=== PATIENT | male | born 1995 | race Caucasian/White ===

== ENCOUNTER 2017-05-28 18:26 | Emergency (ER) | payer SELFPAY ==
[~2017-05-28] VITALS: Ht 190.5 cm; Wt 68.0 kg
[~2017-05-28 18:26] MED LIST: AMOXICILLIN500 MG PO; BENADRYL25 MG PO; KEPPRA1000 MG PO; KEPPRA500 MG PO; NAPROXEN500 MG PO; NORCO 5-325 TA1 EACH PO; PHENYTOIN SODI300 MG PO; PREDNISONE20 MG PO; TRAMADOL HCL50 MG PO; TRAZODONE HCL100 MG PO; TRAZODONE HCL150 MG PO
== END 2017-05-28 19:38 | disposition home or self-care (01) ==
LOC: ED 18:26
DX: R55 Syncope and collapse (principal); F17.200 Nicotine dependence, unspecified, uncomplicated; Z91.038 Other insect allergy status; Z88.7 Allergy status to serum and vaccine
CPT/HCPCS: 99282

== ENCOUNTER 2017-05-29 17:23 | Emergency (ER) | payer SELFPAY ==
[~2017-05-29] VITALS: Ht 190.5 cm; Wt 74.8 kg
== END 2017-05-29 19:50 | disposition home or self-care (01) ==
LOC: ED 17:23
DX: R11.10 Vomiting, unspecified (principal); F17.200 Nicotine dependence, unspecified, uncomplicated; Z91.038 Other insect allergy status; Z88.7 Allergy status to serum and vaccine
CPT/HCPCS: 80053; 83690; 85025; 96361; 96374; 96375; 99283; J1885; J2405; J7030

== ENCOUNTER 2017-06-01 14:49 | Emergency (ER) | payer SELFPAY ==
[~2017-06-01] VITALS: Ht 190.5 cm; Wt 74.8 kg
== END 2017-06-01 15:48 | disposition home or self-care (01) ==
LOC: ED 14:49
DX: R56.9 Unspecified convulsions (principal); F17.200 Nicotine dependence, unspecified, uncomplicated; Z91.030 Bee allergy status; Z90.49 Acquired absence of other specified parts of digestive tract
CPT/HCPCS: 99283

== ENCOUNTER 2017-11-14 12:10 | Emergency (ER) | payer SELFPAY ==
[~2017-11-14] VITALS: Ht 190.5 cm; Wt 72.6 kg
== END 2017-11-14 13:03 | disposition left against medical advice (07) ==
LOC: ED 12:10
DX: G40.909 Epilepsy, unspecified, not intractable, without status epilepticus (principal); F17.200 Nicotine dependence, unspecified, uncomplicated; Z91.030 Bee allergy status; Z88.8 Allergy status to other drugs, medicaments and biological substances
CPT/HCPCS: 96374; 99283; J2405

== ENCOUNTER 2018-07-12 02:28 | Emergency (ER) | payer MEDICAID ==
[~2018-07-12] VITALS: Ht 190.5 cm; Wt 72.6 kg
== END 2018-07-12 04:45 | disposition home or self-care (01) ==
LOC: ED 02:28
DX: L50.9 Urticaria, unspecified (principal); F10.10 Alcohol abuse, uncomplicated; F17.200 Nicotine dependence, unspecified, uncomplicated; Z91.030 Bee allergy status; Z88.8 Allergy status to other drugs, medicaments and biological substances
CPT/HCPCS: 96374; 96375; 99282; J1200; J2930

== ENCOUNTER 2019-03-19 14:33 | Emergency (ER) | payer SELFPAY ==
--- OUTSIDE RECORDS SUMMARY | 2019-03-19 14:36 | XMS ---
PreManage Notification: MARY HILLMAN Security Manager Company Events No recent Security Events currently on file CRITERIA MET - Group Notification CARE PROVIDERS There are no care providers on record at this time. Diony has no Care Guidelines for this patient. Terri VISIT COUNT (12 MO.) 2 [facility] TOTAL 2 NOTE: Visits indicate total known visits. ED/C VISIT TRACKING (12 MO.) 03/19/2019 14:34 [facility] [place] TYPE: Emergency COMPLAINT: - SEIZURE 07/12/2018 02:29 [facility] [place] TYPE: Emergency COMPLAINT: - BODY RASH DIAGNOSES: - Nicotine dependence, unspecified, uncomplicated - Bee allergy status - Urticaria, unspecified - Rash and other nonspecific skin eruption - Alcohol abuse, uncomplicated - Allergy status to other drugs, medicaments and biological substances status INPATIENT VISIT TRACKING (12 MO.) No inpatient visits to display in this time frame [email or web address]
== END 2019-03-19 16:40 | disposition short-term general hospital (02) ==
LOC: ED 14:33
DX: S02.91XA Unspecified fracture of skull, initial encounter for closed fracture (principal); S06.6X9A Traumatic subarachnoid hemorrhage with loss of consciousness of unspecified duration, initial encounter; R56.9 Unspecified convulsions; F17.200 Nicotine dependence, unspecified, uncomplicated; W17.89XA Other fall from one level to another, initial encounter; Z91.030 Bee allergy status
CPT/HCPCS: 70450; 72125; 80053; 85025; 96374; 96375; 99285-25; G0480

== ENCOUNTER 2020-03-23 09:19 | Emergency (ER) | payer SELFPAY ==
[~2020-03-23] VITALS: Ht 190.5 cm; Wt 83.9 kg
--- OUTSIDE RECORDS SUMMARY | ~2020-03-23 | XMS | Encounter Summary ---
Demographics + + + | Address | [address] | | | [place] [address] | + + + | Home Phone | | + + + | Preferred Language | Unknown | + + + | Marital Status | Single | + + + | Sabianism Affiliation | NRP | + + + | Race | White | + + + | Ethnic Group | Not or | + + + Author + + + | Author | [facility] | + + + | Organization | [facility] | + + + | Address | Unknown | + + + | Phone | Unavailable | + + + Support + + +---------+ + | Name | Relationship | Address | Phone | + + +---------+ + | Cheri Hillman | ECON | Unknown | | + + +---------+ + | Marleny Harris | ECON | Unknown | | + + +---------+ + Care Team Providers + +------+ + | Care Chief Digital Officer Name | Role | Phone | + +------+ + | No Pcp Per Patient | PCP | Unavailable | + +------+ + Reason for Visit +--------+ + | Reason | Comments | +--------+ + | Trauma | | +--------+ + AUTH/CERT +--------+--------+ + + + + | Status | Reason | Specialty | Diagnoses / | Referred By | Referred To | | | | | Procedures | Contact | Contact | +--------+--------+ + + + + | | | | | | | +--------+--------+ + + + + Encounter Details +--------+ + + + + | Date | Type | Department | Care Team | Description | +--------+ + + + + | 03/19/ | Hospital | [address] | Esha Gooden, | | | 2019 - | Encounter | [address] | [address] | | | | | [facility] | [address] | | | 03/20/ | | [facility] [place] | [place], [place] | | | 2019 | | [address] | [address] | | | | | [phone] | [phone] | | | | | | | | | | | | Ren Bose, | | | | | | [address] | | | | | | [address] | | | | | | [place], [place] | | | | | | [address] | | | | | | [phone] | | | | | | | | +--------+ + + + + Social History + +-------+ +--------+------+ | Tobacco Use | Types | Packs/Day | Years | Date | | | | | Used | | + +-------+ +--------+------+ | Never Assessed | | | | | + +-------+ +--------+------+ + + + | Sex Assigned at | Date Recorded | | | | + + + | Not on file | | + + + + + + + | Job Start Date | Occupation | Industry | + + + + | Not on file | Not on file | Not on file | + + + + + + + + | Travel History | Travel Start | Travel End | + + + + + + | No recent travel history available. | + + documented as of this encounter Last Filed Vital Signs + + + + + | Vital Sign | Reading | Time Taken | Comments | + + + + + | Blood Pressure | 117/65 | 03/20/2019 4:00 PM | | | | | PDT | | + + + + + | Pulse | 62 | 03/20/2019 4:00 PM | | | | | PDT | | + + + + + | Temperature | 36.4 C (97.5 F) | 03/20/2019 4:00 PM | | | | | PDT | | + + + + + | Respiratory Rate | 14 | 03/20/2019 4:00 PM | | | | | PDT | | + + + + + | Oxygen Saturation | 99% | 03/20/2019 4:00 PM | | | | | PDT | | + + + + + | Inhaled Oxygen | - | - | | | Concentration | | | | + + + + + | Weight | 73 kg (160 lb 15 oz) | 03/19/2019 7:13 PM | | | | | PDT | | + + + + + | Height | 188 cm (6' 2") | 03/19/2019 7:13 PM | | | | | PDT | | + + + + + | Body Mass Index | 20.66 | 03/19/2019 7:13 PM | | | | | PDT | | + + + + + documented in this encounter Functional Status + + + + | Functional Status | Response | Date of Assessment | + + + + | Because of a physical, mental, or emotional | No | 03/20/2019 | | condition, do you have serious difficulty | | | | doing errands alone such as visiting the | | | | doctor? | | | + + + + + + + + | Cognitive Status | Response | Date of Assessment | + + + + | Because of a physical, mental, or emotional | No | 03/20/2019 | | condition, do you have serious difficulty | | | | concentrating, remembering, or making | | | | decisions? (5 years old or older) | | | + + + + documented as of this encounter Discharge Summaries Clyde Sanches MD - 03/20/2019 4:53 PM PDTFormatting of this note might be different from jo ann johnston. [facility] Discharge Summary Discharging Provider: Clyde Sanches MD Admitting Surgeon: Ren Bose MD PCP: No Pcp Per PATIENT Admission Date: 03/19/2019 Discharge Date: 03/20/19 Hospital Stay: 1 day(s) Reason for Admission: Fall from 5 feet Principal Final Diagnosis: 1. Subarachnoid hemorrhage 2. Temporal bone fracture Additional Diagnoses: None Procedures: None Active Pre-existing diagnoses/comorbidities: Epilepsy Hospital course: Patient was admitted as a trauma after having a seizure and fall about 5 feet onto his head . He has a history of epilepsy. He was found to have a non-displaced temporal bone fracture and trace subarachnoid hemorrhage. Neurosurgery was consulted and recommended non-operative management. ENT was consulted for the temporal bone fracture and also recommended non-operat shaun management. Neurology was consulted for antiepileptic medication adjustment. Social work was consulted to assist in obtaining insurance coverage. Patient was medically appropriate for discharge on hospital day 1 and was sent home in good condition. The patient worked with therapies prior to discharge and is now stable for discharge. All q uestions and concerns were addressed. Discharge Medications: Medication List START taking these medications oxyCODONE (immediate release) 5 mg Tab Commonly known as: ROXICODONE Take 1 tablet by mouth every six hours as needed for breakthrough pain. valproic acid 250 mg Cap Commonly known as: DEPAKENE Take 2 capsules by mouth two times daily. Allergies: Allergies Allergen Reactions Tetanus And Diphther. Tox (Pf) Unknown States it made him sick Additional Instructions: Condition on Discharge Good Diet Regular Regular diet- There are no restrictions to your diet. You may eat or drink whatever you pr efer, though healthy food choices are recommended. Activity Activity restrictions: No strenuous activity Other Discharge Orders and Instructions Basic seizure precautions as below (please provide to the patient for discharge) No driving until 3 months seizure free No operating heavy machinery. No tub baths without close supervision, this could place you at risk for drowning. No swimming without close supervision, this could place you at risk for drowning. Avoid unsecured heights that could place you at risk for serious injury if you were to lose consciousness or awareness and fall. If the patient has an event please gently lower them to the floor if possible, roll them on their side so their tongue does not prevent them from breathing, also so they do not choke on their secretions or vomit. Do not place anything in their mouth such as finger since they can get bitten during a seizure. If you suspect the person has inhaled his/her own vomit, c all a doctor immediately. After a seizure: Allow the person to lie quietly. As they awaken, gently call them by name and explain what happened and where they are. It is not cause for alarm if the person urinates or has a bowel movement after the seizure. If the person has an injury, such as heavy bleeding from the tongue, call an ambulance. Try to write down an accurate description of the seizure as soon as possible. Try to note h ow long the seizure lasted and what the person was doing before, during and after. Things that might cause a seizure Stressful situations Fever Drinking alcohol Constipation Caffeine Hyperventilation Low blood sugar Loud noises Menstruation Flashing lights Caffeine Lack of sleep Fatigue Drinking a lot of water SURGERY DISCHARGE INSTRUCTIONS DIET: Resume your normal pre-operative diet, however it is advisable to eat a light diet for a da y or two following surgery. It is normal to have a decreased appetite for several days afte r surgery. Many patients find that eating multiple small meals after surgery is easier than trying to eat 3 large meals. ACTIVITY: Follow above activity orders for seizure precautions If taking narcotic pain medicine (e.g. Oxycodone, Percocet, Hydrocodone, Vicodin) you canno t drive or operate machinery, as these medicines may make you drowsy and lose concentration. Your reaction time and judgement will be impaired, just as though you were intoxicated. WOUND CARE: You have jarrod in your skin that were used to close your incision. These will stay in unt il you are seen in clinic. When it is time for them to come out, someone at the clinic will remove them. A small amount of redness at each staple is normal. Shower: When your dressing is removed in 48 hours, you may shower regularly and allow soapy water to wash over your incision(s). Pat them dry; do not scrub. Baths: Do not submerge your incisions (tub/pool/bath) for at least 7 days. Rubbing/Irritation: If clothes rub your incision, we recommend covering with loose gauze or a band-aid after your outer dressing has been removed. Sunscreen: Protection of a recent incision from the sun is preferable for the first 6 month s, otherwise the scar tissue may darken abnormally. Using sunblock over incisions reduces th is cosmetic concern. Lotions/Creams: Do not use other lotions, creams or ointments on incision unless directed t o do so by your physician. Bruising: You may experience some bruising around the incision site. If you have concerns about the amount of bruising, or there is a hard bulge associated with the brusing please contact your digital project coordinator. MEDICATIONS: See medication list for changes. Pain Medications: Acetaminophen (Tylenol) and ibuprofen (Advil, Motrin) can be very effecti ve for post-operative pain. As long as you don't have allergies or sensitivities to these me dications you may take 650mg of acetaminophen and 400mg ibuprofen every 6 hours. Stagger the m every 3 hours for better pain control. Take ibuprofen with food and limit its use to one week, as it can irritate your stomach. If you still experience significant post-operative p ain, then you may take the prescribed narcotic-opioid (e.g. oxycodone, hydrocodone, Vicodin, [place], Percocet, Dilaudid) as needed. However, Vicodin/[place] and Percocet contain acetam inophen in the pill itself so be sure to take EITHER Vicodin/Percocet OR Tylenol (Acetaminop hen), not both at the same time. Opioid pain medications may cause constipation, so be sure to take a stool softener if you take an opioid pain medication. Swelling/Pain: In addition to pain medications, you should apply an ice pack or bag of froz en peas in a thin cloth for the next [address] over the bandaged incision and the area of surgery (e.g. groin regions) for about 20-30 minutes at a time. This will help to n umb the area and reduce swelling, however it does not hasten healing. CONSTIPATION: Narcotic-opioid pain medications (e.g. oxycodone, hydrocodone, Vicodin, [place], Percocet, Di laudid) can be constipating, therefore you should take a stool softener on the same day as s tarting your narcotic pain medicine. Options include: Milk of Magnesia: 2 Tablespoons Twice daily Colace (=Docusate): 1 pill Twice daily While these are some recommendations, any xtxl-cyi-gjjusws stool softener should work, and generics are fine to use. Increase your fluids, especially your intake of water Increase your activity. Walk frequently. Discharging Provider: Clyde Sanches MD Discharging Surgeon : Adriano Raymond MD [facility] Division of Acute Care Surgery/Critical Care [address] [place] [address] [email or web address] signed by Adriano Raymond MD at 03/21/2019 11:02 AM PDT Associated attestation - Adriano Raymond MD - 03/21/2019 11:02 AM PDTAttending: I saw and examined Mary Hillman ([id number]) with Clyde Sanches MD on 03/20/2019 and agree with the assessment and plan as outlined in this discharge summary. Adriano Raymond MD [employer] Supervisor Trauma, Critical Care & Acute Care Surgery documented in this encounter Discharge Instructions Instructions Noam Nolasco RN - 03/20/2019Patient Education Materials: Seizure, Head injury Additional Instructions: Please follow all of your discharge instructions. Take medications as ordered. Monitor for signs of neurological impairment. Seek medical attention if your sy mptoms return. Discharge Nurse: NOAM NOLASCO RN Date: 03/20/2019 Discharge Time: 4:17 PM AttachmentsThe following attachments cannot be sent through Care Everywhere.Seizure (Eng[place])HEAD INJURY (IRISH)documented in this encounter Medications at Time of Discharge + + + +---------+ + + | Medication | Sig | Dispensed | Refills | Start | End Date | | | | | | Date | | + + + +---------+ + + | oxyCODONE | Take 1 tablet by | 15 | 0 | 03/20/20 | | | (immediate release) | mouth every six | tablet | | 19 | | | 5 mg oral tablet | hours as needed for | | | | | | | breakthrough pain. | | | | | + + + +---------+ + + | valproic acid 250 | Take 2 capsules by | 120 | 3 | 03/20/20 | | | mg oral capsule | mouth two times | capsule | | 19 | | | | daily. | | | | | + + + +---------+ + + documented as of this encounter Progress Notes Fredo Suarez MD,MPH - 03/20/2019 10:47 AM PDTBRIEF NEUROSURGERY NOTE 03/20/19 10:47 AM Reviewed overnight MRI with staff. We agree with official Radiology report that there is hi gh suspicion for an underlying Right temporal AVM, which would explain his seizure disorder and his presentation today. This was discussed with Dr. Ulises Easley, cerebrovascular neuros urgeon on-call. We recommended formal catheter-directed angiography, which we would be able to schedule for tomorrow, 03/21, if Mr. Hillman remained admitted. He was appraised of this as w ell as the risks and benefits of angiography and potential treatment modalities for a vascul ar malformation, if identified. He states his intention to leave the hospital as soon as pos sible and does not wish to pursue this while an inpatient. I advised him that in addition to seizures, AVMs carry some rupture risk with the potential for devastating neurologic conseq uences, though this is unquantifiable without the information provided by an angiogram. Full y aware of the risks and responsibility he is taking upon himself, he opted for outpatient f ollow-up and an elective angiogram at some future date. We will do our best to coordinate th is after discharge. Please contact the Neurosurgery resident on-call pager [phone] with questions or concerns. Fredo Suarez M.D., M.P.H. R2 Resident Physician Neurological Surgery Pager: [phone] signed by Fredo Suarez MD,MPH at 03/20/2019 10:51 AM Clyde Hassan MD - 03/20/2019 6:43 AM PDTFormatting of this note might be different from the origi nal. Trauma / Surgical Critical Care Service - CONSULTATION NOTE Name: MARY HILLMAN Date: 03/20/2019 Time: 6:44 AM Author: Clyde Sanches MD HPI: 24 y.o. male admitted on 03/19/2019 6:17 PM after a fall from 5 feet. Patient has a h istory of epilepsy. Injuries: 1. BIG 1 SAH 2. Left non-displaced temporal bone Fx Procedures: None Review of Systems Constitutional - Negative for fevers/chills Eyes/Ears/Nose/Mouth/Throat - Negative for changes in vision Cardiovascular - Negative for chest pain, dysrhythmia Respiratory - Negative for dyspnea Gastrointestinal - Negative for nausea or vomiting, no history GI bleed hepatitis Genitourinary - Negative for dysuria Hematologic/Lymphatic - Negative for bruising Skin - Negative for rash, lesion Endocrine - Negative for history of diabetes Vitals: Reviewed in Epic Physical Examination: General: adult male, laying in bed, NAD HEENT: MMM Lungs: Unlabored breathing on , CTAB CV: Regular, Non-tachy Abdomen: Soft, nondistended, nontender Extremities: WWP Neuro: GCS 15, Cranial nerves 2-12 intact to confrontation, speech normal and fluent, stren gth symmetric and 5/5 in upper and lower extremities. Sensation intact to light touch in upp er and lower extremities. Labs: Lab Results Component Value Date WBC 8.10 03/20/2019 HB 13.1 03/20/2019 HCT 37.1 03/20/2019 PLT 195 03/20/2019 MCV 89.8 03/20/2019 RDW 37.2 03/20/2019 Lab Results Component Value Date NA 140 03/20/2019 K 3.6 03/20/2019 CL 107 03/20/2019 BICARB 24 03/20/2019 BUN 11 03/20/2019 CR 0.65 03/20/2019 GLU 83 03/20/2019 CA 8.4 03/20/2019 AST 16 03/19/2019 ALT 17 03/19/2019 AP 60 03/19/2019 TBILI 0.5 03/19/2019 TP 7.0 03/19/2019 ALB 3.7 03/20/2019 ANIONGAP 9 03/20/2019 ANIONALBCOR 9 03/20/2019 Lab Results Component Value Date APTT 28.6 03/19/2019 FIBRINOGEN 228 03/19/2019 Assessment: 24yo M with epilepsy s/p fall from 5 feet. Active Issues/Plan: Neuro/Pain: Acute pain -Multimodal SAH -Stable -Neurosurgery has signed off Epilepsy -Neurology consulted -Keppra 750mg bid -Social work for insurance issues HEENT: Non-displaced left temporal bone Fx -ENT consulted, non-op, signed-off -Ear drops -Mechanical soft diet -Monitor for CSF leak CV: Bradycardic, Asymptomatic -Montior -replace lytes prn Pulmonary/Chest: No acute issues at this time GI/FEN/Lytes: Mechanical soft diet Replace lytes prn /Renal: No acute issues at this time MSK/SKIN: No acute issues at this time Endo: No acute issues at this time Heme: No acute issues at this time ID: No infectious concerns at this time F: Mechamical soft A: Multimodal S: None T: SCD H: > 30 degrees U: None G: WML Spines: Cleared Dispo: ICU level care, can transfer to [facility] at 1900 tonight Clyde Sanches MD (R2) General Surgery [facility] TSICU Team Pager: [phone] Associated attestation - Adriano Raymond MD - 03/21/2019 11:02 AM PDTFormatting of this note m ight be different from the original. I saw and examined Mary Hillman ([id number]) with the ICU team on 03/20/2019. I agree with the assessment and plan as outlined in this note and participated in the planning of care. I hav e personally reviewed all pertinent labarotory findings, radiographs, and physiologic parame ters. I personally performed pertinent parts of the physical examination and personally form ulated the plan with the TSICU team. Mary Hillman remains hospitalized for the the following injuries and problems: Patient Active Problem List Diagnosis SAH (subarachnoid hemorrhage) ([facility]) Closed fracture of base of skull, unspecified laterality, initial encounter ([facility]) Closed fracture of left side of mandible, unspecified mandibular site, initial encounte r ([facility]) Seizure disorder ([facility]) Encounter for monitoring anticonvulsant therapy Fall from ground level May transfer to [facility] after 24 hours of stable neurochecks. Continue PT/OT for mobility uriel didier. Will continue monitor adequate pain control and incentive spirometry for pulmonary jovanny iet. sales enablement manager for disposition planning and placement. Adriano Raymond MD [employer] Supervisor Division of Trauma and Critical Care Amilcar Cross MD - 03/20/2019 4:02 AM PDT NEUROSURGERY PROGRESS NOTE INTERVAL UPDATE: - NAEON - Na 140 - INR 1.07 OBJECTIVE: EXAM: BP 113/65 | Pulse 53 | Temp 36.8 C (98.2 F) | Resp 14 | Ht 1.88 m (6' 2") | Wt 73 kg (160 lb 15 oz) | SpO2 98% | BMI 20.66 kg/m | BSA 1.95 m AAOx3 PERRL, EOMI, FS, no hearing on L, TML BUE/BLE 5/5, no drift SILT LABS: Reviewed. Pertinent labs noted above. ASSESSMENT/PLAN: Mary Hlilman is a 24yo man w epilepsy who presents after seizure/GLF, found to have small R temporal tSAH and left petrous bone fracture with expected left-sided hearing loss. - Ok tx - F/u MRI read - DVT ppx ok 48 hrs after stable CTH - Anti-plt/anti-coag ok 2 wks after stable CTH NSG will sign off. Amilcar Cross MD Neurosurgery PGY2 [id number] documented in this en counter Plan of Treatment Not on filedocumented as of this encounter Procedures + +--------+ + + + | Procedure Name | Priori | Date/Time | Associated Diagnosis | Comments | | | ty | | | | + +--------+ + + + | EEG ROUTINE | Routin | 03/20/2019 | | Results for this | | | e | 12:14 PM | | procedure are in the | | | | PDT | | results section. | + +--------+ + + + | MRI BRAIN EPILEPSY | Urgent | 03/20/2019 | | Results for this | | WO CONTRAST | | 2:31 AM | | procedure are in the | | | | PDT | | results section. | + +--------+ + + + | CBC (HEMOGRAM) ONLY | Urgent | 03/20/2019 | | Results for this | | | | 12:22 AM | | procedure are in the | | | | PDT | | results section. | + +--------+ + + + | RENAL FUNCTION SET | Urgent | 03/20/2019 | | Results for this | | (NA,K,CL,CO2,BUN,CRE | | 12:22 AM | | procedure are in the | | AT,GLUC,CA,PHOS,ALB | | PDT | | results section. | | ) | | | | | + +--------+ + + + | CBC ONLY | Urgent | 03/20/2019 | | Results for this | | | | 12:22 AM | | procedure are in the | | | | PDT | | results section. | + +--------+ + + + | MAGNESIUM, PLASMA | Urgent | 03/20/2019 | | Results for this | | | | 12:22 AM | | procedure are in the | | | | PDT | | results section. | + +--------+ + + + | 12 LEAD ECG | Routin | 03/19/2019 | | Results for this | | | e | 7:18 PM | | procedure are in the | | | | PDT | | results section. | + +--------+ + + + | CT HEAD WO CONTRAST | Urgent | 03/19/2019 | | Results for this | | | | 7:02 PM | | procedure are in the | | | | PDT | | results section. | + +--------+ + + + | CT TEMPBONE BENIGN | Urgent | 03/19/2019 | | Results for this | | DISEASE WO CONTRAST | | 7:02 PM | | procedure are in the | | | | PDT | | results section. | + +--------+ + + + | CHEM 8 W/H&H,POC | Urgent | 03/19/2019 | SAH (subarachnoid | Results for this | | | | 6:58 PM | hemorrhage) (HCC) | procedure are in the | | | | PDT | | results section. | + +--------+ + + + | BG-LAC,POC ISTAT | Urgent | 03/19/2019 | SAH (subarachnoid | Results for this | | | | 6:57 PM | hemorrhage) (HCC) | procedure are in the | | | | PDT | | results section. | + +--------+ + + + | COAGULOPATHY PANEL | Urgent | 03/19/2019 | | Results for this | | (INR,APTT,FIBRINOGEN | | 6:47 PM | | procedure are in the | | ) | | PDT | | results section. | + +--------+ + + + | RAINBOW HOLD TUBE - | Urgent | 03/19/2019 | | | | RED TOP | | 6:21 PM | | | | | | PDT | | | + +--------+ + + + | CBC (HEMOGRAM) ONLY | Urgent | 03/19/2019 | | Results for this | | | | 6:21 PM | | procedure are in the | | | | PDT | | results section. | + +--------+ + + + | RAINBOW HOLD, CORE | Urgent | 03/19/2019 | | Results for this | | PANEL | | 6:21 PM | | procedure are in the | | | | PDT | | results section. | + +--------+ + + + | COMPLETE METABOLIC | Urgent | 03/19/2019 | | Results for this | | SET | | 6:21 PM | | procedure are in the | | (NA,K,CL,CO2,BUN,CRE | | PDT | | results section. | | AT,GLUC,CA,AST,ALT,B | | | | | | VASYL TOTAL,ALK | | | | | | PHOS,ALB,PROT TOTAL) | | | | | + +--------+ + + + | CBC ONLY | Urgent | 03/19/2019 | | Results for this | | | | 6:21 PM | | procedure are in the | | | | PDT | | results section. | + +--------+ + + + | ANTIBODY SCREEN | Urgent | 03/19/2019 | | Results for this | | | | 6:21 PM | | procedure are in the | | | | PDT | | results section. | + +--------+ + + + | BLOOD BANK HOLD TUBE | Urgent | 03/19/2019 | | Results for this | | - DON | | 6:21 PM | | procedure are in the | | | | PDT | | results section. | | T PROCESS | | | | | + +--------+ + + + | TYPE AND SCREEN | Urgent | 03/19/2019 | | Results for this | | | | 6:21 PM | | procedure are in the | | | | PDT | | results section. | + +--------+ + + + | ABO & RH TYPE | Urgent | 03/19/2019 | | Results for this | | | | 6:21 PM | | procedure are in the | | | | PDT | | results section. | + +--------+ + + + | ETHANOL (ALCOHOL), | Urgent | 03/19/2019 | | Results for this | | BLOOD | | 6:21 PM | | procedure are in the | | | | PDT | | results section. | + +--------+ + + + | CONFIRMATORY ABO/RH | Routin | 03/19/2019 | | Results for this | | | e | 6:21 PM | | procedure are in the | | | | PDT | | results section. | + +--------+ + + + | MAGNESIUM, PLASMA | Urgent | 03/19/2019 | | Results for this | | | | 6:21 PM | | procedure are in the | | | | PDT | | results section. | + +--------+ + + + documented in this encounter Results EEG ROUTINE (03/20/2019 12:14 PM PDT) + + + | Narrative | Performed At | + + + | Patient Name: Mary Hillman Date of : 1995 Medical | [facility] - | | Record Number: [id number] Date of Test: 03/20/2019 Place of | [facility], | | Service: [place] [facility] [phone] [phone] [facility] Department: EEG HRC - | POINT OF CARE | | ROUTINE EEG Reason for Exam: Assess seizure risk. | TESTS | | History: Mary Hillman is a 24 year old man presenting with | | | "seizure disorder (no records available) who was admitted after a GLF | | | with resultant R frontotemporal SAH and L petrous bone fracture on | | | whom neurology is consulted with concern for breakthrough seizure. | | | Also has likely right temporal AVM." State: Awake only | | | Medications: acetaminophen (TYLENOL) tablet 1,000 mg, 1,000 mg, | | | oral, Q8H bisacodyl (DULCOLAX) suppository 10 mg, 10 mg, rectal, | | | DAILY PRN HYDROmorphone (DILAUDID) injection 0.5 mg, 0.5 mg, | | | intravenous, Q2H PRN levETIRAcetam (KEPPRA) tablet 750 mg, 750 mg, | | | oral, BID nicotine (NICOTROL) 14 mg/24 hr 1 patch, 1 patch, | | | transdermal, DAILY oxyCODONE (immediate release) (ROXICODONE) tablet | | | 2.5-5 mg, 2.5-5 mg, oral, Q3H PRN polyethylene glycol (MIRALAX) | | | packet 34 g, 34 g, oral, TID PRN senna-docusate (SENOKOT S) 8.6-50 mg | | | 1 tablet, 1 tablet, oral, BID valproic acid (DEPAKENE) capsule 500 | | | mg, 500 mg, oral, BID | | | | | | Methods: This study was a Routine EEG with a duration of 27 minutes. | | | The recording was performed with routine electrodes applied | | | according to the 10-20 electrode placement system. Video, EKG, and EOG | | | monitoring were utilized. The recording was obtained on a digital | | | system. EEG computer review was utilized. Automated digital spike and | | | seizure detection analysis was used, along with patient-activated | | | alarms and nursing observations. EEG Description: Background: | | | The background is variable, reactive, and with overall normal | | | voltage. In the maximally alert state, there is a well-modulated | | | posterior dominant rhythm of 9Hz that attenuates with eye opening. | | | Symmetric diffuse frontocentral beta range activity was present. | | | No sleep or drowsiness was captured. There are occasional | | | periods of frontally-predominant generalized 2-3Hz slowing, at times | | | appearing semi rhythmic. Focal slowing: Occasional independent | | | 4-6Hz left frontotemporal and right temporal slowing is seen, though | | | rarely this occurs synchronously in bilateral temporal regions. Rare | | | 2-3Hz right hemispheric slowing is seen. Epileptiform activity: | | | Rare poorly formed blunted left temporal sharp waves are seen, | | | maximal at T3 though with a broad left frontotemporal field. | | | Ictal activity: No seizures were recorded. Clinical Events: No | | | push-button events. Activation: Sensory stimulation was not | | | performed. EKG: Single EKG lead showed a normal sinus rhythm. | | | | | | Impression: This EEG capturing wakefulness is abnormal due to the | | | presence of: 1) occasional generalized frontally-predominant slowing, | | | 2) independent left frontotemporal and right temporal slowing, 3) rare | | | right hemispheric slowing, 4) rare poorly formed left temporal | | | epileptiform discharges. Clinical correlation: Focal epileptiform | | | activity can indicate underlying cortical hyperexcitability and an | | | increased risk of focal-onset seizures from this region. Focal slowing | | | is suggestive of underlying structural or functional abnormality and | | | may be related to known left skull fracture, right traumatic SAH, | | | possible right temporal AVM. Diffuse slowing is a nonspecific | | | abnormal finding consistent with numerous processes causing a diffuse | | | disturbance of cerebral function (aka encephalopathy). No seizures | | | or clinical events were seen. Results were paged to primary team | | | and communicated to neurology consult team. | | | | | | Electronically signed on 03/20/2019 at 2:09 PM JASEN LOYA MD. | | | I reviewed the study and agree with the interpretation above. | | | Electronically signed on 03/20/2019 at 3:53 PM - [facility] | | | ,[facility]. [employer] Caregiver of Neurology, [facility] | | | Center Suggested Modifier: None GC - Resident Present Suggested | | | CPT: 19548 - EEG Routine Awake Only Suggested Dx: R56.9 Unspecified | | | convulsions G93.49 Other encephalopathy G40.89 Other seizures | | | | | + + + + + + + + | Performing | Address | City/State/Zipcode | Phone Number | | Organization | | | | + + + + + | [facility] | [address] | [place], [place] | | | LOCO POINT OF CARE | [address] | [address] | | | TESTS | | | | + + + + + MRI BRAIN EPILEPSY WO CONTRAST (03/20/2019 2:31 AM PDT) + + | Specimen | + + | | + + + + + | Narrative | Performed At | + + + | - - - - - - - - ADDENDUM #1 - - - - - - - - ADDENDUM: | [facility] | | Please note that there are no findings suspicious for high flow | RADIOLOGY VOICE | | vascular malformation on this exam. I have personally reviewed the | RECOGNITION 2 | | images and, if necessary, edited the report. I agree with the report | | | as now presented. Final signature: Jaren Boyd MD | | | 03/20/2019 8:08 AM Preliminary: Jaren Boyd MD | | | Dictation initiated: Jaren Boyd MD 03/20/2019 8:07 AM - | | | - - - - - - - ORIGINAL REPORT - - - - - - - - EXAM: MR BRAIN | | | EPILEPSY WO CONTRAST HISTORY: seizure hx, new SAH, possible temp | | | bone mass COMPARISON: Head CT 03/19/2019 TECHNIQUE: | | | Multiplanar multi-sequence MRI of the brain without contrast. | | | FINDINGS: BRAIN: Hemorrhagic contusions involving the lateral | | | portions of the right superior and middle temporal gyri appear similar | | | to recent CT. No hydrocephalus, herniation or mass. No acute large | | | vessel infarction. No evidence of malformation of cortical | | | development. Hippocampi are symmetric and normal in bulk and signal | | | intensity. Hippocampal volumes are normal. SOFT TISSUES AND | | | MARROW: Left lateral scalp contusion redemonstrated. Fluid | | | opacification of the left mastoid, corresponding to temporal bone | | | fracture better depicted on dedicated temporal bone CT. FACE AND | | | ORBITS: Opacification of the sphenoid sinuses, suboptimally evaluated | | | here. IMPRESSION: Hemorrhagic contusions involving the lateral | | | aspect of the right temporal lobe, similar to yesterday's head CT. | | | Left lateral scalp contusion and underlying left temporal bone | | | fracture redemonstrated. Foci of | | | susceptibility within the right temporal lobe corresponds to | | | hyperdensity on comparison CTs is redemonstrated. There are | | | serpiginous tangle of flow voids in this area, suspicious for vascular | | | malformation I have personally reviewed the images and, if | | | necessary, edited the report. I agree with the report as now | | | presented. Final signature: Jaren Boyd MD 03/20/2019 | | | 7:45 AM Preliminary: Reina Aguilar DO Dictation initiated: | | | Reina Aguilar DO 03/20/2019 5:48 AM | | + + + + + | Procedure Note | + + | Service Account, Radiant Res In Interface - 03/20/2019 8:09 AM PDT - - - - - - - - | | ADDENDUM #1 - - - - - - - - ADDENDUM: Please note that there are no findings | | suspicious for high flow vascular malformation on this exam. I have personally reviewed | | the images and, if necessary, edited the report. I agree with the report as now | | presented. Final signature: Jaren Boyd MD 03/20/2019 8:08 AM Preliminary: | | Jaren Boyd MD Dictation initiated: Jaren Boyd MD 03/20/2019 8:07 | | AM - - - - - - - - ORIGINAL REPORT - - - - - - - - EXAM: MR BRAIN EPILEPSY WO CONTRAST | | HISTORY: seizure hx, new SAH, possible temp bone mass COMPARISON: Head CT 03/19/2019 | | TECHNIQUE: Multiplanar multi-sequence MRI of the brain without contrast. FINDINGS: | | BRAIN: Hemorrhagic contusions involving the lateral portions of the right superior and | | middle temporal gyri appear similar to recent CT. No hydrocephalus, herniation or mass. | | No acute large vessel infarction. No evidence of malformation of cortical development. | | Hippocampi are symmetric and normal in bulk and signal intensity. Hippocampal volumes | | are normal. SOFT TISSUES AND MARROW: Left lateral scalp contusion redemonstrated. Fluid | | opacification of the left mastoid, corresponding to temporal bone fracture better | | depicted on dedicated temporal bone CT.FACE AND ORBITS: Opacification of the sphenoid | | sinuses, suboptimally evaluated here. IMPRESSION: Hemorrhagic contusions involving the | | lateral aspect of the right temporal lobe, similar to yesterday's head CT. Left lateral | | scalp contusion and underlying left temporal bone fracture redemonstrated. | | Foci of susceptibility within the right temporal lobe corresponds to hyperdensity on | | comparison CTs is redemonstrated. There are serpiginous tangle of flow voids in this | | area, suspicious for vascular malformation I have personally reviewed the images and, if | | necessary, edited the report. I agree with the report as now presented. Final | | signature: Jaren Boyd MD 03/20/2019 7:45 AM Preliminary: Reina Aguilar DO | | Dictation initiated: Reina Aguilar DO 03/20/2019 5:48 AM | | | |BRAIN: | |Hemorrhagic contusions involving the lateral portions of the right superior and middle temp oral gyri appear similar to recent CT. No hydrocephalus, herniation or mass. No acute large vessel infarction. No | |evidence of malformation of cortical development. Hippocampi are symmetric and normal in bu lk and signal intensity. Hippocampal volumes are normal. | | | |SOFT TISSUES AND MARROW: Left lateral scalp contusion redemonstrated. Fluid opacification o f the left mastoid, corresponding to temporal bone fracture better depicted on dedicated tem poral bone CT. | |FACE AND ORBITS: Opacification of the sphenoid sinuses, suboptimally evaluated here. | | | |IMPRESSION: | | | |Hemorrhagic contusions involving the lateral aspect of the right temporal lobe, similar to yesterday's head CT. | | | |Left lateral scalp contusion and underlying left temporal bone fracture redemonstrated. | | | | | | | | | | | | | | | | | | | | | | | |Foci of susceptibility within the right temporal lobe corresponds to hyperdensity on compar vicki CTs is redemonstrated. There are serpiginous tangle of flow voids in this area, suspici ous for vascular malformation | | | |I have personally reviewed the images and, if necessary, edited the report. I agree with th e report as now presented. | | | |Final signature: Jaren Boyd MD 03/20/2019 7:45 AM | |Preliminary: Reina Aguilar DO | |Dictation initiated: Reina Aguilar DO 03/20/2019 5:48 AM | + + + +---------+ + + | Performing | Address | City/State/Zipcode | Phone Number | | Organization | | | | + +---------+ + + | [facility] | | | | | VOICE RECOGNITION 2 | | | | + +---------+ + + CBC (HEMOGRAM) ONLY (03/20/2019 12:22 AM PDT) + + + + + + | Component | Value | Ref Range | Performed | Pathologist | | | | | At | Signature | + + + + + + | WHITE CELL | 8.10 | 3.50 - 10.80 | [facility] | | | COUNT | | K/cu mm | LABORATORY | | | | | | SERVICES, | | | | | | CORE | | + + + + + + | RED CELL | 4.13 (L) | 4.50 - 6.00 | [facility] | | | COUNT | | M/cu mm | LABORATORY | | | | | | SERVICES, | | | | | | CORE | | + + + + + + | HEMOGLOBIN | 13.1 (L) | 13.5 - 17.5 | [facility] | | | | | g/dL | LABORATORY | | | | | | SERVICES, | | | | | | CORE | | + + + + + + | HEMATOCRIT | 37.1 (L) | 41.0 - 53.0 % | [facility] | | | | | | LABORATORY | | | | | | SERVICES, | | | | | | CORE | | + + + + + + | MCV | 89.8 | 80.0 - 100.0 fL | [facility] | | | | | | LABORATORY | | | | | | SERVICES, | | | | | | CORE | | + + + + + + | MCHC | 35.3 | 32.0 - 36.0 | [facility] | | | | | g/dL | LABORATORY | | | | | | SERVICES, | | | | | | CORE | | + + + + + + | RDW SD | 37.2 | 35.1 - 46.3 fL | [facility] | | | | | | LABORATORY | | | | | | SERVICES, | | | | | | CORE | | + + + + + + | PLATELET | 195 | 150 - 400 K/cu | [facility] | | | COUNT | | mm | LABORATORY | | | | | | SERVICES, | | | | | | CORE | | + + + + + + | MPV | 9.4 (L) | 9.7 - 12.3 fL | [facility] | | | | | | LABORATORY | | | | | | SERVICES, | | | | | | CORE | | + + + + + + | NRBC% | 0.0 | 0.0 - 0.3 % | [facility] | | | | | | LABORATORY | | | | | | SERVICES, | | | | | | CORE | | + + + + + + | NRBC# | 0.00 | 0.00 - 0.02 | [facility] | | | | | K/cu mm | LABORATORY | | | | | | SERVICES, | | | | | | CORE | | + + + + + + + + | Specimen | + + | Blood - Blood | | (substance) | + + + + + + + | Performing | Address | City/State/Zipcode | Phone Number | | Organization | | | | + + + + + | [facility] | [address] | [place] [address] | | | SERVICES, CORE | [address] | | | + + + + + MAGNESIUM, PLASMA (03/20/2019 12:22 AM PDT) + +-------+ + + + | Component | Value | Ref Range | Performed | Pathologist | | | | | At | Signature | + +-------+ + + + | MAGNESIUM,P | 1.9 | 1.6 - 2.6 mg/dL | [facility] | | | LASMA | | | LABORATORY | | | | | | SERVICES, | | | | | | CORE | | + +-------+ + + + + + | Specimen | + + | Blood - Blood | | (substance) | + + + + + + + | Performing | Address | City/State/Zipcode | Phone Number | | Organization | | | | + + + + + | [facility] | [address] | [place] [address] | | | [address] | [address] | | | + + + + + RENAL FUNCTION SET (NA,K,CL,CO2,BUN,CREAT,GLUC,CA,PHOS,ALB ) (03/20/2019 12:22 AM PDT) + + + + + + | Component | Value | Ref Range | Performed | Pathologist | | | | | At | Signature | + + + + + + | GLUCOSE, | 83 | 70 - 99 mg/dL | [facility] | | | PLASMA | | | LABORATORY | | | (LAB) | | | SERVICES, | | | | | | CORE | | + + + + + + | BUN, PLASMA | 11 | 6 - 20 mg/dL | [facility] | | | (LAB) | | | LABORATORY | | | | | | SERVICES, | | | | | | CORE | | + + + + + + | CREATININE | 0.65 (L) | 0.70 - 1.30 | [facility] | | | PLASMA | | mg/dL | LABORATORY | | | (LAB) | | | SERVICES, | | | | | | CORE | | + + + + + + | EGFR | >60 | >60 mL/min | [facility] | | | - | | | LABORATORY | | | ANGOLAN | | | SERVICES, | | | | | | CORE | | + + + + + + | EGFR NON | >60 | >60 mL/min | [facility] | | | -YOGESH | | | LABORATORY | | | RICAN | | | SERVICES, | | | | | | CORE | | + + + + + + | SODIUM, | 140 | 136 - 145 | [facility] | | | PLASMA | | mmol/L | LABORATORY | | | (LAB) | | | SERVICES, | | | | | | CORE | | + + + + + + | POTASSIUM, | 3.6 | 3.4 - 5.0 | [facility] | | | PLASMA | | mmol/L | LABORATORY | | | (LAB) | | | SERVICES, | | | | | | CORE | | + + + + + + | CHLORIDE, | 107 | 97 - 108 mmol/L | [facility] | | | PLASMA | | | LABORATORY | | | (LAB) | | | SERVICES, | | | | | | CORE | | + + + + + + | TOTAL CO2, | 24 | 21 - 32 mmol/L | [facility] | | | PLASMA | | | LABORATORY | | | (LAB) | | | SERVICES, | | | | | | CORE | | + + + + + + | CALCIUM, | 8.4 (L) | 8.6 - 10.2 | [facility] | | | PLASMA | | mg/dL | LABORATORY | | | (LAB) | | | SERVICES, | | | | | | CORE | | + + + + + + | CALCIUM(ALB | 8.6 | 8.6 - 10.2 | [facility] | | | CORRECTED) | | mg/dL | LABORATORY | | | | | | SERVICES, | | | | | | CORE | | + + + + + + | ALBUMIN, | 3.7 | 3.5 - 4.7 g/dL | [facility] | | | PLASMA | | | LABORATORY | | | (LAB) | | | SERVICES, | | | | | | CORE | | + + + + + + | PHOSPHORUS, | 4.0 | 2.4 - 4.7 mg/dL | [facility] | | | PLASMA | | | LABORATORY | | | (LAB) | | | SERVICES, | | | | | | CORE | | + + + + + + | POTASSIUM | No Hemo | | [facility] | | | CMNT | | | LABORATORY | | | | | | SERVICES, | | | | | | CORE | | + + + + + + | ANION GAP | 9 | 4 - 11 mmol/L | [facility] | | | | | | LABORATORY | | | | | | SERVICES, | | | | | | CORE | | + + + + + + | ANION | 9 | 4 - 11 mmol/L | [facility] | | | GAP(ALB | | | LABORATORY | | | CORRECTED) | | | SERVICES, | | | | | | CORE | | + + + + + + + + | Specimen | + + | Blood - Blood | | (substance) | + + + + + | Narrative | Performed At | + + + | GFR is estimated using the MDRD equation recommended by the | [facility] | | National Kidney Disease Education Program. Estimated GFR | LABORATORY | | Interpretive Information: <60 mL/min/1.73 sq m | SERVICES, CORE | | Chronic Kidney Disease <15 mL/min/1.73 sq m | | | Kidney Failure Estimated GFR greater than 60 mL/min/1.73 sq m is of | | | limited clinical value. The MDRD equation is not valid in the | | | following situations: - Patients under 18 years of age - Severe | | | malnutrition or obesity - Vegetarian diet - Rapidly changing kidney | | | function - Amputees, paraplegics, or other muscle-wasting diseses | | + + + + + + + + | Performing | Address | City/State/Zipcode | Phone Number | | Organization | | | | + + + + + | [facility] | [address] | [place] [address] | | | [address] | [address] | | | + + + + + 12 LEAD ECG (03/19/2019 7:18 PM PDT) + + + + + + | Component | Value | Ref Range | Performed | Pathologist | | | | | At | Signature | + + + + + + | VENTRICULAR | 59 | bpm | [facility] | | | RATE | | | OF | | | | | | CARDIOLOGY | | + + + + + + | ATRIAL RATE | 0 | ms | [facility] | | | | | | OF | | | | | | CARDIOLOGY | | + + + + + + | P-R | 156 | ms | [facility] | | | INTERVAL | | | OF | | | | | | CARDIOLOGY | | + + + + + + | P AXIS | -39 | deg | [facility] | | | | | | OF | | | | | | CARDIOLOGY | | + + + + + + | QRS | 126 | ms | [facility] | | | DURATION | | | OF | | | | | | CARDIOLOGY | | + + + + + + | QT | 426 | ms | [facility] | | | | | | OF | | | | | | CARDIOLOGY | | + + + + + + | STUART-TWILA | 423 | ms | [facility] | | | | | | OF | | | | | | CARDIOLOGY | | + + + + + + | R AXIS | -21 | deg | [facility] | | | | | | OF | | | | | | CARDIOLOGY | | + + + + + + | T AXIS | 65 | deg | [facility] | | | | | | OF | | | | | | CARDIOLOGY | | + + + + + + | ECG | Sinus bradycardia | | [facility] | | | IMPRESSION | | | OF | | | | | | CARDIOLOGY | | + + + + + + | ECG | IVCD, consider RBBB | | [facility] | | | IMPRESSION | | | OF | | | | | | CARDIOLOGY | | + + + + + + | ECG | ST elevation suggests | | [facility] | | | IMPRESSION | acute pericarditis- | | OF | | | | ABNORMAL ECG - | | CARDIOLOGY | | + + + + + + | ECG | Electronically signed | | [facility] | | | IMPRESSION | by: ANNY HANSEN | | OF | | | | 03-19-2019 22:18:35 | | CARDIOLOGY | | + + + + + + + + | Specimen | + + | | + + + + + | Narrative | Performed At | + + + | | | + + + + + + + + | Performing | Address | City/State/Zipcode | Phone Number | | Organization | | | | + + + + + | [facility] | [address] | [place], [place] | | | CARDIOLOGY | [address] | [phone] | | + + + + + CT HEAD WO CONTRAST (03/19/2019 7:02 PM PDT) + + | Specimen | + + | | + + + + + | Narrative | Performed At | + + + | EXAM: CT HEAD WITHOUT CONTRAST HISTORY: trauma, head bleed, | [facility] | | repeat CT head COMPARISON: Outside CT done earlier today. | RADIOLOGY VOICE | | TECHNIQUE: CT of the head without intravenous contrast. FINDINGS: | RECOGNITION 2 | | BRAIN: Foci of subarachnoid hemorrhage in the right convexity | | | sulci have mildly increased in prominence compared to prior. There is | | | also increasing effacement of the right cerebral convexity sulci. No | | | territorial infarction. No hydrocephalus. SOFT TISSUES: Mild soft | | | tissue swelling overlying the calvarial fracture. SKULL AND SKULL | | | BASE: Nondisplaced fracture of the squamous portion of the left | | | temporal bone. Redemonstration of left mastoid fracture with | | | opacification of the left external auditory canal and increasing | | | opacification within left mastoid air cells. FACE/ORBITS: Visualized | | | portions are unremarkable. PARANASAL SINUSES: Mucous retention cyst | | | in the sphenoid sinus again noted. IMPRESSION: Compared to CT | | | done few hours prior, mild interval blooming of the subarachnoid | | | hemorrhage in the right temporal sulci. Subtle increased effacement of | | | the sulci overlying the right cerebral convexity which may be related | | | to patient's seizure. Redemonstration of left temporal bone fracture. | | | I have personally reviewed the images and, if necessary, edited | | | the report. I agree with the report as now presented. Final | | | signature: Dolly Lopez MD 03/19/2019 7:46 PM Preliminary: | | | Dolly Lopez MD Dictation initiated: Dolly Lopez | | | 03/19/2019 7:39 PM | | + + + + + | Procedure Note | + + | Service Account, iPipeline Res In Interface - 03/19/2019 7:47 PM PDT EXAM: CT HEAD | | WITHOUT CONTRAST HISTORY: trauma, head bleed, repeat CT head COMPARISON: Outside CT | | done earlier today. TECHNIQUE: CT of the head without intravenous contrast. FINDINGS: | | BRAIN: Foci of subarachnoid hemorrhage in the right convexity sulci have mildly | | increased in prominence compared to prior. There is also increasing effacement of the | | right cerebral convexity sulci. No territorial infarction. No hydrocephalus. SOFT | | TISSUES: Mild soft tissue swelling overlying the calvarial fracture.SKULL AND SKULL | | BASE: Nondisplaced fracture of the squamous portion of the left temporal bone. | | Redemonstration of left mastoid fracture with opacification of the left external | | auditory canal and increasing opacification within left mastoid air cells.FACE/ORBITS: | | Visualized portions are unremarkable.PARANASAL SINUSES: Mucous retention cyst in the | | sphenoid sinus again noted. IMPRESSION: Compared to CT done few hours prior, mild | | interval blooming of the subarachnoid hemorrhage in the right temporal sulci. Subtle | | increased effacement of the sulci overlying the right cerebral convexity which may be | | related to patient's seizure. Redemonstration of left temporal bone fracture. I have | | personally reviewed the images and, if necessary, edited the report. I agree with the | | report as now presented. Final signature: Dolly Lopez MD 03/19/2019 7:46 PM | | Preliminary: Dolly Lopez MD Dictation initiated: Dolly Lopez MD | | 03/19/2019 7:39 PM | |be related to patient's seizure. Redemonstration of left temporal bone fracture. | | | |I have personally reviewed the images and, if necessary, edited the report. I agree with e report as now presented. | | | |Final signature: Dolly Lopez MD 03/19/2019 7:46 PM | |Preliminary: Dolly Lopez MD | |Dictation initiated: Dolly Lopez MD 03/19/2019 7:39 PM | + + + +---------+ + + | Performing | Address | City/State/Zipcode | Phone Number | | Organization | | | | + +---------+ + + | [facility] | | | | | VOICE RECOGNITION 2 | | | | + +---------+ + + CT TEMPBONE BENIGN DISEASE WO CONTRAST (03/19/2019 7:02 PM PDT) + + | Specimen | + + | | + + + + + | Narrative | Performed At | + + + | EXAM: CT Temporal Bones without contrast HISTORY: basilar | [facility] | | skull fx, concern for temporal bone fx COMPARISON: 03/19/2019 | RADIOLOGY VOICE | | outside CT TECHNIQUE: CT temporal bones without contrast with | RECOGNITION 2 | | coronal reformations. FINDINGS: Evaluation is somewhat limited | | | by patient positioning. Right temporal bone: The internal | | | auditory canal is normal.The cochlea, vestibule, and semicircular | | | canals are normal. There is no otosclerosis. The malleus, incus | | | and, stapes are present. The incus-stapedial joint is normal. The | | | oval and round windows are normal. Facial nerve is normal in its | | | course. The vestibular aqueduct is not dilated.The tympanic membrane | | | is normal. The internal carotid artery is normal in its course. | | | Left temporal bone: Comminuted nondisplaced left temporal bone | | | fractures and predominantly longitudinal orientation of the squamous | | | and mastoid temporal bone. Nondisplaced component involving the | | | anterior osseous portion of the external auditory canal with extension | | | through the condylar fossa at the temporomandibular joint noted. The | | | mandible appears intact. A small locules of pneumocephalus is also | | | present at the middle cranial fossa consistent with fracture component | | | violating the inner calvarial table, she along the squamous portion | | | of the temporal bone. No otic capsule violating fracture. The | | | ossicular chain appears intact, however evaluation is limited given | | | patient positioning. The facial nerve canal appears preserved. Soft | | | tissue attenuation in presumed blood products are seen within the | | | external auditory canal with retraction of the tympanic membrane. Left | | | mastoid effusion is noted. Mucous retention cyst within the | | | sphenoid sinus noted. IMPRESSION: Comminuted nondisplaced | | | longitudinally oriented left temporal bone fractures with nondisplaced | | | component coming into close proximity to the left carotid canal. CTA | | | could better evaluate vascular structures. Nondisplaced fracture | | | components also extend through the anterior external auditory canal | | | and TMJ condylar fossa. Trace pneumocephalus with squamous | | | temporal bone fracture violating the inner calvarial table. | | | Intracranial contents are otherwise better evaluated on the prior | | | outside CT. I have personally reviewed the images and, if | | | necessary, edited the report. I agree with the report as now | | | presented. Final signature: Jaren Boyd MD 03/20/2019 | | | 7:37 AM Preliminary: Bishop Dillard MD Dictation initiated: | | | Bishop Dillard MD 03/20/2019 7:11 AM | | + + + + + | Procedure Note | + + | Service Account, Radiant Res In Interface - 03/20/2019 7:38 AM PDT EXAM: CT | | Temporal Bones without contrast HISTORY: basilar skull fx, concern for temporal bone fx | | COMPARISON: 03/19/[address] TECHNIQUE: CT temporal bones without contrast with | | coronal reformations. FINDINGS: Evaluation is somewhat limited by patient positioning. | | Right temporal bone: The internal auditory canal is normal.The cochlea, vestibule, and | | semicircular canals are normal. There is no otosclerosis. The malleus, incus and, | | stapes are present. The incus-stapedial joint is normal. The oval and round windows | | are normal. Facial nerve is normal in its course. The vestibular aqueduct is not | | dilated.The tympanic membrane is normal. The internal carotid artery is normal in its | | course. Left temporal bone: Comminuted nondisplaced left temporal bone fractures and | | predominantly longitudinal orientation of the squamous and mastoid temporal bone. | | Nondisplaced component involving the anterior osseous portion of the external auditory | | canal with extension through the condylar fossa at the temporomandibular joint noted. | | The mandible appears intact. A small locules of pneumocephalus is also present at the | | middle cranial fossa consistent with fracture component violating the inner calvarial | | table, she along the squamous portion of the temporal bone. No otic capsule violating | | fracture. The ossicular chain appears intact, however evaluation is limited given | | patient positioning. The facial nerve canal appears preserved. Soft tissue attenuation | | in presumed blood products are seen within the external auditory canal with retraction | | of the tympanic membrane. Left mastoid effusion is noted. Mucous retention cyst within | | the sphenoid sinus noted. IMPRESSION:Comminuted nondisplaced longitudinally oriented | | left temporal bone fractures with nondisplaced component coming into close proximity to | | the left carotid canal. CTA could better evaluate vascular structures. Nondisplaced | | fracture components also extend through the anterior external auditory canal and TMJ | | condylar fossa. Trace pneumocephalus with squamous temporal bone fracture violating the | | inner calvarial table. Intracranial contents are otherwise better evaluated on the prior | | outside CT. I have personally reviewed the images and, if necessary, edited the report. | | I agree with the report as now presented. Final signature: Jaren Boyd MD | | 03/20/2019 7:37 AM Preliminary: Bishop Dillard MD Dictation initiated: Bishop Dillard MD 03/20/2019 7:11 AM | | | |Final signature: Jaren Boyd MD 03/20/2019 7:37 AM | |Preliminary: Bishop Dillard MD | |Dictation initiated: Bishop Dillard MD 03/20/2019 7:11 AM | + + + +---------+ + + | Performing | Address | City/State/Zipcode | Phone Number | | Organization | | | | + +---------+ + + | [facility] | | | | | VO[facility] RECOGNITION 2 | | | | + +---------+ + + CHEM 8 W/H&H,POC (03/19/2019 6:58 PM PDT) + + + + + + | Component | Value | Ref Range | Performed | Pathologist | | | | | At | Signature | + + + + + + | SODIUM, POC | 140 | 134 - 143 | [facility] | | | | | mmol/L | [facility] | | | | | | [facility] | | | | | | OF CARE | | | | | | TESTS | | + + + + + + | POTASSIUM, | 4.2 | 3.4 - 5.0 | [facility] - | | | POC | | mmol/L | [facility] | | | | | | [facility] | | | | | | OF CARE | | | | | | TESTS | | + + + + + + | CHLORIDE, | 102.0 | 97 - 108 mmol/L | [facility] - | | | POC | | | [facility] | | | | | | [facility] | | | | | | OF CARE | | | | | | TESTS | | + + + + + + | IONIZED | 1.28 | 1.14 - 1.32 | [facility] - | | | CALCIUM, | | mmol/L | [facility] | | | POC | | | [facility] | | | | | | OF CARE | | | | | | TESTS | | + + + + + + | TCO2, POC | 25 | 22 - 28 mmol/L | [facility] - | | | | | | [facility] | | | | | | [facility] | | | | | | OF CARE | | | | | | TESTS | | + + + + + + | GLUCOSE, | 90 | 60 - 99 mg/dL | [facility] - | | | POC | | | [facility] | | | | | | [facility] | | | | | | OF CARE | | | | | | TESTS | | + + + + + + | BUN, POC | 10 | 6 - 20 mg/dL | [facility] - | | | | | | [facility] | | | | | | [facility] | | | | | | OF CARE | | | | | | TESTS | | + + + + + + | CREATININE, | 0.7 | 0.7 - 1.3 mg/dL | [facility] - | | | POC | | | [place] | | | | | | [facility] | | | | | | OF CARE | | | | | | TESTS | | + + + + + + | HEMOGLOBIN, | 13.3 (L) | 13.5 - 17.5 | [facility] - | | | POC | | g/dL | [facility] | | | | | | [facility] | | | | | | OF CARE | | | | | | TESTS | | + + + + + + | HEMATOCRIT, | 39 (L) | 41.0 - 53.0 | [facility] - | | | POC | | %PCV | [facility] | | | | | | [facility] | | | | | | OF CARE | | | | | | TESTS | | + + + + + + + + | Specimen | + + | | + + + + + + + | Performing | Address | City/State/Zipcode | Phone Number | | Organization | | | | + + + + + | [facility] | [address] | [place], [place] | | | [facility] | [facility] | [phone] | | | TESTS | | | | + + + + + BG-BRANDY HORNE ISTAT (03/19/2019 6:57 PM PDT) + + + + + + | Component | Value | Ref Range | Performed | Pathologist | | | | | At | Signature | + + + + + + | TOTAL CO2 | 27 | 23 - 29 mmol/L | [facility] - | | | LISA, POC | | | [facility] | | | | | | LOCO, POINT | | | | | | OF CARE | | | | | | TESTS | | + + + + + + | PH VENOUS, | 7.30 (L) | 7.35 - 7.45 | [facility] - | | | POC | | | [facility] | | | | | | LOCO POINT | | | | | | OF CARE | | | | | | TESTS | | + + + + + + | PCO2 | 53 (H) | 35 - 50 mmHg | [facility] - | | | VENOUS, POC | | | [facility] | | | | | | LOCO, POINT | | | | | | OF CARE | | | | | | TESTS | | + + + + + + | HCO3 | 26 | 22 - 28 mmol/L | [facility] - | | | VENOUS, POC | | | [facility] | | | | | | HILL, POINT | | | | | | OF CARE | | | | | | TESTS | | + + + + + + | PO2 VENOUS, | <41 (L) | 30 - 55 mmHg | [facility] - | | | POC | | | [facility] | | | | | | LOCO, POINT | | | | | | OF CARE | | | | | | TESTS | | + + + + + + | O2 SAT | 36 | % | [facility] - | | | VENOUS, POC | | | [facility] | | | | | | LOCO, POINT | | | | | | OF CARE | | | | | | TESTS | | + + + + + + | LACTATE | 0.7 | 0.5 - 2.0 | [facility] - | | | VENOUS, POC | | mmol/L | [facility] | | | | | | HILL, POINT | | | | | | OF CARE | | | | | | TESTS | | + + + + + + | PAT TEMP | 98.6 F | | [facility] - | | | VENOUS,POC | | | [facility] | | | | | | LOCO, POINT | | | | | | OF CARE | | | | | | TESTS | | + + + + + + | BASE EXCESS | -1.0 | mmol/L | [facility] - | | | LISA, POC | | | [facility] | | | | | | LOCO, POINT | | | | | | OF CARE | | | | | | TESTS | | + + + + + + + + | Specimen | + + | | + + + + + + + | Performing | Address | City/State/Zipcode | Phone Number | | Organization | | | | + + + + + | [facility] | [address] | [place], [place] | | | [facility] | [facility] | [phone] | | | TESTS | | | | + + + + + COAGULOPATHY PANEL (INR,APTT,FIBRINOGEN) (03/19/2019 6:47 PM PDT) + +-------+ + + + | Component | Value | Ref Range | Performed | Pathologist | | | | | At | Signature | + +-------+ + + + | INR | 1.07 | 0.90 - 1.20 INR | [facility] | | | | | | LABORATORY | | | | | | SERVICES, | | | | | | CORE | | + +-------+ + + + | APTT | 28.6 | 26.0 - 36.0 | [facility] | | | | | seconds | LABORATORY | | | | | | SERVICES, | | | | | | CORE | | + +-------+ + + + | FIBRINOGEN | 228 | 150 - 450 mg/dL | [facility] | | | LEVEL | | | LABORATORY | | | | | | SERVICES, | | | | | | CORE | | + +-------+ + + + + + | Specimen | + + | Blood - Blood | | (substance) | + + + + + | Narrative | Performed At | + + + | INR Therapeutic ranges for full anticoagulation: INR for | [facility] | | Venous Thromboembolism (2.0 - 3.0) INR INR for | LABORATORY | | most patients with mech. valves (2.5 - 3.5) INR APTT values for | SERVICES, CORE | | monitoring heparin therapy may be affected by specimens processed >1 | | | hour after collection. APTT Therapeutic Range: | | | (75 - 120) sec Heparin levels of 0.35 - 0.7 U/mL | | + + + + + + + + | Performing | Address | City/State/Zipcode | Phone Number | | Organization | | | | + + + + + | [facility] | [address] | [place] [address] | | | SERVICES, CORE | [address] | | | + + + + + RAINBOW HOLD TUBE - RED TOP (03/19/2019 6:21 PM PDT) + + | Specimen | + + | Blood - Blood | | (substance) | + + + + + + + | Performing | Address | City/State/Zipcode | Phone Number | | Organization | | | | + + + + + | [facility] | [address] | [place] [address] | | | SERVICES, CORE | [address] | | | + + + + + ANTIBODY SCREEN (03/19/2019 6:21 PM PDT) + + + + + + | Component | Value | Ref Range | Performed | Pathologist | | | | | At | Signature | + + + + + + | Antibody | Negative | | [facility] | | | Screen | | | LABORATORY | | | | | | SERVICES, | | | | | | TRANSFUSION | | | | | | MEDICINE | | + + + + + + + + | Specimen | + + | Blood - Blood | | (substance) | + + + + + + + | Performing | Address | City/State/Zipcode | Phone Number | | Organization | | | | + + + + + | [facility] | [address] | [place] [address] | | | SERVICES, | [address] | | | | TRANSFUSION MEDICINE | | | | + + + + + ABO & RH TYPE (03/19/2019 6:21 PM PDT) + + + + + + | Component | Value | Ref Range | Performed | Pathologist | | | | | At | Signature | + + + + + + | ABO Group | O | | [facility] | | | | | | LABORATORY | | | | | | SERVICES, | | | | | | TRANSFUSION | | | | | | MEDICINE | | + + + + + + | Rh Type | Negative | | [facility] | | | | | | LABORATORY | | | | | | SERVICES, | | | | | | TRANSFUSION | | | | | | MEDICINE | | + + + + + + + + | Specimen | + + | Blood - Blood | | (substance) | + + + + + + + | Performing | Address | City/State/Zipcode | Phone Number | | Organization | | | | + + + + + | [facility] | [address] | [place] [address] | | | SERVICES, | [address] | | | | TRANSFUSION MEDICINE | | | | + + + + + CBC (HEMOGRAM) ONLY (03/19/2019 6:21 PM PDT) + + + + + + | Component | Value | Ref Range | Performed | Pathologist | | | | | At | Signature | + + + + + + | WHITE CELL | 8.98 | 3.50 - 10.80 | [facility] | | | COUNT | | K/cu mm | LABORATORY | | | | | | SERVICES, | | | | | | CORE | | + + + + + + | RED CELL | 4.26 (L) | 4.50 - 6.00 | [facility] | | | COUNT | | M/cu mm | LABORATORY | | | | | | SERVICES, | | | | | | CORE | | + + + + + + | HEMOGLOBIN | 13.5 | 13.5 - 17.5 | [facility] | | | | | g/dL | LABORATORY | | | | | | SERVICES, | | | | | | CORE | | + + + + + + | HEMATOCRIT | 38.9 (L) | 41.0 - 53.0 % | [facility] | | | | | | LABORATORY | | | | | | SERVICES, | | | | | | CORE | | + + + + + + | MCV | 91.3 | 80.0 - 100.0 fL | [facility] | | | | | | LABORATORY | | | | | | SERVICES, | | | | | | CORE | | + + + + + + | MCHC | 34.7 | 32.0 - 36.0 | [facility] | | | | | g/dL | LABORATORY | | | | | | SERVICES, | | | | | | CORE | | + + + + + + | RDW SD | 39.2 | 35.1 - 46.3 fL | [facility] | | | | | | LABORATORY | | | | | | SERVICES, | | | | | | CORE | | + + + + + + | PLATELET | 211 | 150 - 400 K/cu | [facility] | | | COUNT | | mm | LABORATORY | | | | | | SERVICES, | | | | | | CORE | | + + + + + + | MPV | 9.9 | 9.7 - 12.3 fL | [facility] | | | | | | LABORATORY | | | | | | SERVICES, | | | | | | CORE | | + + + + + + | NRBC% | 0.0 | 0.0 - 0.3 % | [facility] | | | | | | LABORATORY | | | | | | SERVICES, | | | | | | CORE | | + + + + + + | NRBC# | 0.00 | 0.00 - 0.02 | [facility] | | | | | K/cu mm | LABORATORY | | | | | | SERVICES, | | | | | | CORE | | + + + + + + + + | Specimen | + + | Blood - Blood | | (substance) | + + + + + + + | Performing | Address | City/State/Zipcode | Phone Number | | Organization | | | | + + + + + | [facility] | [address] | [place] [address] | | | SERVICES, CORE | [address] | | | + + + + + COMPLETE METABOLIC SET (NA,K,CL,CO2,BUN,CREAT,GLUC,CA,AST,ALT,BILI TOTAL,ALK PHOS,ALB,PROT TOTAL) (03/19/2019 6:21 PM PDT) + + + + + + | Component | Value | Ref Range | Performed | Pathologist | | | | | At | Signature | + + + + + + | GLUCOSE, | 91 | 70 - 99 mg/dL | [facility] | | | PLASMA | | | LABORATORY | | | (LAB) | | | SERVICES, | | | | | | CORE | | + + + + + + | BUN, PLASMA | 11 | 6 - 20 mg/dL | [facility] | | | (LAB) | | | LABORATORY | | | | | | SERVICES, | | | | | | CORE | | + + + + + + | CREATININE | 0.69 (L) | 0.70 - 1.30 | [facility] | | | PLASMA | | mg/dL | LABORATORY | | | (LAB) | | | SERVICES, | | | | | | CORE | | + + + + + + | EGFR | >60 | >60 mL/min | [facility] | | | - | | | LABORATORY | | | ANGOLAN | | | SERVICES, | | | | | | CORE | | + + + + + + | EGFR NON | >60 | >60 mL/min | [facility] | | | -YOGESH | | | LABORATORY | | | RICAN | | | SERVICES, | | | | | | CORE | | + + + + + + | SODIUM, | 139 | 136 - 145 | [facility] | | | PLASMA | | mmol/L | LABORATORY | | | (LAB) | | | SERVICES, | | | | | | CORE | | + + + + + + | POTASSIUM, | 4.2 | 3.4 - 5.0 | [facility] | | | PLASMA | | mmol/L | LABORATORY | | | (LAB) | | | SERVICES, | | | | | | CORE | | + + + + + + | CHLORIDE, | 107 | 97 - 108 mmol/L | [facility] | | | PLASMA | | | LABORATORY | | | (LAB) | | | SERVICES, | | | | | | CORE | | + + + + + + | TOTAL CO2, | 27 | 21 - 32 mmol/L | [facility] | | | PLASMA | | | LABORATORY | | | (LAB) | | | SERVICES, | | | | | | CORE | | + + + + + + | CALCIUM, | 8.8 | 8.6 - 10.2 | [facility] | | | PLASMA | | mg/dL | LABORATORY | | | (LAB) | | | SERVICES, | | | | | | CORE | | + + + + + + | CALCIUM(ALB | 8.8 | 8.6 - 10.2 | [facility] | | | CORRECTED) | | mg/dL | LABORATORY | | | | | | SERVICES, | | | | | | CORE | | + + + + + + | BILIRUBIN | 0.5 | 0.3 - 1.2 mg/dL | [facility] | | | TOTAL | | | LABORATORY | | | | | | SERVICES, | | | | | | CORE | | + + + + + + | TOTAL | 7.0 | 6.4 - 8.2 g/dL | [facility] | | | PROTEIN, | | | LABORATORY | | | PLASMA | | | SERVICES, | | | (LAB) | | | CORE | | + + + + + + | ALBUMIN, | 4.0 | 3.5 - 4.7 g/dL | [facility] | | | PLASMA | | | LABORATORY | | | (LAB) | | | SERVICES, | | | | | | CORE | | + + + + + + | ALK PHOS | 60 | 53 - 128 U/L | [facility] | | | | | | LABORATORY | | | | | | SERVICES, | | | | | | CORE | | + + + + + + | AST(SGOT) | 16 | <=41 U/L | [facility] | | | | | | LABORATORY | | | | | | SERVICES, | | | | | | CORE | | + + + + + + | ALT (SGPT) | 17 | <=60 U/L | [facility] | | | | | | LABORATORY | | | | | | SERVICES, | | | | | | CORE | | + + + + + + | ANION GAP | 5 | 4 - 11 mmol/L | [facility] | | | | | | LABORATORY | | | | | | SERVICES, | | | | | | CORE | | + + + + + + | ANION | 5 | 4 - 11 mmol/L | [facility] | | | GAP(ALB | | | LABORATORY | | | CORRECTED) | | | SERVICES, | | | | | | CORE | | + + + + + + | POTASSIUM | No Hemo | | [facility] | | | CMNT | | | LABORATORY | | | | | | SERVICES, | | | | | | CORE | | + + + + + + | BILI T CMNT | No Hemo | | [facility] | | | | | | LABORATORY | | | | | | SERVICES, | | | | | | CORE | | + + + + + + | AST CMNT | No Hemo | | [facility] | | | | | | LABORATORY | | | | | | SERVICES, | | | | | | CORE | | + + + + + + + + | Specimen | + + | Blood - Blood | | (substance) | + + + + + | Narrative | Performed At | + + + | GFR is estimated using the MDRD equation recommended by the | [facility] | | National Kidney Disease Education Program. Estimated GFR | LABORATORY | | Interpretive Information: <60 mL/min/1.73 sq m | SERVICES, CORE | | Chronic Kidney Disease <15 mL/min/1.73 sq m | | | Kidney Failure Estimated GFR greater than 60 mL/min/1.73 sq m is of | | | limited clinical value. The MDRD equation is not valid in the | | | following situations: - Patients under 18 years of age - Severe | | | malnutrition or obesity - Vegetarian diet - Rapidly changing kidney | | | function - Amputees, paraplegics, or other muscle-wasting diseses | | + + + + + + + + | Performing | Address | City/State/Zipcode | Phone Number | | Organization | | | | + + + + + | [facility] | [address] | [place] [address] | | | SERVICES, CORE | [address] | | | + + + + + BLOOD BANK HOLD TUBE - DON T PROCESS (03/19/2019 6:21 PM PDT) + + + + + + | Component | Value | Ref Range | Performed | Pathologist | | | | | At | Signature | + + + + + + | SPECIMEN | Sample received with | | [facility] | | | COLLECTED, | adeq label/volume to | | LABORATORY | | | HELD | process | | SERVICES, | | | | | | TRANSFUSION | | | | | | MEDICINE | | + + + + + + + + | Specimen | + + | Blood - Blood | | (substance) | + + + + + + + | Performing | Address | City/State/Zipcode | Phone Number | | Organization | | | | + + + + + | [facility] | [address] | [place] [address] | | | SERVICES, | [address] | | | | TRANSFUSION MEDICINE | | | | + + + + + ETHANOL (ALCOHOL), BLOOD (03/19/2019 6:21 PM PDT) + +-------+ + + + | Component | Value | Ref Range | Performed | Pathologist | | | | | At | Signature | + +-------+ + + + | ETHANOL | <10 | <10 mg/dL | [facility] | | | (ALCOHOL) | | | LABORATORY | | | | | | SERVICES, | | | | | | CORE | | + +-------+ + + + + + | Specimen | + + | Blood - Blood | | (substance) | + + + + + + + | Performing | Address | City/State/Zipcode | Phone Number | | Organization | | | | + + + + + | [facility] | [address] | [place] [address] | | | [place]AN, PENELOPE | [address] | | | + + + + + CONFIRMATORY ABO/RH (03/19/2019 6:21 PM PDT) + + + + + + | Component | Value | Ref Range | Performed | Pathologist | | | | | At | Signature | + + + + + + | ABO Group | O | | [facility] | | | | | | LABORATORY | | | | | | SERVICES, | | | | | | TRANSFUSION | | | | | | MEDICINE | | + + + + + + | Rh Type | Negative | | [facility] | | | | | | LABORATORY | | | | | | SERVICES, | | | | | | TRANSFUSION | | | | | | MEDICINE | | + + + + + + + + | Specimen | + + | Blood - Blood | | (substance) | + + + + + + + | Performing | Address | City/State/Zipcode | Phone Number | | Organization | | | | + + + + + | [facility] | [address] | [place] [address] | | | SERVICES, | [address] | | | | TRANSFUSION MEDICINE | | | | + + + + + MAGNESIUM, PLASMA (03/19/2019 6:21 PM PDT) + +-------+ + + + | Component | Value | Ref Range | Performed | Pathologist | | | | | At | Signature | + +-------+ + + + | MAGNESIUM,P | 2.1 | 1.6 - 2.6 mg/dL | [facility] | | | LASMA | | | LABORATORY | | | | | | SERVICES, | | | | | | CORE | | + +-------+ + + + + + | Specimen | + + | Blood - Blood | | (substance) | + + + + + + + | Performing | Address | City/State/Zipcode | Phone Number | | Organization | | | | + + + + + | [facility] | [address] | [place] [address] | | | SERVICES, CORE | [address] | | | + + + + + documented in this encounter Visit Diagnoses + + | Diagnosis | + + | SAH (subarachnoid hemorrhage) (HCC) - Primary Subarachnoid hemorrhage | + + | Closed fracture of base of skull, unspecified laterality, initial encounter (HCC) | + + | Closed fracture of left side of mandible, unspecified mandibular site, initial | | encounter (HCC) | + + | Seizure disorder (HCC) Unspecified epilepsy without mention of intractable epilepsy | + + | Encounter for monitoring anticonvulsant therapy Encounter for therapeutic drug | | monitoring | + + | Fall from ground level | + + documented in this encounter Administered Medications + +--------+ + +------+------+ | Medication Order | MAR | Action | Dose | Rate | Site | | | Action | Date | | | | + +--------+ + +------+------+ | acetaminophen (TYLENOL) tablet | Given | 03/20/20 | 1,000 mg | | | | 1,000 mg 1,000 mg, oral, EVERY 8 | | 19 4:05 | | | | | HOURS, First dose on 03/19/19 | | PM PDT | | | | | at 2200, Until Discontinued | | | | | | + +--------+ + +------+------+ +-------+ + +---+---+ | Given | 03/20/20 | 1,000 mg | | | | | 19 5:39 | | | | | | AM PDT | | | | +-------+ + +---+---+ | Given | 03/19/20 | 1,000 mg | | | | | 19 9:31 | | | | | | PM PDT | | | | +-------+ + +---+---+ + +---+ | | | + +---+ | bisacodyl (DULCOLAX) | | | suppository 10 mg 10 mg, rectal, | | | DAILY NEEDED, Starting Mon | | | 03/19/19 at 1910, Until Tue | | | 03/20/19 at 2343, 2nd line for no | | | BM in past 2 days or if no | | | response to MIRALAX or if patient | | | unable to tolerate oral | | + +---+ | | | + +---+ + +-------+ +--------+---+---+ | HYDROmorphone (DILAUDID) | Given | 03/20/20 | 0.5 mg | | | | injection 0.5 mg 0.5 mg, | | 19 2:03 | | | | | intravenous, EVERY 2 HOURS | | AM PDT | | | | | NEEDED, Starting Tue03/20/19 at | | | | | | | 0134, Until Tue03/20/19 at 2343, | | | | | | | severe pain | | | | | | + +-------+ +--------+---+---+ +---+---+ | | | +---+---+ + +-------+ +--------+---+---+ | levETIRAcetam (KEPPRA) tablet | Given | 03/19/20 | 500 mg | | | | 500 mg 500 mg, oral, TWICE | | 19 9:31 | | | | | DAILY, First dose on Tue03/19/19 | | PM PDT | | | | | at 2115, Until Discontinued | | | | | | + +-------+ +--------+---+---+ +---+---+ | | | +---+---+ + +-------+ +--------+---+---+ | levETIRAcetam (KEPPRA) tablet | Given | 03/20/20 | 750 mg | | | | 750 mg 750 mg, oral, TWICE | | 19 9:17 | | | | | DAILY, First dose (after last | | AM PDT | | | | | modification) on Tue03/20/19 at | | | | | | | 0900, Until Discontinued | | | | | | + +-------+ +--------+---+---+ +---+---+ | | | +---+---+ + + + +---------+---+ + | nicotine (NICOTROL) 14 mg/24 hr | Applied | 03/20/20 | 1 patch | | Left | | 1 patch 1 patch, transdermal, | Patch | 19 10:51 | | | Shoulder | | DAILY, First dose on Tue03/20/19 | | AM PDT | | | | | at 1215, Until Discontinued | | | | | | + + + +---------+---+ + +---+---+ | | | +---+---+ + +-------+ +------+---+---+ | ondansetron (ZOFRAN) injection | Given | 03/20/20 | 4 mg | | | | 4 mg 4 mg, intravenous, ONCE, 1 | | 19 1:49 | | | | | dose, Tue03/20/19 at 1415 | | PM PDT | | | | + +-------+ +------+---+---+ +---+---+ | | | +---+---+ + +-------+ +------+---+---+ | ondansetron (ZOFRAN) injection | Given | 03/20/20 | 4 mg | | | | 1 dose, Starting Tue03/20/19 at | | 19 3:22 | | | | | 0318, Until Tue03/20/19 at 0322 | | AM PDT | | | | + +-------+ +------+---+---+ +---+---+ | | | +---+---+ + +-------+ +------+---+---+ | oxyCODONE (immediate release) | Given | 03/20/20 | 5 mg | | | | (ROXICODONE) tablet 2.5-5 mg | | 19 11:02 | | | | | 2.5-5 mg, oral, EVERY 3 HOURS | | AM PDT | | | | | NEEDED, Starting Tue03/19/19 at | | | | | | | 1920, Until Tue03/20/19 at 2343, | | | | | | | moderate pain | | | | | | + +-------+ +------+---+---+ +-------+ +--------+---+---+ | Given | 03/20/20 | 2.5 mg | | | | | 19 3:24 | | | | | | AM PDT | | | | +-------+ +--------+---+---+ + +---+ | | | + +---+ | polyethylene glycol (MIRALAX) | | | packet 34 g 34 g, oral, THREE | | | TIMES DAILY NEEDED, Starting | | | 03/19/19 at 1910, Until Tue | | | 03/20/19 at 2343, 1st line - for | | | no BM for 2 days | | + +---+ | | | + +---+ + +-------+ + +---+---+ | senna-docusate (SENOKOT S) | Given | 03/20/20 | 1 tablet | | | | 8.6-50 mg 1 tablet 1 tablet, | | 19 9:17 | | | | | oral, TWICE DAILY, First dose on | | AM PDT | | | | | 03/19/19 at 2100, Until | | | | | | | Discontinued | | | | | | + +-------+ + +---+---+ +---+---+ | | | +---+---+ + +---------+ + +---+---+ | valproate (DEPACON) IV 1,000 mg | New Bag | 03/20/20 | 1,000 mg | | | | 1,000 mg, intravenous, ONCE, | | 19 12:41 | | | | | dose, Tue03/20/19 at 1230 | | PM PDT | | | | + +---------+ + +---+---+ +---+---+ | | | +---+---+ + +-------+ +--------+---+---+ | valproic acid (DEPAKENE) | Given | 03/20/20 | 500 mg | | | | capsule 500 mg 500 mg, oral, | | 19 4:05 | | | | | TWICE DAILY, First dose on Tue | | PM PDT | | | | | 03/20/19 at 1345, Until | | | | | | | Discontinued | | | | | | + +-------+ +--------+---+---+ +---+---+ | | | +---+---+ documented in this encounter
--- OUTSIDE RECORDS SUMMARY | ~2020-03-23 | XMS | Encounter Summary ---
Demographics + + + | Address | [address] | | | [place] [address] | + + + | Home Phone | | + + + | Preferred Language | Unknown | + + + | Marital Status | Single | + + + | Cheondoism Affiliation | NRP | + + + | Race | White | + + + | Ethnic Group | Not or | + + + Author + + + | Author | [facility] | + + + | Organization | [facility] | + + + | Address | Unknown | + + + | Phone | Unavailable | + + + Support + + +---------+ + | Name | Relationship | Address | Phone | + + +---------+ + | Cheri Lafleur | ECON | Unknown | | + + +---------+ + | Marleny Harris | ECON | Unknown | | + + +---------+ + Care Team Providers + +------+ + | Care Shirt Creaser Name | Role | Phone | + +------+ + | No Pcp Per Patient | PCP | Unavailable | + +------+ + Reason for Visit + + + | Reason | Comments | + + + | Scheduling | | + + + Encounter Details +--------+ + + + + | Date | Type | Department | Care Team | Description | +--------+ + + + + | 03/27/ | Telephone | Neurosurgery at | Ulises Easley MD | Scheduling | | 2019 | | [facility] [address] | [address] | | | | | [facility] | [place], [place] | | | | | Health and Healing, | [address] | | | | | [facility] | [phone] | | | | | floor [place], [place] | | | | | | [address] | | | | | | [phone] | | | +--------+ + + + [...] + + documented as of this encounter Functional Status + + + [...] + + documented as of this encounter Plan of Treatment Not on filedocumented as of this encounter Visit Diagnoses Not on filedocumented in this encounter"
--- OUTSIDE RECORDS SUMMARY | ~2020-03-23 | XMS | Encounter Summary ---
Demographics + + + | Address | [address] | | | [place] [address] | + + + | Home Phone | | + + + | Preferred Language | Unknown | + + + | Marital Status | Single | + + + | Uatsdin Affiliation | NRP | + + + | Race | White | + + + | Ethnic Group | Not or | + + + Author + + + | Author | [facility] | + + + | Organization | [facility] | + + + | Address [...] Team Providers + +------+ + | Care Rafter Cutting Machine Operator Name | Role | Phone | + +------+ + | No Pcp Per Patient | PCP | Unavailable | + +------+ + Encounter Details +--------+--------+ + + + | Date | Type | Department | Care Team | Description | +--------+--------+ + + + | 03/19/ | Intake | Transfer Center | | N/A | | 2019 | | [address] | | | | | | [place], | | | | | | [place] [address] | | | +--------+--------+ + + + Social History + +-------+ [...]
--- OUTSIDE RECORDS SUMMARY | ~2020-03-23 | XMS | Encounter Summary ---
Demographics + + + | Address | [address] | | | [place] [address] | + + + | Home Phone | | + + + | Preferred Language | Unknown | + + + | Marital Status | Single | + + + | Synagogue Affiliation | NRP | + + + | Race | White | + + + | Ethnic Group | Not or | + + + Author + + + | Author | [facility] | + + + | Organization | [facility] | + + + | [...] Team Providers + +------+ + | Care Wildlife Policy Professional Name | Role | Phone | + +------+ + | No Pcp Per Patient | PCP | Unavailable | + +------+ + Encounter Details +--------+ + + + + | Date | Type | Department | Care Team | Description | +--------+ + + + + | 03/19/ | Procedure | Diagnostic Imaging | | | | 2019 | Pass | Services at [facility] | | | | | | [address] | | | | | | [address] | | | | | | [facility] | | | | | | [place], [place] | | | | | | [address] | | | | | | [phone] | | | +--------+ + + + [...]
--- OUTSIDE RECORDS SUMMARY | ~2020-03-23 | XMS | Encounter Summary ---
Demographics + + + | Address | [address] | | | [place] [address] | + + + | Home Phone | | + + + | Preferred Language | Unknown | + + + | Marital Status | Single | + + + | Congregational Affiliation | NRP | + + + | Race | White | + + + | Ethnic Group | Not or | + + + Author + + + | Author | [facility] | + + + | Organization | [facility] | + + + | Address [...] Team Providers + +------+ + | Care Release And Technical Records Clerk Name | Role | Phone | + +------+ + PCP | Unavailable | + +------+ + Reason for Visit + + + | Reason | Comments | + + + | SZ - Seizure | | + + + Encounter Details +--------+ + + + + | Date | Type | Department | Care Team | Description | +--------+ + + + + | 09/25/ | Emergency | [facility] | | | | 2014 | | Department [address] | | | | | [address] | | | | | | [facility] | | | | | | [place], [place] | | | | | | [address] | | | | | | [phone] | | | +--------+ + + + [...]
--- OUTSIDE RECORDS SUMMARY | ~2020-03-23 | XMS | Clinical Summary ---
Demographics + + + | Address | [address] | | | [place] [address] | + + + | Home Phone | | + + + | Preferred Language | Unknown | + + + | Marital Status | Single | + + + | Voodoo Affiliation | NRP | + + + | Race | White | + + + | Ethnic Group | Not or | + + + Author + + + | Author | [facility] | + + + | Organization | [facility] | + + + | Address | [...] Team Providers + +------+ + | Care Credit Director Name | Role | Phone | + +------+ + | No Pcp Per Patient | PCP | Unavailable | + +------+ + Source Comments WEN is fully live on both EpicCare Ambulatory and EpicCare InPatient.[facility] Allergies + + + + + + | Active Allergy | Reactions | Severity | Noted | Comments | | | | | Date | | + + + + + + | Tetanus And | Unknown | | 03/19/20 | States it made him | | Diphther. Tox (Pf) | | | 19 | sick | + + + + + + Medications + + + +---------+------+------+-------+ | Medication | Sig | Dispensed | Refills | Star | End | Statu | | | | | | t | Date | s | | | | | | Date | | | + + + +---------+------+------+-------+ | valproic acid 250 | Take 2 capsules by | 120 | 3 | 04/2 | | Activ | | mg oral capsule | mouth two times | capsule | | 3/20 | | e | | | daily. | | | 19 | | | + + + +---------+------+------+-------+ | oxyCODONE | Take 1 tablet by | 15 | 0 | 04/2 | | Activ | | (immediate release) | mouth every six | tablet | | 3/20 | | e | | 5 mg oral tablet | hours as needed for | | | 19 | | | | | breakthrough pain. | | | | | | + + + +---------+------+------+-------+ Active Problems + + + | Problem | Noted Date | + + + | Seizure disorder | 03/20/2019 | + + + | Encounter for monitoring anticonvulsant therapy | 03/20/2019 | + + + | Fall from ground level | 03/20/2019 | + + + | SAH (subarachnoid hemorrhage) | 03/19/2019 | + + + | Closed fracture of base of skull, unspecified laterality, initial | 03/19/2019 | | encounter | | + + + | Closed fracture of left side of mandible, unspecified mandibular | 03/19/2019 | | site, initial encounter | | + + + Social History + +-------+ [...] recent travel history available. | + + Last Filed Vital Signs + + + [...] | | + + + + + Plan of Treatment + + + + + | Health Maintenance | Due Date | Last Done | Comments | + + + + + | Influenza (Flu) | | 01/07/2011, 09/30/2009 | | | vaccination (#1) | 9 | | | + + + + + | Pneumococcal | Aged Out | | No longer eligible | | vaccination | | | based on patient's | | | | | age to complete this | | | | | topic | + + + + + Results Not on filefrom Last 3 Months Insurance + +--------+ +--------+ + +--------+ | Payer | Benefi | Subscriber | Effect | Phone | Address | Type | | | t Plan | ID | shaun | | | | | | / | | Dates | | | | | | Group | | | | | | + +--------+ +--------+ + +--------+ | [place] | OHP | xxxxxxxx | 12/29/19 | [phone] | [address] | [address] | | | PLUS | | 19-Pre | 6 | [address] | id | | | OPEN | | sent | | [place], [place] | | | | CARD | | | | [id number] | | + +--------+ +--------+ + +--------+ + +--------+ +--------+ + + | Guarantor Name | Accoun | Relation to | Date | Phone | Billing Address | | | t Type | Patient | of | | | | | | | | | | + +--------+ +--------+ + + | Jovan Lafleur | Person | Self | [birth year] | [address] | | | al/Fam | | 1995 | [phone] | [place] [address] | | | [place] | | | 2 (Home) | | + +--------+ +--------+ + + Advance Directives + + + + + | Code Status | Date | Date | Comments | | | Activated | Inactivated | | + + + + + | Full Code | 03/19/2019 | 03/20/2019 | | | | 7:11 PM | 11:48 PM | | + + + + +
--- OUTSIDE RECORDS SUMMARY | ~2020-03-23 | XMS | Encounter Summary ---
Demographics + + + | Address | [address] | | | [place] [address] | + + + | Home Phone | | + + + | Preferred Language | Unknown | + + + | Marital Status | Single | + + + | Buddhism Affiliation | NRP | + + + | Race | White | + + + | Ethnic Group | Not or | + + + Author + + + | Author | [facility] | + + + | Organization | [facility] | + + + | Address [...] Team Providers + +------+ + | Care Link Trainer Mechanic Name | Role | Phone | + [...] + + | 03/19/ | Hospital | [address] | Esha Gooden, | | | 2019 - | Encounter | [address] | [address] | | | | | [facility] | [address] | | | 03/20/ | | [facility] [place] | [place], [place] | | | 2019 | | [address] | [address] | | | | | [phone] | [phone] | | | | | | | | | | | | Ren Bose, | | | | | | [address] | | | | | | [address] | | | | | | [place], [place] | | | | | | [address] | | | | | | [phone] | | | | | | | [...] might be different from jo ann johnston. [facility] Discharge Summary Discharging Provider: Clyde Sanches MD [...] associated with the brusing please contact your marketing and outreach coordinator. MEDICATIONS: See medication list for changes. [...] the prescribed narcotic-opioid (e.g. oxycodone, hydrocodone, Vicodin, [place], Percocet, Dilaudid) as needed. However, Vicodin/[place] and Percocet contain acetam inophen in the [...] Narcotic-opioid pain medications (e.g. oxycodone, hydrocodone, Vicodin, [place], Percocet, Di laudid) can be constipating, therefore you should take a stool softener on the same day as s tarting your narcotic pain medicine. Options include: Milk of Magnesia: 2 Tablespoons Twice daily Colace (=Docusate): 1 pill Twice daily While these are some recommendations, any vnyn-kmk-aqnjhag stool softener should work, and generics are fine to use. Increase your fluids, especially your intake of water Increase your activity. Walk frequently. Discharging Provider: Clyde Sanches MD Discharging Surgeon : Adriano Raymond MD [facility] Division of Acute Care Surgery/Critical Care [address] [place] [address] [email or web address] signed by Adriano Raymond MD at 03/21/2019 11:02 AM PDT Associated attestation - Adriano Raymond MD - 03/21/2019 11:02 AM PDTAttending: I saw and examined Mary Hillman ([id number]) with Clyde Sanches MD on 03/20/2019 and agree with the assessment and plan as outlined in this discharge summary. Adriano Raymond MD Automobile Mechanic Supervisor Trauma, Critical Care & Acute Care [...] sent through Care Everywhere.Seizure ([place] h)HEAD INJURY ([place])documented in this encounter Medications at Time of [...] Please contact the Neurosurgery resident on-call pager [phone] with questions or concerns. Fredo Suarez M.D., M.P.H. R2 Resident Physician Neurological Surgery Pager: [phone] signed by Fredo Suarez MD,MPH at 03/20/2019 [...] tonight Clyde Sanches MD (R2) General Surgery [facility] TSICU Team Pager: [phone] Associated attestation - Adriano Raymond MD - 03/21/2019 11:02 AM PDTFormatting of this note m ight be different from the original. I saw and examined Mary Hillman ([id number]) with the ICU team on 03/20/2019. I [...] Active Problem List Diagnosis SAH (subarachnoid hemorrhage) ([facility]) Closed fracture of base of skull, unspecified laterality, initial encounter ([facility]) Closed fracture of left side of mandible, unspecified mandibular site, initial encounte r ([facility]) Seizure disorder ([facility]) Encounter for monitoring anticonvulsant therapy Fall from ground level May transfer to [facility] after 24 hours of stable neurochecks. Continue PT/OT for mobility uriel didier. Will continue monitor adequate pain control and incentive spirometry for pulmonary jovanny iet. it account manager for disposition planning and placement. Adriano Raymond MD Automobile Mechanic Supervisor Division of Trauma and Critical Care [...] Reviewed. Pertinent labs noted above. ASSESSMENT/PLAN: Mary Hillman is a 24yo man w epilepsy who presents after seizure/GLF, found to have small R temporal tSAH and left petrous bone fracture with expected left-sided hearing loss. - Ok tx - F/u MRI read - DVT ppx ok 48 hrs after stable CTH - Anti-plt/anti-coag ok 2 wks after stable CTH NSG will sign off. Amilcar Cross MD Neurosurgery PGY2 [id number] documented in this en counter Plan of [...] Hillman Date of : 1995 Medical | [facility] - | | Record Number: [id number] Date of Test: 03/20/2019 Place of | [facility], | | Service: [facility] [phone] [facility] Department: EEG HRC - | POINT [...] - [place] | | | ,MPH. Mercury Cracking Tester of Neurology, [facility] Epilepsy | | | Center Suggested Modifier: None GC - Resident Present Suggested | | | CPT: 56947 - EEG Routine Awake Only Suggested Dx: R56.9 Unspecified | | | convulsions G93.49 Other encephalopathy G40.89 Other seizures | | | | | + + + + + + + + | Performing | Address | City/State/Zipcode | Phone Number | | Organization | | | | + + + + + | [facility] | [address] | [place], [place] | | | LOCO POINT OF CARE | [address] | [address] | | | TESTS | | | [...] | + + + + + | [facility] | [address] | [place] [address] | | | SERVICES, CORE | ANNABEL [...] | + + + + + | [facility] LABORATORY | [address] | [place] [address] | | | PENELOPE PHELAN | ANNABEL [...] | | | LABORATORY | | | [place] | | | SERVICES, | | | [...] | + + + + + | [facility] | [address] | [place] [address] | | | PENELOPE PHELAN | ANNBAEL ESTRADA | | | + + + [...] | + + + + + | [facility] DEPT OF | [address] | [place], [place] | | | CARDIOLOGY | [address] | [address] | | + + + + + [...] Note | + + | Service Account, Hark Res In Interface - 03/19/2019 7:47 PM [...] | [address] | [place], [place] | | | HUSSEIN ADAN OF YAMIL | [facility] | [address] | | | TESTS | | | [...] | [address] | [place], [place] | | | HUSSEIN ADAN OF [facility] | [facility] | [address] | | | TESTS | | | [...] | + + + + + | [facility] | [address] | [place] [address] | | | SERVICES, CORE | ANNABEL [...] LABORATORY | [address] | [place] [address] | | | SERVICES, CORE | PARK [...] | + + + + + | [facility] | [address] | [place] [address] | | | SERVICES, | [address] [...] [facility] | [address] | [place] [address] | | | SERVICES, | [address] [...] [facility] | [address] | [place] [address] | | | SERVICES, CORE | ANNABEL [...] | | | LABORATORY | | | [place] | | | SERVICES, | | | [...] the MDRD equation recommended by the | [facility] | | National Kidney Disease [...] | + + + + + | [facility] | [address] | [place] [address] | | | SERVICES, CORE | ANNABEL [...] | + + + + + | [facility] | [address] | [place] [address] | | | SERVICES, | [address] [...] [facility] | [address] | [place] [address] | | | TAPAN, PENELOPE | PARK [...] [facility] | [address] | [place] [address] | | | SERVICES, | [address] [...] [facility] | [address] | [place] [address] | | | SERVICES, CORE | PARK [...]
--- OUTSIDE RECORDS SUMMARY | ~2020-03-23 | XMS | Encounter Summary ---
Demographics + + + | Address | [address] | | | [place] [address] | + + + | Home Phone | | + + + | Preferred Language | Unknown | + + + | Marital Status | Single | + + + | Yarsanism Affiliation | NRP | + + + | Race | White | + + + | Ethnic Group | Not or | + + + Author + + + | Author | [facility] | + + + | Organization | [facility] | + + + | Address [...] Team Providers + +------+ + | Care Sill Worker Name | Role | Phone | + [...] | | | | | [address] [place], | | | | | | [place] [address] | | | +--------+--------+ + + + [...]
--- OUTSIDE RECORDS SUMMARY | ~2020-03-23 | XMS | Encounter Summary ---
Demographics + + + | Address | [address] | | | [place] [address] | + + + | Home Phone [...] Author + + + | Author | [facility] | + + + | Organization | [facility] | + + + | Address [...] Team Providers + +------+ + | Care Curator Natural History Museum Name | Role | Phone | + +------+ + | No Pcp Per Patient | PCP | Unavailable | + +------+ + Encounter Details +--------+ + + + + | Date | Type | Department | Care Team | Description | +--------+ + + + + | 03/19/ | Procedure | Diagnostic Imaging | | | | 2019 | Pass | Services at [facility] | | | | | | [address] | | | | | | [address] [place] | | | | | | [facility] | | | | | | [place], [place] | | | | | | [address] | | | | | | [phone] | | | +--------+ + + + [...]
--- OUTSIDE RECORDS SUMMARY | ~2020-03-23 | XMS | Clinical Summary ---
Demographics + + + | Address | [address] | | | [place] [address] | + + + | Home Phone | | + + + | Preferred Language | Unknown | + + + | Marital Status | Single | + + + | Oriental Orthodox Affiliation | NRP | + + + [...] Team Providers + +------+ + | Care Steam Distribution Supervisor Name | Role | Phone | + +------+ + | No Pcp Per Patient | PCP | Unavailable | + +------+ + Source Comments WEN is fully live on both EpicCare Ambulatory and EpicCare InPatient.[facility] Allergies + + + + + + [...] | OHP | xxxxxxxx | 12/29/19 | [phone] | [address] | [address] | | | PLUS | | 19-Pre | 6 | [phone] | id | | | OPEN | | sent | | [place], [place] | | | | CARD | | | | [phone] | | + +--------+ +--------+ + +--------+ [...] Self | [birth year] | [address] | | | al/Fam | | 1995 | [phone] | [place] [address] | | | [place] | | | [...]
--- OUTSIDE RECORDS SUMMARY | ~2020-03-23 | XMS | Encounter Summary ---
Demographics + + + | Address | [address] | | | [place] [address] | + + + | Home Phone | | + + + | Preferred Language | Unknown | + + + | Marital Status | Single | + + + | Gnosticist Affiliation | NRP | + + + | Race | White | + + + | Ethnic Group | Not or | + + + Author + + + | Author | [facility] | + + + | Organization | [facility] | + + + | Address [...] Team Providers + +------+ + | Care Cosmetologist Apprentice Name | Role | Phone | + [...] Hospital | | | | | | [place], [place] | | | | | | [address] | | | | | | [phone] | | | +--------+ + + + [...]
--- OUTSIDE RECORDS SUMMARY | ~2020-03-23 | XMS | Encounter Summary ---
Demographics + + + | Address | [address] | | | [place] [address] | + + + | Home Phone | | + + + | Preferred Language | Unknown | + + + | Marital Status | Single | + + + | Christianity Affiliation | NRP | + + + | Race | White | + + + | Ethnic Group | Not or | + + + Author + + + | Author | [facility] | + + + | Organization | [facility] | + + + | [...] Team Providers + +------+ + | Care Pit Hand Name | Role | Phone | + [...] [address] | [address] | | | | | [facility] | [place], [place] | | | | | Health and Healing, | [address] | | | | | [facility] | [phone] | | | | | floor [place], [place] | | | | | | [address] | | | | | | [phone] | | | +--------+ + + + [...]
--- OUTSIDE RECORDS SUMMARY | 2020-03-23 09:22 | XMS ---
PreManage Notification: MARY HILLMAN Security Resident Physician In Radiology Events No recent Security Events currently on file CRITERIA MET - Group Notification - [facility] - Has Care Guidelines CARE PROVIDERS There are no care providers on record at this time. Diony has no Care Guidelines for this patient. Care History Medical/Surgical 03/20/2019 [facility] WRONG PHONE NUMBER Please update patient phone number when seen. CHW needs to contact patient E.D. VISIT COUNT (12 MO.) 1 [facility]. TOTAL 1 NOTE: Visits indicate total known visits. ED/UCC VISIT TRACKING (12 MO.) 03/23/2020 09:20 [facility] [place] TYPE: Emergency COMPLAINT: - HEEL PAIN/ INJ INPATIENT VISIT TRACKING (12 MO.) No inpatient visits to display in this time frame [email or web address]
[2020-03-23] MEDS ORDERED: CRUTCH1 EACH MISC (11:16)
[2020-03-23] MEDS ORDERED: NORCO 5-325 TA1 EACH PO (11:16)
== END 2020-03-23 11:54 | disposition home or self-care (01) ==
LOC: ED 09:19
DX: S90.31XA Contusion of right foot, initial encounter (principal); F17.200 Nicotine dependence, unspecified, uncomplicated; Z91.030 Bee allergy status; Z88.8 Allergy status to other drugs, medicaments and biological substances; Z88.7 Allergy status to serum and vaccine; W17.89XA Other fall from one level to another, initial encounter
CPT/HCPCS: 73650; 99283-25

== ENCOUNTER 2021-06-20 12:58 | Emergency (ER) | payer OTHER ==
[~2021-06-20] VITALS: Ht 190.5 cm; Wt 83.9 kg
[~2021-06-20 12:58] MED LIST changes: +CRUTCH1 EACH MISC
--- OUTSIDE RECORDS SUMMARY | 2021-06-20 13:06 | XMS ---
PreManage Notification: MARY HILLMAN Security Thermo Processor Events No recent Security Events currently on file CRITERIA MET - Group Notification CARE PROVIDERS There are no care providers on record at this time. Diony has no Care Guidelines for this patient. Care History Medical/Surgical 03/20/2019 [facility] WRONG PHONE NUMBER Please update patient phone number when seen. CHW needs to contact patient E.D. VISIT COUNT (12 MO.) 1 [facility] TOTAL 1 NOTE: Visits indicate total known visits. ED/UCC VISIT TRACKING (12 MO.) 06/20/2021 12:[address] [facility] [place] TYPE: Emergency COMPLAINT: - SKIN PROBLEM/ SWELLING INPATIENT VISIT TRACKING (12 MO.) No inpatient visits to display in this time frame [email or web address]
[2021-06-20] MEDS ORDERED: DOXYCYCLINE HY100 MG PO (15:14)
== END 2021-06-20 16:50 | disposition home or self-care (01) ==
LOC: ED 12:58
DX: L02.01 Cutaneous abscess of face (principal); F17.200 Nicotine dependence, unspecified, uncomplicated; Z88.8 Allergy status to other drugs, medicaments and biological substances; Z91.030 Bee allergy status; Z88.7 Allergy status to serum and vaccine
CPT/HCPCS: 10060; 99283-25

== ENCOUNTER 2021-08-29 08:30 | Emergency (ER) | payer OTHER ==
[~2021-08-29] VITALS: Ht 190.5 cm; Wt 72.4 kg
[~2021-08-29 08:30] MED LIST changes: +DOXYCYCLINE HY100 MG PO
--- OUTSIDE RECORDS SUMMARY | 2021-08-29 08:38 | XMS ---
PreManage Notification: MARY HILLMAN Security Digital Media Producer Events No recent Security Events currently on file CRITERIA MET - Group Notification CARE PROVIDERS There are no care providers on record at this time. Diony has no Care Guidelines for this patient. Care History Medical/Surgical 03/20/2019 [facility] WRONG PHONE NUMBER Please update patient phone number when seen. CHW needs to contact patient E.D. VISIT COUNT (12 MO.) 2 [facility] [place] TOTAL 2 NOTE: Visits indicate total known visits. ED/UCC VISIT TRACKING (12 MO.) 08/29/2021 08:31 [facility] [place] TYPE: Emergency COMPLAINT: - BEE STING 06/20/2021 12:59 [facility] [place] TYPE: Emergency COMPLAINT: - SKIN PROBLEM/ SWELLING DIAGNOSES: - Bee allergy status - Cutaneous abscess of face - Nicotine dependence, unspecified, uncomplicated - Allergy status to other drugs, medicaments and biological substances - Allergy status to serum and vaccine INPATIENT VISIT TRACKING (12 MO.) No inpatient visits to display in this time frame [email or web address]
[2021-08-29] MEDS ORDERED: PREDNISONE20 MG PO (09:03)
== END 2021-08-29 09:11 | disposition home or self-care (01) ==
LOC: ED 08:30
DX: T63.441A Toxic effect of venom of bees, accidental (unintentional), initial encounter (principal); B71.0 Hymenolepiasis; F17.200 Nicotine dependence, unspecified, uncomplicated; Z88.7 Allergy status to serum and vaccine; Z91.030 Bee allergy status
CPT/HCPCS: 99282; J7512

== ENCOUNTER 2022-01-15 19:45 | Emergency (ER) | payer OTHER ==
[~2022-01-15] VITALS: Ht 190.5 cm; Wt 72.1 kg
--- OUTSIDE RECORDS SUMMARY | 2022-01-15 19:52 | XMS ---
PreManage Notification: MARY HILLMAN Security Quality Analyst Events No recent Security Events currently on file CRITERIA MET - Group Notification CARE PROVIDERS There are no care providers on record at this time. Diony has no Care Guidelines for this patient. Care History Medical/Surgical 03/20/2019 [facility] WRONG PHONE NUMBER Please update patient phone number when seen. CHW needs to contact patient [facility]. [facility] MO[facility]: Visits indicate total known visits. ED/UCC VISIT TRACKING (12 MO.) 01/15/2022 19:46 [facility] [place] TYPE: Emergency COMPLAINT: - NOSE INJURY 08/29/2021 08:31 [facility] [place] TYPE: Emergency COMPLAINT: - BEE STI DIAGNOSES: - Bee allergy status - Hymenolepiasis - Allergy status to serum and vaccine - Toxic effect of venom of bees, accidental (unintentional), initial encounter - Toxic effect of venom of wasps, accidental (unintentional), initial encounter - Nicotine dependence, unspecified, uncomplicated 06/20/2021 12:59 [facility] [place] TYPE: Emergency COMPLAINT: - SKIN PROBLEM/ SWELLING DIAGNOSES: - Bee allergy status - Cutaneous abscess of face - Nicotine dependence, unspecified, uncomplicated - Allergy status to other drugs, medicaments and biological substances - Allergy status to serum and vaccine INPATIENT VISIT TRACKING (12 MO.) No inpatient visits to display in this time frame [email or web address]
== END 2022-01-15 22:20 | disposition left against medical advice (07) ==
LOC: ED 19:45
DX: S02.2XXA Fracture of nasal bones, initial encounter for closed fracture (principal); S02.40DA Maxillary fracture, left side, initial encounter for closed fracture; F10.129 Alcohol abuse with intoxication, unspecified; G47.00 Insomnia, unspecified; F17.200 Nicotine dependence, unspecified, uncomplicated; Z91.038 Other insect allergy status; Z88.7 Allergy status to serum and vaccine; X58.XXXA Exposure to other specified factors, initial encounter
CPT/HCPCS: 36415; 70450; 70486; 71045; 72125; 80053; 81001; 85025; 99284-25; G0480

== ENCOUNTER 2022-02-26 14:14 | Emergency (ER) | payer OTHER ==
[~2022-02-26] VITALS: Ht 190.5 cm; Wt 72.1 kg
--- OUTSIDE RECORDS SUMMARY | 2022-02-26 14:22 | XMS ---
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 Elopement at [facility] 01/15/2022 19:46 - Other Details: PATIENT LEFT AMA. CRITERIA MET - Group Notification CARE PROVIDERS There are no care providers on record at this time. Diony has no Care Guidelines for this patient. Care History Medical/Surgical 03/20/2019 [facility] WRONG PHONE NUMBER Please update patient phone number when seen. CHW needs to contact patient E.D. VISIT COUNT (12 MO.) [address] [facility] H. TOTAL 4 NOTE: Visits indicate total known visits. ED/UCC VISIT TRACKING (12 MO.) 02/26/2022 14:16 [facility] [place] TYPE: Emergency COMPLAINT: - L HAND NUMB, L ARM SPASM 01/15/2022 19:46 [facility] [place] TYPE: Emergency COMPLAINT: - NOSE INJURY DIAGNOSES: - Fracture of nasal bones, initial encounter for closed fracture - Unspecified injury of face, initial encounter - Insomnia, unspecified - Other insect allergy status - Nicotine dependence, unspecified, uncomplicated - Allergy status to serum and vaccine - Alcohol abuse with intoxication, unspecified - Maxillary fracture, left side, initial encounter for closed fracture - Exposure to other specified factors, initial encounter 08/29/2021 08:31 [facility] [place] TYPE: Emergency COMPLAINT: - BEE STI DIAGNOSES: - Bee allergy status - Hymenolepiasis - Allergy status to serum and vaccine - Toxic effect of venom of bees, accidental (unintentional), initial encounter - Toxic effect of venom of wasps, accidental (unintentional), initial encounter - Nicotine dependence, unspecified, uncomplicated 06/20/2021 12:[address] [facility] [place] TYPE: Emergency COMPLAINT: - SKIN PROBLEM/ SWELLING DIAGNOSES: - Bee allergy status - Cutaneous abscess of face - Nicotine dependence, unspecified, uncomplicated - Allergy status to other drugs, medicaments and biological substances - Allergy status to serum and vaccine INPATIENT VISIT TRACKING (12 MO.) No inpatient visits to display in this time frame [id number]
[2022-02-26] MEDS ORDERED: KEPPRA500 MG PO (17:38)
== END 2022-02-26 18:03 | disposition home or self-care (01) ==
LOC: ED 14:14
DX: G40.909 Epilepsy, unspecified, not intractable, without status epilepticus (principal); M62.838 Other muscle spasm; G47.00 Insomnia, unspecified; F17.200 Nicotine dependence, unspecified, uncomplicated; Z91.030 Bee allergy status; Z88.7 Allergy status to serum and vaccine
CPT/HCPCS: 70450; 96374; 99284-25; J2060

== ENCOUNTER 2022-02-27 14:54 | Emergency (ER) | payer OTHER ==
[~2022-02-27] VITALS: Ht 190.5 cm; Wt 72.1 kg
--- OUTSIDE RECORDS SUMMARY | 2022-02-27 15:04 | XMS ---
PreManage Notification: MARY HILLMAN Security Customer Engineering Specialist Events 2 event(s) in the past 18 months Most recent security events: Elopement at [facility] 01/15/2022 19:46 Details: PATIENT LEFT AMA. Elopement at [facility] 01/15/2022 19:46 - Other Details: PATIENT LEFT AMA. CRITERIA MET - [facility] - 2 Visits in 30 Days - Group Notification CARE PROVIDERS There are no care providers on record at this time. Diony has no Care Guidelines for this patient. Care History Medical/Surgical 03/20/2019 [facility] WRONG PHONE NUMBER Please update patient phone number when seen. CHW needs to contact patient E.D. VISIT COUNT (12 MO.) 5 [facility]. TOTAL 5 NOTE: Visits indicate total known visits. ED/UCC VISIT TRACKING (12 MO.) 02/27/2022 14:56 [facility] [place] TYPE: Emergency COMPLAINT: - INVOLUNTARY MOVEMENTS/PAIN 02/26/2022 14:16 [facility] [place] TYPE: Emergency [...] Nicotine dependence, unspecified, uncomplicated 06/20/2021 12:59 [facility] [place] [facility] [place] COMPLAINT: - SKIN PROBLEM/ SWELLING DIAGNOSES: - Bee allergy status - Cutaneous abscess of face - Nicotine dependence, unspecified, uncomplicated - Allergy status to other drugs, medicaments and biological substances - Allergy status to serum and vaccine INPATIENT VISIT TRACKING (12 MO.) No inpatient visits to display in this time frame [email or web address]
== END 2022-02-27 17:52 | disposition home or self-care (01) ==
LOC: ED 14:54
DX: M62.838 Other muscle spasm (principal); G47.00 Insomnia, unspecified; F17.200 Nicotine dependence, unspecified, uncomplicated; Z91.030 Bee allergy status; Z88.7 Allergy status to serum and vaccine; Z79.899 Other long term (current) drug therapy
CPT/HCPCS: 99283; A9270-GY

== ENCOUNTER 2022-04-03 05:54 | Emergency (ER) | payer OTHER ==
[~2022-04-03] VITALS: Ht 190.5 cm; Wt 72.2 kg
--- OUTSIDE RECORDS SUMMARY | 2022-04-03 06:02 | XMS ---
PreManage Notification: MARY HILLMAN Security Supervisor Show Operations Events 2 event(s) in the past 18 months Most recent security events: Elopement at [facility] 01/15/2022 19:46 Details: PATIENT LEFT AMA. Elopement at [facility] 01/15/2022 19:46 - Other Details: PATIENT LEFT AMA. CRITERIA MET - Group Notification CARE PROVIDERS There are no care providers on record at this time. Diony has no Care Guidelines for this patient. Care History Medical/Surgical 03/20/2019 [facility] WRONG PHONE NUMBER Please update patient phone number when seen. CHW needs to contact patient E.D. VISIT COUNT (12 MO.) 6 [facility] H. TOTAL 6 NOTE: Visits indicate total known visits. ED/UCC VISIT TRACKING (12 MO.) 04/03/2022 05:[address] [facility] [facility] [place] TYPE: Emergency COMPLAINT: - LEG INJURY 02/27/2022 14:56 [facility] [place] [facility]: Emergency COMPLAINT: - INVOLUNTARY MOVEMENTS/PAIN DIAGNOSES: - Nicotine dependence, unspecified, uncomplicated - Allergy status to serum and vaccine - Other senior care (current) drug therapy - Pain in left shoulder - Insomnia, unspecified - Bee allergy status - Other muscle spasm 02/26/2022 14:16 [facility] [place] TYPE: Emergency COMPLAINT: - L HAND NUMB, L ARM SPASM DIAGNOSES: - Nicotine dependence, unspecified, uncomplicated - Anesthesia of skin - Other muscle spasm - Allergy status to serum and vaccine - Insomnia, unspecified - Bee allergy status - Epilepsy, unspecified, not intractable, without status epilepticus 01/15/2022 19:46 [facility] [place] TYPE: Emergency [...] specified factors, initial encounter 08/29/2021 08:31 [facility] [place] TYPE: Emergency COMPLAINT: - BEE STI DIAGNOSES: - Bee allergy status - Hymenolepiasis - Allergy status to serum and vaccine - Toxic effect of venom of bees, accidental (unintentional), initial encounter - Toxic effect of venom of wasps, accidental (unintentional), initial encounter - Nicotine dependence, unspecified, uncomplicated 06/20/2021 12:59 [facility] [place] TYPE: Emergency COMPLAINT: - SKIN PROBLEM/ SWELLING DIAGNOSES: - Bee allergy status - Cutaneous abscess of face - Nicotine dependence, unspecified, uncomplicated - Allergy status to other drugs, medicaments and biological substances - Allergy status to serum and vaccine INPATIENT VISIT TRACKING ( MO.) No inpatient visits to display in this time frame [id number]
[2022-04-03] MEDS ORDERED: AMOX TR-K CLV1 EAC1 PO (06:52)
[2022-04-03] MEDS ORDERED: HYDROCODON-ACE1 EA10 PO (06:52)
== END 2022-04-03 07:19 | disposition home or self-care (01) ==
LOC: ED 05:54
DX: S80.872A Other superficial bite, left lower leg, initial encounter (principal); G47.00 Insomnia, unspecified; F17.200 Nicotine dependence, unspecified, uncomplicated; Z88.7 Allergy status to serum and vaccine; Z91.030 Bee allergy status; Z79.899 Other long term (current) drug therapy; W54.0XXA Bitten by dog, initial encounter
CPT/HCPCS: 36415; 73590; 80048; 82553; 83605; 85025; 96374; 96375; 99283-25; J1885; J2270

== ENCOUNTER 2022-04-20 08:00 | Emergency (ER) | payer OTHER ==
[~2022-04-20] VITALS: Ht 190.5 cm; Wt 73.3 kg
[~2022-04-20 08:00] MED LIST changes: +AMOX TR-K CLV1 EAC1 PO; +HYDROCODON-ACE1 EA10 PO
--- OUTSIDE RECORDS SUMMARY | 2022-04-20 08:02 | XMS ---
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 Elopement at [facility] 01/15/2022 19:46 - Other Details: PATIENT LEFT AMA. CRITERIA MET - Group Notification - [facility] - 2 Visits in 30 Days CARE PROVIDERS There are no care providers on record at this time. Diony has no Care Guidelines for this patient. Care History Medical/Surgical 03/20/2019 [facility] WRONG PHONE NUMBER Please update patient phone number when seen. CHW needs to contact patient E.D. VISIT COUNT (12 MO.) 7 [facility]. TOTAL 7 NOTE: Visits indicate total known visits. ED/UCC VISIT TRACKING (12 MO.) 04/20/2022 08:00 [facility] [place] TYPE: Emergency COMPLAINT: - SEIZURES 04/03/2022 05:55 [facility] [place] TYPE: Emergency COMPLAINT: - LEG INJURY DIAGNOSES: - Other [facility] (current) drug therapy - Bitten by dog, initial encounter - Bee allergy status - Allergy status to serum and vaccine - Insomnia, unspecified - Other superficial bite, left lower leg, initial encounter - Nicotine dependence, unspecified, uncomplicated 02/27/2022 14:[address] [facility] [place] TYPE: Emergency COMPLAINT: - INVOLUNTARY MOVEMENTS/PAIN DIAGNOSES: - Nicotine dependence, unspecified, uncomplicated - Allergy status to serum and vaccine - Other [facility] (current) drug therapy - Pain in left shoulder - Insomnia, unspecified - Bee allergy status - Other muscle spasm 02/26/2022 14:16 [facility] [place] [facility] TYPE: Emergency COMPLAINT: - L [...] visits to display in this time frame [id number]
== END 2022-04-20 09:11 | disposition home or self-care (01) ==
LOC: ED 08:00
DX: G40.909 Epilepsy, unspecified, not intractable, without status epilepticus (principal); F17.200 Nicotine dependence, unspecified, uncomplicated; Z91.030 Bee allergy status; Z88.7 Allergy status to serum and vaccine; Z79.899 Other long term (current) drug therapy
CPT/HCPCS: 36415; 80177; 99283; A9270; A9270-GY

== ENCOUNTER 2022-07-01 13:59 | Emergency (ER) | payer OTHER ==
[~2022-07-01] VITALS: Ht 190.5 cm; Wt 73.3 kg
--- NOTE | ~2022-07-01 | EKG ---
[facility] [address] [place], [place] [address] Draft EK completed, results pending confirmation PATIENT NAME: MARY HILLMAN LORI Electrocardiogram DATE OF : 89 PHYSICIAN: PRELIMINARY REPORT #: [id number] REPORT IS CONFIDENTIAL AND NOT TO BE RELEASED WITHOUT AUTHORIZATION
== END 2022-07-01 15:32 | disposition home or self-care (01) ==
LOC: ED 13:59
DX: G40.909 Epilepsy, unspecified, not intractable, without status epilepticus (principal); F17.200 Nicotine dependence, unspecified, uncomplicated; Z91.030 Bee allergy status; Z88.7 Allergy status to serum and vaccine; Z79.899 Other long term (current) drug therapy
CPT/HCPCS: 36415; 80053; 83735; 85025; 93005; 93010; 99284-25

== ENCOUNTER 2022-07-13 08:54 | Emergency (ER) | payer OTHER ==
[~2022-07-13] VITALS: Ht 190.5 cm; Wt 73.3 kg
--- OUTSIDE RECORDS SUMMARY | 2022-07-13 09:02 | XMS ---
PreManage Notification: MARY HILLMAN Security Alarm Installation Technician Events 2 event(s) in the past 18 months Most recent security events: Elopement at [facility] 01/15/2022 19:46 Details: PATIENT LEFT AMA. Elopement at [facility] 01/15/2022 19:46 - Other Details: PATIENT LEFT AMA. CRITERIA MET - Group Notification - [facility] - 2 Visits in 30 Days - 6 ED Visits in 6 Months CARE PROVIDERS HARI FUNG Current PHONE: [phone] Diony has no Care Guidelines for this patient. Care History Medical/Surgical 03/20/2019 [facility] WRONG PHONE NUMBER Please update patient phone number when seen. CHW needs to contact patient E.D. VISIT COUNT (12 MO.) 8 [facility] TOTAL 8 NOTE: Visits indicate total known visits. ED/UCC VISIT TRACKING (12 MO.) 07/13/2022 08:[address] [facility] [address] [facility] [place] TYPE: Emergency COMPLAINT: - BEE STING IN MOUTH 07/01/2022 14:00 [facility] [place] TYPE: Emergency COMPLAINT: - SEIZURE DIAGNOSES: - Epilepsy, unspecified, not intractable, without status epilepticus - Bee allergy status - Allergy status to serum and vaccine - Other shelter (current) drug therapy - Nicotine dependence, unspecified, uncomplicated 04/20/2022 08:[address] [facility] [address] [facility] [place] TYPE: Emergency COMPLAINT: - SEIZURES DIAGNOSES: - Other long wall mining machine tender (current) drug therapy - Bee allergy status - Allergy status to serum and vaccine - Unspecified convulsions - Epilepsy, unspecified, not intractable, without status epilepticus - Nicotine dependence, unspecified, uncomplicated 04/03/2022 05:55 [facility] [place] [facility] TYPE: Emergency COMPLAINT: - LEG INJURY DIAGNOSES: - Other superficial bite, left lower leg, initial encounter - Allergy status to serum and vaccine - Bitten by dog, initial encounter - Nicotine dependence, unspecified, uncomplicated - Insomnia, unspecified - Bee allergy status - Other shelter (current) drug therapy 02/27/2022 14:56 [facility] [place] [facility] TYPE: Emergency COMPLAINT: - INVOLUNTARY MOVEMENTS/PAIN DIAGNOSES: - Bee allergy status - Pain in left shoulder - Allergy status to serum and vaccine - Other muscle spasm - Insomnia, unspecified - Other shelter (current) drug therapy - Nicotine dependence, unspecified, uncomplicated 02/26/2022 14:16 [facility] [place] [facility] [place] TYPE: Emergency COMPLAINT: - L HAND NUMB, L ARM SPASM DIAGNOSES: - Bee allergy status - Allergy status to serum and vaccine - Anesthesia of skin - Epilepsy, unspecified, not intractable, without status epilepticus - Insomnia, unspecified - Other muscle spasm - Nicotine dependence, unspecified, uncomplicated 01/15/2022 19:46 [facility] [place] TYPE: Emergency COMPLAINT: - NOSE INJURY DIAGNOSES: - Maxillary fracture, left side, initial encounter for closed fracture - Allergy status to serum and vaccine - Other insect allergy status - Unspecified injury of face, initial encounter - Exposure to other specified factors, initial encounter - Alcohol abuse with intoxication, unspecified - Nicotine dependence, unspecified, uncomplicated - Insomnia, unspecified - Fracture of nasal bones, initial encounter for closed fracture 08/29/2021 08:31 [facility] [place] TYPE: Emergency COMPLAINT: - BEE STI DIAGNOSES: - Nicotine dependence, unspecified, uncomplicated - Toxic effect of venom of bees, accidental (unintentional), initial encounter - Hymenolepiasis - Toxic effect of venom of wasps, accidental (unintentional), initial encounter - Allergy status to serum and vaccine - Bee allergy status INPATIENT VISIT TRACKING (12 MO.) No inpatient visits to display in this time frame [id number]
== END 2022-07-13 11:23 | disposition home or self-care (01) ==
LOC: ED 08:54
DX: T63.441A Toxic effect of venom of bees, accidental (unintentional), initial encounter (principal); F17.200 Nicotine dependence, unspecified, uncomplicated
CPT/HCPCS: 96374; 96375; 99282-25; J1885; J2930; Q0163

== ENCOUNTER 2022-07-13 16:04 | Emergency (ER) | payer OTHER ==
[~2022-07-13] VITALS: Ht 190.5 cm; Wt 73.3 kg
== END 2022-07-13 18:30 | disposition home or self-care (01) ==
LOC: ED 16:04
DX: G40.909 Epilepsy, unspecified, not intractable, without status epilepticus (principal); F17.200 Nicotine dependence, unspecified, uncomplicated; Z91.030 Bee allergy status; Z88.7 Allergy status to serum and vaccine; Z79.899 Other long term (current) drug therapy
CPT/HCPCS: 99284

== ENCOUNTER 2022-07-20 14:43 | Emergency (ER) | payer OTHER ==
[~2022-07-20] VITALS: Ht 190.5 cm; Wt 73.0 kg
== END 2022-07-20 15:34 | disposition home or self-care (01) ==
LOC: ED 14:43
DX: G40.909 Epilepsy, unspecified, not intractable, without status epilepticus (principal); F10.10 Alcohol abuse, uncomplicated; F17.200 Nicotine dependence, unspecified, uncomplicated; Z91.030 Bee allergy status; Z88.7 Allergy status to serum and vaccine; Z79.899 Other long term (current) drug therapy
CPT/HCPCS: 99283

== ENCOUNTER 2022-10-19 00:20 | Emergency (ER) | payer OTHER ==
[~2022-10-19] VITALS: Ht 190.5 cm; Wt 73.5 kg
[~2022-10-19 00:20] MED LIST changes: +PROMETHAZINE HC25 M1 PO
--- OUTSIDE RECORDS SUMMARY | 2022-10-19 00:23 | XMS ---
PreManage Notification: MARY HILLMAN Security Forestry Foreman Events 2 event(s) in the past 18 months Most recent security events: Elopement at [facility] 01/15/2022 19:46 Details: PATIENT LEFT AMA. Elopement at [facility] 01/15/2022 19:46 - Other Details: PATIENT LEFT AMA. CRITERIA MET - 6 ED Visits in 6 Months - Group Notification CARE PROVIDERS HARI FUNG Physician In Store Demonstrator Current PHONE: Unknown Diony has no Care Guidelines for this patient. Care History Medical/Surgical 03/20/2019 [facility] WRONG PHONE NUMBER Please update patient phone number when seen. CHW needs to contact patient E.D. VISIT COUNT (12 MO.) 12 [facility]. TOTAL 12 NOTE: Visits indicate total known visits. ED/UCC VISIT TRACKING (12 MO.) 10/19/2022 00:20 [facility] [place] TYPE: Emergency COMPLAINT: - FACIAL LAC, INTOXICATED 07/26/2022 08:00 [facility] [place] TYPE: Emergency COMPLAINT: - SEIZURE, N/V, FELL HIT HEAD DIAGNOSES: - Allergy status to serum and vaccine - Epilepsy, unspecified, not intractable, without status epilepticus - Nicotine dependence, unspecified, uncomplicated - Vomiting, unspecified - Bee allergy status - Other residential (current) drug therapy 07/20/2022 14:44 [facility] [place] [facility] [place] TYPE: Emergency COMPLAINT: - SEIZURE DIAGNOSES: - Other residential (current) drug therapy - Alcohol abuse, uncomplicated - Allergy status to serum and vaccine - Nicotine dependence, unspecified, uncomplicated - Bee allergy status - Epilepsy, unspecified, not intractable, without status epilepticus 07/14/2022 14:16 [facility] [place] [facility] TYPE: Emergency COMPLAINT: - R SIDE FACIAL SWELLING 07/13/2022 16:05 [facility] [place] [facility] [place] TYPE: Emergency COMPLAINT: - SEIZURE, SOB DIAGNOSES: - Epilepsy, unspecified, not intractable, without status epilepticus - Other termite renewal inspector (current) drug therapy - Nicotine dependence, unspecified, uncomplicated - Bee allergy status - Allergy status to serum and vaccine 07/13/2022 08:54 [facility] [place] TYPE: Emergency COMPLAINT: - BEE STING IN MOUTH DIAGNOSES: - Toxic effect of venom of bees, accidental (unintentional), initial encounter - Nicotine dependence, unspecified, uncomplicated 07/01/2022 14:00 [facility] [place] TYPE: Emergency COMPLAINT: - SEIZURE DIAGNOSES: - Allergy status to serum and vaccine - Other residential (current) drug therapy - Nicotine dependence, unspecified, uncomplicated - Epilepsy, unspecified, not intractable, without status epilepticus - Bee allergy status 04/20/2022 08:00 [facility] [place] TYPE: Emergency COMPLAINT: - SEIZURES DIAGNOSES: - Unspecified convulsions - Epilepsy, unspecified, not intractable, without status epilepticus - Nicotine dependence, unspecified, uncomplicated - Other termite renewal inspector (current) drug therapy - Bee allergy status - Allergy status to serum and vaccine 04/03/2022 05:55 [facility] [place] TYPE: Emergency COMPLAINT: - LEG INJURY DIAGNOSES: - Nicotine dependence, unspecified, uncomplicated - Insomnia, unspecified - Bee allergy status - Other residential (current) drug therapy - Other superficial bite, left lower leg, initial encounter - Allergy status to serum and vaccine - Bitten by dog, initial encounter 02/27/2022 14:56 [facility] [place] TYPE: Emergency COMPLAINT: - INVOLUNTARY MOVEMENTS/PAIN DIAGNOSES: - Other muscle spasm - Insomnia, unspecified - Other termite renewal inspector (current) drug therapy - Nicotine dependence, unspecified, uncomplicated - Bee allergy status - Pain in left shoulder - Allergy status to serum and vaccine 02/26/2022 14:16 [facility] [place] TYPE: Emergency COMPLAINT: - L HAND NUMB, L ARM SPASM DIAGNOSES: - Epilepsy, unspecified, not intractable, without status epilepticus - Insomnia, unspecified - Other muscle spasm - Nicotine dependence, unspecified, uncomplicated - Bee allergy status - Allergy status to serum and vaccine - Anesthesia of skin 01/15/2022 19:46 [facility] [place] TYPE: Emergency COMPLAINT: - NOSE INJURY DIAGNOSES: - Exposure to other specified factors, initial encounter - Alcohol abuse with intoxication, unspecified - Nicotine dependence, unspecified, uncomplicated - Insomnia, unspecified - Fracture of nasal bones, initial encounter for closed fracture - Maxillary fracture, left side, initial encounter for closed fracture - Allergy status to serum and vaccine - Other insect allergy status - Unspecified injury of face, initial encounter INPATIENT VISIT TRACKING (12 MO.) No inpatient visits to display in this time frame [id number]
[2022-10-19] MEDS ORDERED: LEVETIRACETAM750 MG PO (00:48)
[2022-10-19] MEDS ORDERED: VITAMIN B-650 MG PO (00:48)
== END 2022-10-19 02:14 | disposition left against medical advice (07) ==
LOC: ED 00:20
DX: S01.111A Laceration without foreign body of right eyelid and periocular area, initial encounter (principal); G47.00 Insomnia, unspecified; R56.9 Unspecified convulsions; F17.200 Nicotine dependence, unspecified, uncomplicated; Z79.899 Other long term (current) drug therapy; Z88.7 Allergy status to serum and vaccine; W22.09XA Striking against other stationary object, initial encounter; Z53.29 Procedure and treatment not carried out because of patient's decision for other reasons
CPT/HCPCS: 70486

== ENCOUNTER 2023-01-20 09:50 | Emergency (ER) | payer OTHER ==
[~2023-01-20] VITALS: Ht 190.5 cm; Wt 73.6 kg
[~2023-01-20 09:50] MED LIST changes: +LEVETIRACETAM750 MG PO; +VITAMIN B-650 MG PO
--- OUTSIDE RECORDS SUMMARY | 2023-01-20 09:52 | XMS ---
PreManage Notification: MARY HILLMAN Security Pneumatic Tester Events 3 event(s) in the past 18 months Most recent security events: Elopement at [facility] 10/19/2022 14:16 - Patient eloped before treatment completed. - Patient with suicidal and/or homicidal ideations eloped. - Patient eloped with IV in place. Details: Patient left AMA. Elopement at [facility] 01/15/2022 19:46 Details: PATIENT LEFT AMA. Elopement at [facility] 01/15/2022 19:46 - Other Details: PATIENT LEFT AMA. CRITERIA MET - Group Notification CARE PROVIDERS -[place]- Dentist: [facility] PHONE: [phone] HARI FUNG Physician Employee Development Manager Current PHONE: Unknown Diony has no Care Guidelines for this patient. Care History Medical/Surgical 03/20/2019 [facility] WRONG PHONE NUMBER Please update patient phone number when seen. CHW needs to contact patient Terri VISIT COUNT (12 MO.) 13 [facility] TOTAL 13 NOTE: Visits indicate total known visits. ED/UCC VISIT TRACKING (12 MO.) 01/20/2023 09:51 [facility] [place] TYPE: Emergency COMPLAINT: - ANKLE PAIN 10/19/2022 14:16 [facility] [place] TYPE: Emergency COMPLAINT: - FACIAL SWELLING, SEIZURE 10/19/2022 00:20 [facility] [place] TYPE: Emergency COMPLAINT: - FACIAL LAC, INTOXICATED DIAGNOSES: - Laceration without foreign body of right eyelid and periocular area, initial encounter - Striking against other stationary object, initial encounter - Allergy status to serum and vaccine - Other group home (current) drug therapy - Nicotine dependence, unspecified, uncomplicated - Unspecified convulsions - Insomnia, unspecified - Procedure and treatment not carried out because of patient's decision for other reasons - Laceration without foreign body of other part of head, initial encounter 07/26/2022 08:00 [facility] [place] TYPE: Emergency COMPLAINT: - SEIZURE, N/V, FELL HIT HEAD DIAGNOSES: - Other group home (current) drug therapy - Allergy status to serum and vaccine - Epilepsy, unspecified, not intractable, without status epilepticus - Nicotine dependence, unspecified, uncomplicated - Vomiting, unspecified - Bee allergy status 07/20/2022 14:44 [facility] [place] TYPE: Emergency COMPLAINT: - SEIZURE DIAGNOSES: - Epilepsy, unspecified, not intractable, without status epilepticus - Other group home (current) drug therapy - Alcohol abuse, uncomplicated - Allergy status to serum and vaccine - Nicotine dependence, unspecified, uncomplicated - Bee allergy status [facility]14/2022 14:[facility] [place] COMPLAINT: - R SIDE FACIAL SWELLING 07/13/2022 16:05 [facility] [place] COMPLAINT: - SEIZURE, SOB DIAGNOSES: - Allergy status to serum and vaccine - Epilepsy, unspecified, not intractable, without status epilepticus - Other intermodal dispatcher (current) drug therapy - Nicotine dependence, unspecified, uncomplicated - Bee allergy status 07/13/2022 08:[address] [facility] [place] TYPE: Emergency COMPLAINT: - BEE STING IN MOUTH DIAGNOSES: - Nicotine dependence, unspecified, uncomplicated - Toxic effect of venom of bees, accidental (unintentional), initial encounter 07/01/2022 14:00 [facility] [place] [facility] [place] TYPE: Emergency COMPLAINT: - SEIZURE DIAGNOSES: - Bee allergy status - Allergy status to serum and vaccine - Other intermodal dispatcher (current) drug therapy - Nicotine dependence, unspecified, uncomplicated - Epilepsy, unspecified, not intractable, without status epilepticus 04/20/2022 08:00 [facility] [place] [facility] TYPE: Emergency COMPLAINT: - SEIZURES DIAGNOSES: - Allergy status to serum and vaccine - Unspecified convulsions - Epilepsy, unspecified, not intractable, without status epilepticus - Nicotine dependence, unspecified, uncomplicated - Other group home (current) drug therapy - Bee allergy status 04/03/2022 05:55 [facility] [place] [place] TYPE: Emergency COMPLAINT: - LEG INJURY DIAGNOSES: - Bitten by dog, initial encounter - Nicotine dependence, unspecified, uncomplicated - Insomnia, unspecified - Bee allergy status - Other group home (current) drug therapy - Other superficial bite, left lower leg, initial encounter - Allergy status to serum and vaccine 02/27/2022 14:56 [facility] [place] TYPE: Emergency COMPLAINT: - INVOLUNTARY MOVEMENTS/PAIN DIAGNOSES: - Allergy status to serum and vaccine - Other muscle spasm - Insomnia, unspecified - Other intermodal dispatcher (current) drug therapy - Nicotine dependence, unspecified, uncomplicated - Bee allergy status - Pain in left shoulder 02/26/2022 14:16 [facility] [place] TYPE: Emergency COMPLAINT: - L HAND NUMB, L ARM SPASM DIAGNOSES: - Anesthesia of skin - Epilepsy, unspecified, not intractable, without status epilepticus - Insomnia, unspecified - Other muscle spasm - Nicotine dependence, unspecified, uncomplicated - Bee allergy status - Allergy status to serum and vaccine INPATIENT VISIT TRACKING (12 MO.) No inpatient visits to display in this time frame [id number]
[2023-01-20] MEDS ORDERED: CRUTCHES XX (10:51)
== END 2023-01-20 10:59 | disposition home or self-care (01) ==
LOC: ED 09:50
DX: S82.831A Other fracture of upper and lower end of right fibula, initial encounter for closed fracture (principal); F17.200 Nicotine dependence, unspecified, uncomplicated; Z91.030 Bee allergy status; Z88.7 Allergy status to serum and vaccine; Z79.899 Other long term (current) drug therapy; W01.0XXA Fall on same level from slipping, tripping and stumbling without subsequent striking against object, initial encounter
CPT/HCPCS: 73610; 99283-25; A9270

== ENCOUNTER 2023-04-15 19:01 | Emergency (ER) | payer OTHER ==
[~2023-04-15] VITALS: Ht 190.5 cm; Wt 81.8 kg
[~2023-04-15 19:01] MED LIST changes: +CELECOXIB200 MG PO; +CRUTCHES XX; +DEPAKOTE250 MG PO; +HYDROCODON-ACE1 EA11 PO
--- OUTSIDE RECORDS SUMMARY | 2023-04-15 19:05 | XMS ---
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 - Patient with suicidal and/or homicidal ideations eloped. - Patient eloped with IV in place. Details: Patient left AMA. Elopement at [facility] 01/15/2022 19:46 Details: PATIENT LEFT AMA. Elopement at [facility] 01/15/2022 19:46 - Other Details: PATIENT LEFT AMA. CRITERIA MET - Group Notification CARE PROVIDERS -Melany- Dentist: Industrial Property Appraiser [facility] PHONE: [phone] HARI FUNG Physician Jack Frame Tender Current PHONE: Unknown Diony has no Care Guidelines for this patient. Care History Medical/Surgical 03/20/2019 [facility] WRONG PHONE NUMBER Please update patient phone number when seen. CHW needs to contact patient Terri VISIT COUNT (12 MO.) 11 [facility] TOTAL 11 NOTE: Visits indicate total known visits. 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 therapy - Pain in right ankle and joints of right foot 10/19/2022 14:16 [facility] [place] TYPE: Emergency COMPLAINT: - FACIAL SWELLING, SEIZURE 10/19/2022 00:20 [facility] [place] TYPE: Emergency COMPLAINT: - FACIAL LAC, INTOXICATED DIAGNOSES: - Allergy status to serum and vaccine - Insomnia, unspecified - Laceration without foreign body of other part of head, initial encounter - Laceration without foreign body of right eyelid and periocular area, initial encounter - Nicotine dependence, unspecified, uncomplicated - Other metallography teacher (current) drug therapy - Procedure and treatment not carried out because of patient's decision for other reasons - Striking against other stationary object, initial encounter - Unspecified convulsions 07/26/2022 08:00 [facility] [place] TYPE: Emergency COMPLAINT: - SEIZURE, N/V, FELL HIT HEAD DIAGNOSES: - Allergy status to serum and vaccine - Bee allergy status - Epilepsy, unspecified, not intractable, without status epilepticus - Nicotine dependence, unspecified, uncomplicated - Other intermediate (current) drug therapy - Vomiting, unspecified 07/20/2022 14:44 [facility] [place] TYPE: Emergency COMPLAINT: - SEIZURE DIAGNOSES: - Alcohol abuse, uncomplicated - Allergy status to serum and vaccine - Bee allergy status - Epilepsy, unspecified, not intractable, without status epilepticus - Nicotine dependence, unspecified, uncomplicated - Other metallography teacher (current) drug therapy 07/14/2022 14:16 [facility] [place] TYPE: Emergency COMPLAINT: - R SIDE FACIAL SWELLING 07/13/2022 16:05 [facility] [place] TYPE: Emergency COMPLAINT: - SEIZURE, SOB DIAGNOSES: - Allergy status to serum and vaccine - Bee allergy status - Epilepsy, unspecified, not intractable, without status epilepticus - Nicotine dependence, unspecified, uncomplicated - Other intermediate (current) drug therapy 07/13/2022 08:54 [facility] [place] [facility]: [facility] COMPLAINT: - BEE STING IN MOUTH DIAGNOSES: - Nicotine dependence, unspecified, uncomplicated - Toxic effect of venom of bees, accidental (unintentional), initial encounter 07/01/2022 14:00 [facility] [place] TYPE: Emergency COMPLAINT: - SEIZURE DIAGNOSES: - Allergy status to serum and vaccine - Bee allergy status - Epilepsy, unspecified, not intractable, without status epilepticus - Nicotine dependence, unspecified, uncomplicated - Other intermediate (current) drug therapy 04/20/2022 08:00 [facility] [place] TYPE: Emergency COMPLAINT: - SEIZURES DIAGNOSES: - Allergy status to serum and vaccine - Bee allergy status - Epilepsy, unspecified, not intractable, without status epilepticus - Nicotine dependence, unspecified, uncomplicated - Other metallography teacher (current) drug therapy - Unspecified convulsions INPATIENT VISIT TRACKING (12 MO.) No inpatient visits to display in this time frame [id number]
[2023-04-15 20:35] VITALS: BP 115/75
== END 2023-04-15 20:37 | disposition left against medical advice (07) ==
LOC: ED 19:01
DX: R56.9 Unspecified convulsions (principal); F17.200 Nicotine dependence, unspecified, uncomplicated; Z53.29 Procedure and treatment not carried out because of patient's decision for other reasons; Z91.030 Bee allergy status; Z88.7 Allergy status to serum and vaccine; Z79.899 Other long term (current) drug therapy
CPT/HCPCS: 36415; 80053; 80164; 80177; 85025; 96374; 99284-25; G0480; J2060

== ENCOUNTER 2023-07-18 08:24 | Emergency (ER) | payer OTHER ==
[~2023-07-18] VITALS: Ht 190.5 cm; Wt 75.4 kg
--- OUTSIDE RECORDS SUMMARY | ~2023-07-18 | XMS | Continuity of Care Document ---
Demographics + + + | Address | [address] | | | [place] [address] | + + + | Preferred Language | Unknown | + + + | Marital Status | Never | + + + | Caodaism Affiliation | Unknown | + + + | Race | White | + + + | Ethnic Group | Not or | + + + Author + + + | Author | [facility] | + + + | Organization | [facility] | + + + | Address | [address] | | | [place] [address] | + + + | Phone | | + + + Care Team Providers + + + + | Care Inspector Publications Name | Role | Phone | + + + + Unavailable | Unavailable | + + + + Unavailable | Unavailable | + + + + Unavailable | Unavailable | + + + + Unavailable | Unavailable | + + + + Unavailable | Unavailable | + + + + Allergies and Intolerances + + + + + + | date | description | facility | reaction | severity | + + + + + + | (no date) | TETANUS AND | [facility] | (no reaction) | (no severity) | | | DIPHTHER. TOX | [facility] [place] | | | | | (PF) [facility] | [facility] | | | + + + + + + | (no date) | Mild | [facility] | (no reaction) | (no severity) | | [facility] | | | + + + + + + | (no date) | Wasp venom | [facility] | (no reaction) | (no severity) | | | [facility] | | | + + + + + + | (no date) | Unknown | [facility] | (no reaction) | (no severity) | | | | [facility] [place] | | | | | | [facility] | [facility] | | | [facility] | | | + + + + + + | (no date) | Penicillin | [facility] | (no reaction) | (no severity) | | | [facility] | | | + + + + + + | (no date) | Penicillin | [facility] | (no reaction) | (no severity) | | | [facility] | | | + + + + + + | (no date) | Penicillins | [facility] | (no reaction) | (no severity) | + + + + + + | (no date) | Insect | [facility] | (no reaction) | (no severity) | | | Extracts | | | | + + + + + + | (no date) | tetanus and | [facility] | (no reaction) | (no severity) | | | diphtheria | | | | | | toxoids | | | | + + + + + + | (no date) | venom-wasp | [facility] | (no reaction) | (no severity) | + + + + + + | (no date) | influenza | [facility] | (no reaction) | (no severity) | | | virus vaccine | | | | | | qs [id number] | | | | | | (36 mos, up) | | | | + + + + + + | (no date) | Penicillin | [facility] | (no reaction) | (no severity) | | | | [facility] | | | + + + + + + | (no date) | TETANUS AND | [facility] | (no reaction) | (no severity) | | | DIPHTHER. TOX | [facility] | | | | | (PF) | Hospital | | | + + + + + + | (no date) | Penicillin | [facility] | (no reaction) | (no severity) | | | | [facility] | | | + + + + + + | (no date) | Wasp venom | [facility] | (no reaction) | (no severity) | | | | [facility] | | | + + + + + + Encounters No information. Functional Status No information. Immunizations + + + + | date | description | facility | + + + + | 2015-12-29 00:00 | DTaP | [facility] | + + + + | 2015-12-29 00:00 | DTaP | [facility] | + + + + Medications + + + + | date | description | facility | + + + + | 2022-07-26 00:00 | ondansetron (as | [facility] | | | ondansetron hcl) 4 mg | [facility] | | | disintegrating oral tablet | | + + + + | 2019-03-20 00:00 | oxycodone hcl 5 mg oral | [facility] | | | tablet | [facility] | + + + + | 2016-05-01 00:00 | DIPHENHYDRAMINE HCL | [facility] | + + + + | 2016-05-01 00:00 | DIPHENHYDRAMINE HCL | [facility] | + + + + | 2023-02-11 00:00 | DIVALPROEX SODIUM | [facility] | + + + + | 2023-04-15 00:00 | DIVALPROEX SODIUM | [facility] | + + + + | 2023-06-20 00:00 | DIVALPROEX SODIUM | [facility] | + + + + | 2019-03-20 00:00 | vpa 250 mg oral capsule | [facility] | | | | [facility] | + + + + | 2021-06-20 00:00 | DOXYCYCLINE HYCLATE | [facility] | + + + + | 2021-06-20 00:00 | DOXYCYCLINE HYCLATE | [facility] | + + + + | 2014-04-21 00:00 | NAPROXEN | [facility] | + + + + | 2014-04-21 00:00 | NAPROXEN | [facility] | + + + + | 2023-02-11 00:00 | CELECOXIB | [facility] | + + + + | 2023-02-11 00:00 | CELECOXIB | [facility] | + + + + | 2022-05-19 00:00 | [id number] 200 actuat | [facility] | | | albuterol 0.09 mg/actuat | [facility] | | | metered dose inhaler | | + + + + | 2015-12-01 00:00 | LEVETIRACETAM | [facility] | + + + + | 2015-12-01 00:00 | LEVETIRACETAM | [facility] | + + + + | 2015-12-22 00:00 | LEVETIRACETAM | [facility] | + + + + | 2015-12-22 00:00 | LEVETIRACETAM | [facility] | + + + + | 2022-02-26 00:00 | LEVETIRACETAM | [facility] | + + + + | 2022-02-26 00:00 | LEVETIRACETAM | [facility] | + + + + | 2022-05-19 00:00 | levetiracetam 750 mg oral | [facility] | | | tablet [keppra] | [facility] | + + + + | 2014-04-21 00:00 | AMOXICILLIN | [facility] | + + + + | 2014-04-21 00:00 | AMOXICILLIN | [facility] | + + + + | 2015-05-25 00:00 | AMOXICILLIN | [facility] | + + + + | 2015-05-25 00:00 | AMOXICILLIN | [facility] | + + + + | 2022-05-19 00:00 | levetiracetam 750 mg oral | [facility] | | | tablet | [facility] | + + + + | 2016-05-01 00:00 | predniSONE | [facility] | + + + + | 2016-05-01 00:00 | predniSONE | [facility] | + + + + | 2021-08-29 00:00 | predniSONE | [facility] | + + + + | 2021-08-29 00:00 | predniSONE | [facility] | + + + + | 2022-08-09 00:00 | levetiracetam 1000 mg oral | [facility] | | | tablet | [facility] | + + + + | 2022-04-03 00:00 | AMOXICILLIN/POTASSIUM CLAV | [facility] | | | | | + + + + | 2022-04-03 00:00 | AMOXICILLIN/POTASSIUM CLAV | [facility] | | | | | + + + + | 2015-09-25 00:00 | LEVETIRACETAM | [facility] | + + + + | 2015-09-25 00:00 | LEVETIRACETAM | [facility] | + + + + | 2022-10-19 00:00 | PYRIDOXINE HCL | [facility] | + + + + | 2022-08-09 00:00 | pyridoxine 50 mg oral | [facility] | | | tablet | [facility] | + + + + | 2022-05-19 00:00 | [id number] 200 actuat | [facility] | | | albuterol 0.09 mg/actuat | [facility] | | | metered dose inhaler | | | | [proair] | | + + + + | 2014-04-21 00:00 | TRAMADOL HCL | [facility] | + + + + | 2014-04-21 00:00 | TRAMADOL HCL | [facility] | + + + + | 2015-05-25 00:00 | TRAMADOL HCL | [facility] | + + + + | 2015-05-25 00:00 | TRAMADOL HCL | [facility] | + + + + | 2023-06-20 00:00 | LEVETIRACETAM | [facility] | + + + + | 2016-08-23 00:00 | PHENYTOIN SODIUM EXTENDED | [facility] | + + + + | 2016-08-23 00:00 | PHENYTOIN SODIUM EXTENDED | [facility] | + + + + | 2022-07-05 00:00 | TRAZODONE HCL | [facility] | + + + + | 2022-07-20 00:00 | TRAZODONE HCL | [facility] | + + + + | 2022-07-21 00:00 | TRAZODONE HCL | [facility] | + + + + | 2022-07-22 00:00 | TRAZODONE HCL | [facility] | + + + + | 2022-07-26 00:00 | TRAZODONE HCL | [facility] | + + + + | 2022-10-19 00:00 | TRAZODONE HCL | [facility] | + + + + | 2023-01-20 00:00 | TRAZODONE HCL | [facility] | + + + + | 2023-02-11 00:00 | TRAZODONE HCL | [facility] | + + + + | 2023-04-15 00:00 | TRAZODONE HCL | [facility] | + + + + | 2023-06-20 00:00 | TRAZODONE HCL | [facility] | + + + + | 2015-12-01 00:00 | TRAZODONE HCL | [facility] | + + + + | 2015-12-01 00:00 | TRAZODONE HCL | [facility] | + + + + | 2022-04-03 00:00 | HYDROCODONE | [facility] | | | BIT/ACETAMINOPHEN | | + + + + | 2022-04-03 00:00 | HYDROCODONE | [facility] | | | BIT/ACETAMINOPHEN | | + + + + | 2020-03-23 00:00 | HYDROCODONE | [facility] | | | BIT/ACETAMINOPHEN | | + + + + | 2020-03-23 00:00 | HYDROCODONE | [facility] | | | BIT/ACETAMINOPHEN | | + + + + | 2023-02-11 00:00 | HYDROCODONE | [facility] | | | BIT/ACETAMINOPHEN | | + + + + | 2022-07-26 00:00 | PROMETHAZINE HCL | [facility] | + + + + Problems + + + + | date | description | facility | + + + + | 2014-08-13 00:00 | Laceration of right index | [facility] | | | finger without foreign body | | | | without damage to nail | | + + + + | 2014-08-13 00:00 | Laceration of right index | [facility] | | | finger without foreign body | | | | without damage to nail | | + + + + | 2015-05-25 00:00 | Acute pharyngitis | [facility] | + + + + | 2015-05-25 00:00 | Acute pharyngitis | [facility] | + + + + | 2015-06-23 00:00 | Convulsions | [facility] | + + + + | 2015-06-23 00:00 | Convulsions | [facility] | + + + + | 2015-09-25 00:00 | Seizure | [facility] | + + + + | 2015-09-25 00:00 | Seizure | [facility] | + + + + | 2015-12-01 00:00 | Anxiety | [facility] | + + + + | 2015-12-01 00:00 | Anxiety | [facility] | + + + + | 2015-12-01 00:00 | Seizure disorder | [facility] | + + + + | 2015-12-01 00:00 | Seizure disorder | [facility] | + + + + | 2015-12-29 00:00 | Laceration of toe | [facility] | + + + + | 2015-12-29 00:00 | Laceration of toe | [facility] | + + + + | 2015-12-29 00:00 | Encounter for wound | [facility] | | | re-check | | + + + + | 2015-12-29 00:00 | Encounter for wound | [facility] | | | re-check | | + + + + | 2016-05-01 00:00 | Allergic dermatitis | [facility] | + + + + | 2016-05-01 00:00 | Allergic dermatitis | [facility] | + + + + | 2016-05-25 00:00 | Acute gastroenteritis | [facility] | + + + + | 2016-05-25 00:00 | Acute gastroenteritis | [facility] | + + + + | 2017-03-12 00:00 | Encounter for medical | [facility] | | | screening examination | | + + + + | 2017-03-12 00:00 | Encounter for medical | [facility] | | | screening examination | | + + + + | 2017-05-29 00:00 | Vomiting | [facility] | + + + + | 2017-05-29 00:00 | Vomiting | [facility] | + + + + | 2018-07-12 00:00 | Alcohol abuse | [facility] | + + + + | 2018-07-12 00:00 | Alcohol abuse | [facility] | + + + + | 2018-07-12 00:00 | Urticaria | [facility] | + + + + | 2018-07-12 00:00 | Urticaria | [facility] | + + + + | 2019-03-19 00:00 | closed fracture of left | [facility] | | | mandible (disorder) | [facility] | + + + + | 2019-03-19 00:00 | closed fracture of base of | [facility] | | | skull (disorder) | [facility] | + + + + | 2019-03-19 00:00 | hemorrhage into | [facility] | | | subarachnoid space of | [facility] | | | neuraxis (disorder) | | + + + + | 2019-03-19 00:00 | [facility] (subarachnoid | [facility] | | | hemorrhage) | [facility] | + + + + | 2019-03-19 00:00 | Closed fracture of base of | [facility] | | | skull with subarachnoid | | | | hemorrhage | | + + + + | 2019-03-19 00:00 | Closed fracture of base of | [facility] | | | skull with subarachnoid | | | | hemorrhage | | + + + + | 2019-03-19 00:00 | Closed fracture of base of | [facility] | | | skull, unspecified | [facility] | | | laterality, initial | | | | encounter | | + + + + | 2019-03-19 00:00 | Closed fracture of left | [facility] | | | side of mandible, | [facility] | | | unspecified mandibular | | | | site, initial encounter | | + + + + | 2019-03-20 00:00 | seizure disorder | [facility] | | | (disorder) | [facility] | + + + + | 2019-03-20 00:00 | drug therapy observations | [facility] | | | | [facility] | + + + + | 2019-03-20 00:00 | Seizure disorder | [facility] | | | | [facility] | + + + + | 2019-03-20 00:00 | Fall from ground level | [facility] | | | | [facility] | + + + + | 2019-03-20 00:00 | Encounter for monitoring | [facility] | | | anticonvulsant therapy | [facility] | + + + + | 2022-01-15 00:00 | Acute alcoholic | [facility] | | | intoxication | | + + + + | 2022-01-15 00:00 | Acute alcoholic | [facility] | | | intoxication | | + + + + | 2022-01-15 00:00 | Closed displaced fracture | [facility] | | | of nasal bone | | + + + + | 2022-01-15 00:00 | Closed displaced fracture | [facility] | | | of nasal bone | | + + + + | 2022-01-15 00:00 | Fracture of left side of | [facility] | | | maxilla | | + + + + | 2022-01-15 00:00 | Fracture of left side of | [facility] | | | maxilla | | + + + + | 2022-02-27 00:00 | Muscle spasm of left | [facility] | | | shoulder area | | + + + + | 2022-02-27 00:00 | Muscle spasm of left | [facility] | | | shoulder area | | + + + + | 2022-04-03 00:00 | Bite by animal | [facility] | + + + + | 2022-04-03 00:00 | Bite by animal | [facility] | + + + + | 2022-04-20 00:00 | Epilepsy | [facility] | + + + + | 2022-04-20 00:00 | Epilepsy | [facility] | + + + + | 2022-07-01 00:00 | Recurrent seizures | [facility] | + + + + | 2022-07-01 00:00 | Recurrent seizures | [facility] | + + + + | 2022-07-14 00:00 | Patient left without being | [facility] | | | seen | | + + + + | 2022-07-14 00:00 | Patient left without being | [facility] | | | seen | | + + + + | 2022-08-09 13:01:37 | Alcohol dependence, | [facility] | | | uncomplicated | [facility] | + + + + | 2022-08-09 13:01:37 | Nightmare disorder | [facility] | | | | [facility] | + + + + | 2022-08-09 13:01:37 | 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 with | | | | seizures of localized | | | | onset, not intractable, | | | | without status epilepticus | | + + + + | 2022-09-08 13:48:18 | Alcohol dependence, | [facility] | | | uncomplicated | [facility] | + + + + | 2022-09-08 13:48:18 | Nightmare disorder | [facility] | | | | [facility] | + + + + | 2022-09-08 13:48:18 | 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 with | | | | seizures of localized | | | | onset, not intractable, | | | | without status epilepticus | | + + + + | 2022-09-08 13:48:18 | Other longterm (current) | [facility] | | | drug therapy | [facility] | + + + + | 2022-10-19 00:00 | Facial laceration | [facility] | + + + + | 2022-10-19 00:00 | Facial laceration | [facility] | + + + + | 2022-10-27 13:33:55 | 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 with | | | | seizures of localized | | | | onset, not intractable, | | | | without status epilepticus | | + + + + | 2022-10-27 13:33:55 | 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) | [facility] | | | drug therapy | [facility] | + + + + | 2022-12-08 13:44:20 | 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 with | | | | seizures of localized | | | | onset, not intractable, | | | | without status epilepticus | | + + + + | 2022-12-08 13:44:20 | Other longterm (current) | [facility] | | | drug therapy | [facility] | + + + + | 2023-01-12 13:45:49 | 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 with | | | | seizures of localized | | | | onset, not intractable, | | | | without status epilepticus | | + + + + | 2023-01-20 00:00 | Closed fracture of distal | [facility] | | | end of fibula | | + + + + | 2023-01-20 00:00 | Closed fracture of distal | [facility] | | | end of fibula | | + + + + | 2023-01-20 09:51 | NICOTINE DEPENDENCE, | [facility] | | | UNSPECIFIED, UNCOMPLICATED | | + + + + | 2023-01-20 09:51 | PAIN IN RIGHT ANKLE AND | [facility] | | | JOINTS OF RIGHT FOOT | | + + + + | 2023-01-20 09:51 | OTH FRACTURE OF UPPER AND | [facility] | | | LOWER END OF RIGHT FIBUL | | + + + + | 2023-01-20 09:51 | FALL SAME LEV FROM | [facility] | | | SLIP/TRIP W/O STRIKE | | | | AGAINST OB | | + + + + | 2023-01-20 09:51 | 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 (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) | [facility] | | | DRUG THERAPY | | + + + + | 2023-01-20 09:51 | ALLERGY STATUS TO SERUM | [facility] | | | AND VACCINE STATUS | | + + + + | 2023-01-20 09:51 | BEE ALLERGY STATUS | [facility] | + + + + | 2023-02-01 09:43 | OTH FRACTURE OF RIGHT | [facility] | | | LOWER LEG, INIT FOR CLOS FX | | | | | | + + + + | 2023-02-11 06:35 | EPILEPSY, UNSP, NOT | [facility] | | | INTRACTABLE, WITHOUT STATUS | | | | EP | | + + + + | 2023-02-11 06:35 | DISP FX OF LATERAL | [facility] | | | MALLEOLUS OF RIGHT FIBULA, | | | | INIT | | + + + + | 2023-02-11 06:35 | OTH FRACTURE OF RIGHT | [facility] | | | LOWER LEG, INIT FO | | + + + + | 2023-04-15 00:00 | Left against medical | [facility] | | | advice | | + + + + | 2023-04-15 19:02 | NICOTINE DEPENDENCE, | [facility] | | | UNSPECIFIED, UNCOMPLICATED | | + + + + | 2023-04-15 19:02 | UNSPECIFIED CONVULSIONS | [facility] | + + + + | 2023-04-15 19:02 | PROC/TRTMT NOT CRD OUT BEC | [facility] | | | PT DECISION FOR OTH ELOISA | | + + + + | 2023-04-15 19:02 | 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 (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) | [facility] | | | DRUG THERAPY | | + + + + | 2023-04-15 19:02 | ALLERGY STATUS TO SERUM | [facility] | | | AND VACCINE STATUS | | + + + + | 2023-04-15 19:02 | BEE ALLERGY STATUS | [facility] | + + + + | 2023-04-20 14:59:13 | 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 with | | | | seizures of localized | | | | onset, not intractable, | | | | without status epilepticus | | + + + + | 2023-04-20 14:59:13 | Other longterm (current) | [facility] | | | drug therapy | [facility] | + + + + | 2023-06-20 16:23 | NICOTINE DEPENDENCE, | [facility] | | | UNSPECIFIED, UNCOMPLICATED | | + + + + | 2023-06-20 16:23 | EPILEPSY, UNSP, NOT | [facility] | | | INTRACTABLE, WITHOUT STATUS | | | | EP | | + + + + | 2023-06-20 16:23 | UNSPECIFIED CONVULSIONS | [facility] | + + + + | 2023-06-20 16:23 | OTHER CARE HOME (CURRENT) | [facility] | | | DRUG THERAPY | | + + + + | 2023-06-20 16:23 | ALLERGY STATUS TO | [facility] | | | PENICILLIN | | + + + + | 2023-06-20 16:23 | ALLERGY STATUS TO SERUM | [facility] | | | AND VACCINE STATUS | | + + + + | 2023-06-20 16:23 | BEE ALLERGY STATUS | [facility] | + + + + | 2023-06-21 12:19 | ALCOHOL ABUSE WITH | [facility] | | | INTOXICATION, UNSPECIFIED | | + + + + | 2023-06-21 12:19 | NICOTINE DEPENDENCE, | [facility] | | | UNSPECIFIED, UNCOMPLICATED | | + + + + | 2023-06-21 12:19 | EPILEPSY, UNSP, NOT | [facility] | | | INTRACTABLE, WITHOUT STATUS | | | | EP | | + + + + | 2023-06-21 12:19 | UNSPECIFIED CONVULSIONS | [facility] | + + + + | 2023-06-21 12:19 | 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 Results/Labs +--------+--------+ +---------+--------+---------+ | test | date | facility | value | unit | notes | +--------+--------+ +---------+--------+---------+ + + | Result panel 1 | + + + + + +-------+ + + | | 2022-01-15 | [facility] | 410 | (missing) | (missing) | | (unavailable | 19:54 | [facility] | | | | + + + +-------+ + + + + | Result panel 2 | + + + + + + + + + | | 2022-01-15 | [facility] | YELLOW | (missing) | (missing) | | (unavailable | 20:50 | [facility] | | | | + + + + + + + + + | Result panel 3 | + + + + + +---------+ + + | | 2022-01-15 | [facility] | CLEAR | (missing) | (missing) | | (unavailable | 20:50 | [facility] | | | | + + + +---------+ + + + + | Result panel 4 | + + + + + + + + + | | 2022-01-15 | [facility] | NEGATIVE | (missing) | (missing) | | (unavailable | 20:50 | [facility] | | | | + + + + + + + + + | Result panel 5 | + + + + + + + + + | | 2022-01-15 | [facility] | NEGATIVE | (missing) | (missing) | | (unavailable | 20:50 | [facility] | | | | + + + + + + + + + | Result panel 6 | + + + + + + + + + | | 2022-01-15 | [facility] | NEGATIVE | (missing) | (missing) | | (unavailable | 20:50 | [facility] | | | | + + + + + + + + + | Result panel 7 | + + + + + + + + + | | 2022-01-15 | [facility] | <=1.005 | (missing) | (missing) | | (unavailable | 20:50 | [facility] | | | | + + + + + + + + + | Result panel 8 | + + + + + + + + + | | 2022-01-15 | [facility] | TRACE-I | (missing) | (missing) | | (unavailable | 20:50 | [facility] | | | | + + + + + + + + + | Result panel 9 | + + + + + +-------+ + + | | 2022-01-15 | [facility] | 6.0 | (missing) | (missing) | | (unavailable | 20:50 | [facility] | | | | + + + +-------+ + + + + | Result panel 10 | + + + + + + + + + | | 2022-01-15 | [facility] | NEGATIVE | (missing) | (missing) | | (unavailable | 20:50 | [facility] | | | | + + + + + + + + + | Result panel 11 | + + + + + + + + + | | 2022-01-15 | [facility] | Normal | (missing) | (missing) | | (unavailable | 20:50 | [facility] | | | | + + + + + + + + + | Result panel 12 | + + + + + + + + + | | 2022-01-15 | [facility] | NEGATIVE | (missing) | (missing) | | (unavailable | 20:50 | [facility] | | | | + + + + + + + + + | Result panel 13 | + + + + + + + + + | | 2022-01-15 | [facility] | NEGATIVE | (missing) | (missing) | | (unavailable | 20:50 | [facility] | | | | + + + + + + + + + | Result panel 14 | + + + + + +------+ + + | | 2022-01-15 | [facility] | No | (missing) | (missing) | | (unavailable | 20:50 | [facility] | | | | + + + +------+ + + + + | Result panel 15 | + + + + + + + + + | | 2022-01-15 | [facility] | CLEAN CATCH | (missing) | (missing) | | (unavailable | 20:50 | [facility] | | | | + + + + + + + + + | Result panel 16 | + + + + + + + + + | | 2022-01-15 | [facility] | POSITIVE | (missing) | (missing) | | (unavailable | 20:50 | [facility] | | [facility] | | | | + + + + + + + + + | Result panel 17 | + + + + + + + + + | | 2022-01-15 | [facility] | NEGATIVE | (missing) | (missing) | | (unavailable | 20:50 | [facility] | | | | + + + + + + + + + | Result panel 18 | + + + + + + + + + | | 2022-01-15 | [facility] | NEGATIVE | (missing) | (missing) | | (unavailable | 20:50 | [facility] | | | | + + + + + + + + + | Result panel 19 | + + + + + + + + + | | 2022-01-15 | [facility] | NEGATIVE | (missing) | (missing) | | (unavailable | 20:50 | [facility] | | | | + + + + + + + + + | Result panel 20 | + + + + + + + + + | | 2022-01-15 | [facility] | NEGATIVE | (missing) | (missing) | | (unavailable | 20:50 | [facility] | | | | + + + + + + + + + | Result panel 21 | + + + + + + + + + | | 2022-01-15 | [facility] | NEGATIVE | (missing) | (missing) | | (unavailable | 20:50 | [facility] | | | | + + + + + + + + + | Result panel 22 | + + + + + + + + + | | 2022-01-15 | [facility] | NEGATIVE | (missing) | (missing) | | (unavailable | 20:50 | [facility] | | | | + + + + + + + + + | Result panel 23 | + + + + + + + + + | | 2022-01-15 | [facility] | NEGATIVE | (missing) | (missing) | | (unavailable | 20:50 | [facility] | | | | + + + + + + + + + | Result panel 24 | + + + + + + + + + | | 2022-01-15 | [facility] | NEGATIVE | (missing) | (missing) | | (unavailable | 20:50 | [facility] | | | | + + + + + + + + + | Result panel 25 | + + + + + + + + + | | 2022-01-15 | [facility] | NEGATIVE | (missing) | (missing) | | (unavailable | 20:50 | [facility] | | | | + + + + + + + + + | Result panel 26 | + + + + + + + + + | | 2022-01-15 | [facility] | NEGATIVE | (missing) | (missing) | | (unavailable | 20:50 | [facility] | | | | + + + + + + + + + | Result panel 27 | + + + + + + + + + | | 2022-01-15 | [facility] | NEGATIVE | (missing) | (missing) | | (unavailable | 20:50 | [facility] | | | | + + + + + + + + + | Result panel 28 | + + + + + + + + + | | 2022-01-15 | [facility] | NEGATIVE | (missing) | (missing) | | (unavailable | 20:50 | [facility] | | | | + + + + + + + + + | Result panel 29 | + + + + + +-------+ + + | | 2022-04-03 | [facility] | 177 | (missing) | (missing) | | (unavailable | 06:15 | [facility] | | | | + + + +-------+ + + + + | Result panel 30 | + + + + + +-------+ + + | | 2022-04-03 | [facility] | 1.7 | (missing) | (missing) | | (unavailable | 06:15 | [facility] | | | | + + + +-------+ + + + + | Result panel 31 | + + + + + +-------+ + + | | 2022-04-03 | [facility] | 177 | (missing) | (missing) | | (unavailable | 06:15 | [facility] | | | | + + + +-------+ + + + + | Result panel 32 | + + + + + +-------+ + + | | 2022-04-03 | [facility] | 1.7 | (missing) | (missing) | | (unavailable | 06:15 | [facility] | | | | + + + +-------+ + + + + | Result panel 33 | + + + + + +-------+ + + | | 2022-04-03 | [facility] | 177 | (missing) | (missing) | | (unavailable | 06:15 | [facility] | | | | + + + +-------+ + + + + | Result panel 34 | + + + + + +-------+ + + | | 2022-04-03 | [facility] | 1.7 | (missing) | (missing) | | (unavailable | 06:15 | [facility] | | | | + + + +-------+ + + + + | Result panel 35 | + + + + + +-------+ + + | | 2022-04-03 | [facility] | 177 | (missing) | (missing) | | (unavailable | 06:15 | [facility] | | | | + + + +-------+ + + + + | Result panel 36 | + + + + + +-------+ + + | | 2022-04-03 | [facility] | 1.7 | (missing) | (missing) | | (unavailable | 06:15 | [facility] | | | | + + + +-------+ + + + + | Result panel 37 | + + + + + + + + + | | 2022-04-20 | [facility] | SEE SCANNED | (missing) | (missing) | | (unavailable | 08:50 | [facility] | | | | + + + + + + + + + | Result panel 38 | + + + + + + + + + | | 2022-04-20 | [facility] | SEE SCANNED | (missing) | (missing) | | (unavailable | 08:50 | [facility] | | | | + + + + + + + + + | Result panel 39 | + + + + + + + + + | | 2022-04-20 | [facility] | SEE SCANNED | (missing) | (missing) | | (unavailable | 08:50 | [facility] | | | | + + + + + + + + + | Result panel 40 | + + + + + + + + + | | 2022-04-20 | [facility] | SEE SCANNED | (missing) | (missing) | | (unavailable | 08:50 | [facility] | | | | + + + + + + + + + | Result panel 41 | + + + + + + + + + | | 2022-06-30 | [facility] | NEGATIVE | (missing) | (missing) | | (unavailable | 08:50 | [facility] | | | | + + + + + + + + + | Result panel 42 | + + + + + + + + + | | 2022-06-30 | [facility] | NEGATIVE | (missing) | (missing) | | (unavailable | 08:50 | [facility] | | | | + + + + + + + + + | Result panel 43 | + + + + + + + + + | | 2022-06-30 | [facility] | NEGATIVE | (missing) | (missing) | | (unavailable | 08:50 | [facility] | | | | + + + + + + + + + | Result panel 44 | + + + + + + + + + | | 2022-06-30 | [facility] | NEGATIVE | (missing) | (missing) | | (unavailable | 08:50 | [facility] | | | | + + + + + + + + + | Result panel 45 | + + + + + +-------+ + + | | 2022-07-01 | [facility] | 6.1 | (missing) | (missing) | | (unavailable | 13:58 | [facility] | | | | + + + +-------+ + + + + | Result panel 46 | + + + + + +--------+ + + | | 2022-07-01 | [facility] | 4.25 | (missing) | (missing) | | (unavailable | 13:58 | [facility] | | | | + + + +--------+ + + + + | Result panel 47 | + + + + + +--------+ + + | | 2022-07-01 | [facility] | 13.9 | (missing) | (missing) | | (unavailable | 13:58 | [facility] | | | | + + + +--------+ + + + + | Result panel 48 | + + + + + +--------+ + + | | 2022-07-01 | [facility] | 41.3 | (missing) | (missing) | | (unavailable | 13:58 | [facility] | | | | + + + +--------+ + + + + | Result panel 49 | + + + + + +--------+ + + | | 2022-07-01 | [facility] | 97.1 | (missing) | (missing) | | (unavailable | 13:58 | [facility] | | | | + + + +--------+ + + + + | Result panel 50 | + + + + + +--------+ + + | | 2022-07-01 | [facility] | 32.7 | (missing) | (missing) | | (unavailable | 13:58 | [facility] | | | | + + + +--------+ + + + + | Result panel 51 | + + + + + +--------+ + + | | 2022-07-01 | [facility] | 33.7 | (missing) | (missing) | | (unavailable | 13:58 | [facility] | | | | + + + +--------+ + + + + | Result panel 52 | + + + + + +--------+ + + | | 2022-07-01 | [facility] | 12.9 | (missing) | (missing) | | (unavailable | 13:58 | [facility] | | | | + + + +--------+ + + + + | Result panel 53 | + + + + + +-------+ + + | | 2022-07-01 | [facility] | 274 | (missing) | (missing) | | (unavailable | 13:58 | [facility] | | | | + + + +-------+ + + + + | Result panel 54 | + + + + + +--------+ + + | | 2022-07-01 | [facility] | 32.4 | (missing) | (missing) | | (unavailable | 13:58 | [facility] | | | | + + + +--------+ + + + + | Result panel 55 | + + + + + +--------+ + + | | 2022-07-01 | [facility] | 53.4 | (missing) | (missing) | | (unavailable | 13:58 | [facility] | | | | + + + +--------+ + + + + | Result panel 56 | + + + + + +--------+ + + | | 2022-07-01 | [facility] | 11.6 | (missing) | (missing) | | (unavailable | 13:58 | [facility] | | | | + + + +--------+ + + + + | Result panel 57 | + + + + + +-------+ + + | | 2022-07-01 | [facility] | 1.8 | (missing) | (missing) | | (unavailable | 13:58 | [facility] | | | | + + + +-------+ + + + + | Result panel 58 | + + + + + +-------+ + + | | 2022-07-01 | [facility] | 0.8 | (missing) | (missing) | | (unavailable | 13:58 | [facility] | | | | + + + +-------+ + + + + | Result panel 59 | + + + + + +------+---------+ + | | 2022-07-01 | [facility] | 97 | mg/dL | (missing) | | (unavailable | 13:58 | [facility] | | | | + + + +------+---------+ + + + | Result panel 60 | + + + + + +-----+---------+ + | | 2022-07-01 | [facility] | 6 | mg/dL | (missing) | | (unavailable | 13:58 | [facility] | | | | + + + +-----+---------+ + + + | Result panel 61 | + + + + + +--------+---------+ + | | 2022-07-01 | [facility] | 1.03 | mg/dL | (missing) | | (unavailable | 13:58 | [facility] | | | | + + + +--------+---------+ + + + | Result panel 62 | + + + + + +-------+ + + | | 2022-07-01 | [facility] | 103 | (missing) | (missing) | | (unavailable | 13:58 | [facility] | | | | + + + +-------+ + + + + | Result panel 63 | + + + + + +--------+ + + | | 2022-07-01 | [facility] | 5.82 | (missing) | (missing) | | (unavailable | 13:58 | [facility] | | | | + + + +--------+ + + + + | Result panel 64 | + + + + + +-------+ + + | | 2022-07-01 | [facility] | 142 | (missing) | (missing) | | (unavailable | 13:58 | [facility] | | | | + + + +-------+ + + + + | Result panel 65 | + + + + + +-------+ + + | | 2022-07-01 | [facility] | 3.4 | (missing) | (missing) | | (unavailable | 13:58 | [facility] | | | | + + + +-------+ + + + + | Result panel 66 | + + + + + +-------+ + + | | 2022-07-01 | [facility] | 101 | (missing) | (missing) | | (unavailable | 13:58 | [facility] | | | | + + + +-------+ + + + + | Result panel 67 | + + + + + +------+ + + | | 2022-07-01 | [facility] | 15 | (missing) | (missing) | | (unavailable | 13:58 | [facility] | | | | + + + +------+ + + + + | Result panel 68 | + + + + + +--------+ + + | | 2022-07-01 | [facility] | 29.4 | (missing) | (missing) | | (unavailable | 13:58 | [facility] | | | | + + + +--------+ + + + + | Result panel 69 | + + + + + +-------+---------+ + | | 2022-07-01 | [facility] | 9.0 | mg/dL | (missing) | | (unavailable | 13:58 | [facility] | | | | + + + +-------+---------+ + + + | Result panel 70 | + + + + + +-------+---------+ + | | 2022-07-01 | [facility] | 1.9 | mg/dL | (missing) | | (unavailable | 13:58 | [facility] | | | | + + + +-------+---------+ + + + | Result panel 71 | + + + + + +-------+ + + | | 2022-07-01 | [facility] | 8.2 | (missing) | (missing) | | (unavailable | 13:58 | [facility] | | | | + + + +-------+ + + + + | Result panel 72 | + + + + + +-------+ + + | | 2022-07-01 | [facility] | 4.5 | (missing) | (missing) | | (unavailable | 13:58 | [facility] | | | | + + + +-------+ + + + + | Result panel 73 | + + + + + +-------+ + + | | 2022-07-01 | [facility] | 3.7 | (missing) | (missing) | | (unavailable | 13:58 | [facility] | | | | + + + +-------+ + + + + | Result panel 74 | + + + + + +--------+ + + | | 2022-07-01 | [facility] | 1.22 | (missing) | (missing) | | (unavailable | 13:58 | [facility] | | | | + + + +--------+ + + + + | Result panel 75 | + + + + + +-------+ + + | | 2022-07-01 | [facility] | 0.4 | (missing) | (missing) | | (unavailable | 13:58 | [facility] | | | | + + + +-------+ + + + + | Result panel 76 | + + + + + +------+ + + | | 2022-07-01 | [facility] | 23 | (missing) | (missing) | | (unavailable | 13:58 | [facility] | | | | + + + +------+ + + + + | Result panel 77 | + + + + + +------+ + + | | 2022-07-01 | [facility] | 18 | (missing) | (missing) | | (unavailable | 13:58 | [facility] | | | | + + + +------+ + + + + | Result panel 78 | + + + + + +------+ + + | | 2022-07-01 | [facility] | 74 | (missing) | (missing) | | (unavailable | 13:58 | [facility] | | | | + + + +------+ + + + + | Result panel 79 | + + + + + +-------+ + + | | 2022-07-01 | [facility] | 6.1 | (missing) | (missing) | | (unavailable | 13:58 | [facility] | | | | + + + +-------+ + + + + | Result panel 80 | + + + + + +--------+ + + | | 2022-07-01 | [facility] | 4.25 | (missing) | (missing) | | (unavailable | 13:58 | [facility] | | | | + + + +--------+ + + + + | Result panel 81 | + + + + + +--------+ + + | | 2022-07-01 | [facility] | 13.9 | (missing) | (missing) | | (unavailable | 13:58 | [facility] | | | | + + + +--------+ + + + + | Result panel 82 | + + + + + +--------+ + + | | 2022-07-01 | [facility] | 41.3 | (missing) | (missing) | | (unavailable | 13:58 | [facility] | | | | + + + +--------+ + + + + | Result panel 83 | + + + + + +--------+ + + | | 2022-07-01 | [facility] | 97.1 | (missing) | (missing) | | (unavailable | 13:58 | [facility] | | | | + + + +--------+ + + + + | Result panel 84 | + + + + + +--------+ + + | | 2022-07-01 | [facility] | 32.7 | (missing) | (missing) | | (unavailable | 13:58 | [facility] | | | | + + + +--------+ + + + + | Result panel 85 | + + + + + +--------+ + + | | 2022-07-01 | [facility] | 33.7 | (missing) | (missing) | | (unavailable | 13:58 | [facility] | | | | + + + +--------+ + + + + | Result panel 86 | + + + + + +--------+ + + | | 2022-07-01 | [facility] | 12.9 | (missing) | (missing) | | (unavailable | 13:58 | [facility] | | | | + + + +--------+ + + + + | Result panel 87 | + + + + + +-------+ + + | | 2022-07-01 | [facility] | 274 | (missing) | (missing) | | (unavailable | 13:58 | [facility] | | | | + + + +-------+ + + + + | Result panel 88 | + + + + + +--------+ + + | | 2022-07-01 | [facility] | 32.4 | (missing) | (missing) | | (unavailable | 13:58 | [facility] | | | | + + + +--------+ + + + + | Result panel 89 | + + + + + +--------+ + + | | 2022-07-01 | [facility] | 53.4 | (missing) | (missing) | | (unavailable | 13:58 | [facility] | | | | + + + +--------+ + + + + | Result panel 90 | + + + + + +--------+ + + | | 2022-07-01 | [facility] | 11.6 | (missing) | (missing) | | (unavailable | 13:58 | [facility] | | | | + + + +--------+ + + + + | Result panel 91 | + + + + + +-------+ + + | | 2022-07-01 | [facility] | 1.8 | (missing) | (missing) | | (unavailable | 13:58 | [facility] | | | | + + + +-------+ + + + + | Result panel 92 | + + + + + +-------+ + + | | 2022-07-01 | [facility] | 0.8 | (missing) | (missing) | | (unavailable | 13:58 | [facility] | | | | + + + +-------+ + + + + | Result panel 93 | + + + + + +------+---------+ + | | 2022-07-01 | [facility] | 97 | mg/dL | (missing) | | (unavailable | 13:58 | [facility] | | | | + + + +------+---------+ + + + | Result panel 94 | + + + + + +-----+---------+ + | | 2022-07-01 | [facility] | 6 | mg/dL | (missing) | | (unavailable | 13:58 | [facility] | | | | + + + +-----+---------+ + + + | Result panel 95 | + + + + + +--------+---------+ + | | 2022-07-01 | [facility] | 1.03 | mg/dL | (missing) | | (unavailable | 13:58 | [facility] | | | | + + + +--------+---------+ + + + | Result panel 96 | + + + + + +-------+ + + | | 2022-07-01 | [facility] | 103 | (missing) | (missing) | | (unavailable | 13:58 | [facility] | | | | + + + +-------+ + + + + | Result panel 97 | + + + + + +--------+ + + | | 2022-07-01 | [facility] | 5.82 | (missing) | (missing) | | (unavailable | 13:58 | [facility] | | | | + + + +--------+ + + + + | Result panel 98 | + + + + + +-------+ + + | | 2022-07-01 | [facility] | 142 | (missing) | (missing) | | (unavailable | 13:58 | [facility] | | | | + + + +-------+ + + + + | Result panel 99 | + + + + + +-------+ + + | | 2022-07-01 | [facility] | 3.4 | (missing) | (missing) | | (unavailable | 13:58 | [facility] | | | | + + + +-------+ + + + + | Result panel 100 | + + + + + +-------+ + + | | 2022-07-01 | [facility] | 101 | (missing) | (missing) | | (unavailable | 13:58 | [facility] | | | | + + + +-------+ + + + + | Result panel 101 | + + + + + +------+ + + | | 2022-07-01 | [facility] | 15 | (missing) | (missing) | | (unavailable | 13:58 | [facility] | | | | + + + +------+ + + + + | Result panel 102 | + + + + + +--------+ + + | | 2022-07-01 | [facility] | 29.4 | (missing) | (missing) | | (unavailable | 13:58 | [facility] | | | | + + + +--------+ + + + + | Result panel 103 | + + + + + +-------+---------+ + | | 2022-07-01 | [facility] | 9.0 | mg/dL | (missing) | | (unavailable | 13:58 | [facility] | | | | + + + +-------+---------+ + + + | Result panel 104 | + + + + + +-------+---------+ + | | 2022-07-01 | [facility] | 1.9 | mg/dL | (missing) | | (unavailable | 13:58 | [facility] | | | | + + + +-------+---------+ + + + | Result panel 105 | + + + + + +-------+ + + | | 2022-07-01 | [facility] | 8.2 | (missing) | (missing) | | (unavailable | 13:58 | [facility] | | | | + + + +-------+ + + + + | Result panel 106 | + + + + + +-------+ + + | | 2022-07-01 | [facility] | 4.5 | (missing) | (missing) | | (unavailable | 13:58 | [facility] | | | | + + + +-------+ + + + + | Result panel 107 | + + + + + +-------+ + + | | 2022-07-01 | [facility] | 3.7 | (missing) | (missing) | | (unavailable | 13:58 | [facility] | | | | + + + +-------+ + + + + | Result panel 108 | + + + + + +--------+ + + | | 2022-07-01 | [facility] | 1.22 | (missing) | (missing) | | (unavailable | 13:58 | [facility] | | | | + + + +--------+ + + + + | Result panel 109 | + + + + + +-------+ + + | | 2022-07-01 | [facility] | 0.4 | (missing) | (missing) | | (unavailable | 13:58 | [facility] | | | | + + + +-------+ + + + + | Result panel 110 | + + + + + +------+ + + | | 2022-07-01 | [facility] | 23 | (missing) | (missing) | | (unavailable | 13:58 | [facility] | | | | + + + +------+ + + + + | Result panel 111 | + + + + + +------+ + + | | 2022-07-01 | [facility] | 18 | (missing) | (missing) | | (unavailable | 13:58 | [facility] | | | | + + + +------+ + + + + | Result panel 112 | + + + + + +------+ + + | | 2022-07-01 | [facility] | 74 | (missing) | (missing) | | (unavailable | 13:58 | [facility] | | | | + + + +------+ + + + + | Result panel 113 | + + + + + +-------+ + + | | 2022-07-01 | [facility] | 6.1 | (missing) | (missing) | | (unavailable | 13:58 | [facility] | | | | + + + +-------+ + + + + | Result panel 114 | + + + + + +--------+ + + | | 2022-07-01 | [facility] | 4.25 | (missing) | (missing) | | (unavailable | 13:58 | [facility] | | | | + + + +--------+ + + + + | Result panel 115 | + + + + + +--------+ + + | | 2022-07-01 | [facility] | 13.9 | (missing) | (missing) | | (unavailable | 13:58 | [facility] | | | | + + + +--------+ + + + + | Result panel 116 | + + + + + +--------+ + + | | 2022-07-01 | [facility] | 41.3 | (missing) | (missing) | | (unavailable | 13:58 | [facility] | | | | + + + +--------+ + + + + | Result panel 117 | + + + + + +--------+ + + | | 2022-07-01 | [facility] | 97.1 | (missing) | (missing) | | (unavailable | 13:58 | [facility] | | | | + + + +--------+ + + + + | Result panel 118 | + + + + + +--------+ + + | | 2022-07-01 | [facility] | 32.7 | (missing) | (missing) | | (unavailable | 13:58 | [facility] | | | | + + + +--------+ + + + + | Result panel 119 | + + + + + +--------+ + + | | 2022-07-01 | [facility] | 33.7 | (missing) | (missing) | | (unavailable | 13:58 | [facility] | | | | + + + +--------+ + + + + | Result panel 120 | + + + + + +--------+ + + | | 2022-07-01 | [facility] | 12.9 | (missing) | (missing) | | (unavailable | 13:58 | [facility] | | | | + + + +--------+ + + + + | Result panel 121 | + + + + + +-------+ + + | | 2022-07-01 | [facility] | 274 | (missing) | (missing) | | (unavailable | 13:58 | [facility] | | | | + + + +-------+ + + + + | Result panel 122 | + + + + + +--------+ + + | | 2022-07-01 | [facility] | 32.4 | (missing) | (missing) | | (unavailable | 13:58 | [facility] | | | | + + + +--------+ + + + + | Result panel 123 | + + + + + +--------+ + + | | 2022-07-01 | [facility] | 53.4 | (missing) | (missing) | | (unavailable | 13:58 | [facility] | | | | + + + +--------+ + + + + | Result panel 124 | + + + + + +--------+ + + | | 2022-07-01 | [facility] | 11.6 | (missing) | (missing) | | (unavailable | 13:58 | [facility] | | | | + + + +--------+ + + + + | Result panel 125 | + + + + + +-------+ + + | | 2022-07-01 | [facility] | 1.8 | (missing) | (missing) | | (unavailable | 13:58 | [facility] | | | | + + + +-------+ + + + + | Result panel 126 | + + + + + +-------+ + + | | 2022-07-01 | [facility] | 0.8 | (missing) | (missing) | | (unavailable | 13:58 | [facility] | | | | + + + +-------+ + + + + | Result panel 127 | + + + + + +------+---------+ + | | 2022-07-01 | [facility] | 97 | mg/dL | (missing) | | (unavailable | 13:58 | [facility] | | | | + + + +------+---------+ + + + | Result panel 128 | + + + + + +-----+---------+ + | | 2022-07-01 | [facility] | 6 | mg/dL | (missing) | | (unavailable | 13:58 | [facility] | | | | + + + +-----+---------+ + + + | Result panel 129 | + + + + + +--------+---------+ + | | 2022-07-01 | [facility] | 1.03 | mg/dL | (missing) | | (unavailable | 13:58 | [facility] | | | | + + + +--------+---------+ + + + | Result panel 130 | + + + + + +-------+ + + | | 2022-07-01 | [facility] | 103 | (missing) | (missing) | | (unavailable | 13:58 | [facility] | | | | + + + +-------+ + + + + | Result panel 131 | + + + + + +--------+ + + | | 2022-07-01 | [facility] | 5.82 | (missing) | (missing) | | (unavailable | 13:58 | [facility] | | | | + + + +--------+ + + + + | Result panel 132 | + + + + + +-------+ + + | | 2022-07-01 | [facility] | 142 | (missing) | (missing) | | (unavailable | 13:58 | [facility] | | | | + + + +-------+ + + + + | Result panel 133 | + + + + + +-------+ + + | | 2022-07-01 | [facility] | 3.4 | (missing) | (missing) | | (unavailable | 13:58 | [facility] | | | | + + + +-------+ + + + + | Result panel 134 | + + + + + +-------+ + + | | 2022-07-01 | [facility] | 101 | (missing) | (missing) | | (unavailable | 13:58 | [facility] | | | | + + + +-------+ + + + + | Result panel 135 | + + + + + +------+ + + | | 2022-07-01 | [facility] | 15 | (missing) | (missing) | | (unavailable | 13:58 | [facility] | | | | + + + +------+ + + + + | Result panel 136 | + + + + + +--------+ + + | | 2022-07-01 | [facility] | 29.4 | (missing) | (missing) | | (unavailable | 13:58 | [facility] | | | | + + + +--------+ + + + + | Result panel 137 | + + + + + +-------+---------+ + | | 2022-07-01 | [facility] | 9.0 | mg/dL | (missing) | | (unavailable | 13:58 | [facility] | | | | + + + +-------+---------+ + + + | Result panel 138 | + + + + + +-------+---------+ + | | 2022-07-01 | [facility] | 1.9 | mg/dL | (missing) | | (unavailable | 13:58 | [facility] | | | | + + + +-------+---------+ + + + | Result panel 139 | + + + + + +-------+ + + | | 2022-07-01 | [facility] | 8.2 | (missing) | (missing) | | (unavailable | 13:58 | [facility] | | | | + + + +-------+ + + + + | Result panel 140 | + + + + + +-------+ + + | | 2022-07-01 | [facility] | 4.5 | (missing) | (missing) | | (unavailable | 13:58 | [facility] | | | | + + + +-------+ + + + + | Result panel 141 | + + + + + +-------+ + + | | 2022-07-01 | [facility] | 3.7 | (missing) | (missing) | | (unavailable | 13:58 | [facility] | | | | + + + +-------+ + + + + | Result panel 142 | + + + + + +--------+ + + | | 2022-07-01 | [facility] | 1.22 | (missing) | (missing) | | (unavailable | 13:58 | [facility] | | | | + + + +--------+ + + + + | Result panel 143 | + + + + + +-------+ + + | | 2022-07-01 | [facility] | 0.4 | (missing) | (missing) | | (unavailable | 13:58 | [facility] | | | | + + + +-------+ + + + + | Result panel 144 | + + + + + +------+ + + | | 2022-07-01 | [facility] | 23 | (missing) | (missing) | | (unavailable | 13:58 | [facility] | | | | + + + +------+ + + + + | Result panel 145 | + + + + + +------+ + + | | 2022-07-01 | [facility] | 18 | (missing) | (missing) | | (unavailable | 13:58 | [facility] | | | | + + + +------+ + + + + | Result panel 146 | + + + + + +------+ + + | | 2022-07-01 | [facility] | 74 | (missing) | (missing) | | (unavailable | 13:58 | [facility] | | | | + + + +------+ + + + + | Result panel 147 | + + + + + +-------+ + + | | 2022-07-01 | [facility] | 6.1 | (missing) | (missing) | | (unavailable | 13:58 | [facility] | | | | + + + +-------+ + + + + | Result panel 148 | + + + + + +--------+ + + | | 2022-07-01 | [facility] | 4.25 | (missing) | (missing) | | (unavailable | 13:58 | [facility] | | | | + + + +--------+ + + + + | Result panel 149 | + + + + + +--------+ + + | | 2022-07-01 | [facility] | 13.9 | (missing) | (missing) | | (unavailable | 13:58 | [facility] | | | | + + + +--------+ + + + + | Result panel 150 | + + + + + +--------+ + + | | 2022-07-01 | [facility] | 41.3 | (missing) | (missing) | | (unavailable | 13:58 | [facility] | | | | + + + +--------+ + + + + | Result panel 151 | + + + + + +--------+ + + | | 2022-07-01 | [facility] | 97.1 | (missing) | (missing) | | (unavailable | 13:58 | [facility] | | | | + + + +--------+ + + + + | Result panel 152 | + + + + + +--------+ + + | | 2022-07-01 | [facility] | 32.7 | (missing) | (missing) | | (unavailable | 13:58 | [facility] | | | | + + + +--------+ + + + + | Result panel 153 | + + + + + +--------+ + + | | 2022-07-01 | [facility] | 33.7 | (missing) | (missing) | | (unavailable | 13:58 | [facility] | | | | + + + +--------+ + + + + | Result panel 154 | + + + + + +--------+ + + | | 2022-07-01 | [facility] | 12.9 | (missing) | (missing) | | (unavailable | 13:58 | [facility] | | | | + + + +--------+ + + + + | Result panel 155 | + + + + + +-------+ + + | | 2022-07-01 | [facility] | 274 | (missing) | (missing) | | (unavailable | 13:58 | [facility] | | | | + + + +-------+ + + + + | Result panel 156 | + + + + + +--------+ + + | | 2022-07-01 | [facility] | 32.4 | (missing) | (missing) | | (unavailable | 13:58 | [facility] | | | | + + + +--------+ + + + + | Result panel 157 | + + + + + +--------+ + + | | 2022-07-01 | [facility] | 53.4 | (missing) | (missing) | | (unavailable | 13:58 | [facility] | | | | + + + +--------+ + + + + | Result panel 158 | + + + + + +--------+ + + | | 2022-07-01 | [facility] | 11.6 | (missing) | (missing) | | (unavailable | 13:58 | [facility] | | | | + + + +--------+ + + + + | Result panel 159 | + + + + + +-------+ + + | | 2022-07-01 | [facility] | 1.8 | (missing) | (missing) | | (unavailable | 13:58 | [facility] | | | | + + + +-------+ + + + + | Result panel 160 | + + + + + +-------+ + + | | 2022-07-01 | [facility] | 0.8 | (missing) | (missing) | | (unavailable | 13:58 | [facility] | | | | + + + +-------+ + + + + | Result panel 161 | + + + + + +------+---------+ + | | 2022-07-01 | [facility] | 97 | mg/dL | (missing) | | (unavailable | 13:58 | [facility] | | | | + + + +------+---------+ + + + | Result panel 162 | + + + + + +-----+---------+ + | | 2022-07-01 | [facility] | 6 | mg/dL | (missing) | | (unavailable | 13:58 | [facility] | | | | + + + +-----+---------+ + + + | Result panel 163 | + + + + + +--------+---------+ + | | 2022-07-01 | [facility] | 1.03 | mg/dL | (missing) | | (unavailable | 13:58 | [facility] | | | | + + + +--------+---------+ + + + | Result panel 164 | + + + + + +-------+ + + | | 2022-07-01 | [facility] | 103 | (missing) | (missing) | | (unavailable | 13:58 | [facility] | | | | + + + +-------+ + + + + | Result panel 165 | + + + + + +--------+ + + | | 2022-07-01 | [facility] | 5.82 | (missing) | (missing) | | (unavailable | 13:58 | [facility] | | | | + + + +--------+ + + + + | Result panel 166 | + + + + + +-------+ + + | | 2022-07-01 | [facility] | 142 | (missing) | (missing) | | (unavailable | 13:58 | [facility] | | | | + + + +-------+ + + + + | Result panel 167 | + + + + + +-------+ + + | | 2022-07-01 | [facility] | 3.4 | (missing) | (missing) | | (unavailable | 13:58 | [facility] | | | | + + + +-------+ + + + + | Result panel 168 | + + + + + +-------+ + + | | 2022-07-01 | [facility] | 101 | (missing) | (missing) | | (unavailable | 13:58 | [facility] | | | | + + + +-------+ + + + + | Result panel 169 | + + + + + +------+ + + | | 2022-07-01 | [facility] | 15 | (missing) | (missing) | | (unavailable | 13:58 | [facility] | | | | + + + +------+ + + + + | Result panel 170 | + + + + + +--------+ + + | | 2022-07-01 | [facility] | 29.4 | (missing) | (missing) | | (unavailable | 13:58 | [facility] | | | | + + + +--------+ + + + + | Result panel 171 | + + + + + +-------+---------+ + | | 2022-07-01 | [facility] | 9.0 | mg/dL | (missing) | | (unavailable | 13:58 | [facility] | | | | + + + +-------+---------+ + + + | Result panel 172 | + + + + + +-------+---------+ + | | 2022-07-01 | [facility] | 1.9 | mg/dL | (missing) | | (unavailable | 13:58 | [facility] | | | | + + + +-------+---------+ + + + | Result panel 173 | + + + + + +-------+ + + | | 2022-07-01 | [facility] | 8.2 | (missing) | (missing) | | (unavailable | 13:58 | [facility] | | | | + + + +-------+ + + + + | Result panel 174 | + + + + + +-------+ + + | | 2022-07-01 | [facility] | 4.5 | (missing) | (missing) | | (unavailable | 13:58 | [facility] | | | | + + + +-------+ + + + + | Result panel 175 | + + + + + +-------+ + + | | 2022-07-01 | [facility] | 3.7 | (missing) | (missing) | | (unavailable | 13:58 | [facility] | | | | + + + +-------+ + + + + | Result panel 176 | + + + + + +--------+ + + | | 2022-07-01 | [facility] | 1.22 | (missing) | (missing) | | (unavailable | 13:58 | [facility] | | | | + + + +--------+ + + + + | Result panel 177 | + + + + + +-------+ + + | | 2022-07-01 | [facility] | 0.4 | (missing) | (missing) | | (unavailable | 13:58 | [facility] | | | | + + + +-------+ + + + + | Result panel 178 | + + + + + +------+ + + | | 2022-07-01 | [facility] | 23 | (missing) | (missing) | | (unavailable | 13:58 | [facility] | | | | + + + +------+ + + + + | Result panel 179 | + + + + + +------+ + + | | 2022-07-01 | [facility] | 18 | (missing) | (missing) | | (unavailable | 13:58 | [facility] | | | | + + + +------+ + + + + | Result panel 180 | + + + + + +------+ + + | | 2022-07-01 | [facility] | 74 | (missing) | (missing) | | (unavailable | 13:58 | [facility] | | | | + + + +------+ + + + + | Result panel 181 | + + + + + +--------+ + + | | 2022-07-26 | [facility] | 12.3 | (missing) | (missing) | | (unavailable | 08:18 | [facility] | | | | + + + +--------+ + + + + | Result panel 182 | + + + + + +--------+ + + | | 2022-07-26 | [facility] | 4.60 | (missing) | (missing) | | (unavailable | 08:18 | [facility] | | | | + + + +--------+ + + + + | Result panel 183 | + + + + + +--------+ + + | | 2022-07-26 | [facility] | 14.6 | (missing) | (missing) | | (unavailable | 08:18 | [facility] | | | | + + + +--------+ + + + + | Result panel 184 | + + + + + +--------+ + + | | 2022-07-26 | [facility] | 42.6 | (missing) | (missing) | | (unavailable | 08:18 | [facility] | | | | + + + +--------+ + + + + | Result panel 185 | + + + + + +--------+ + + | | 2022-07-26 | [facility] | 92.7 | (missing) | (missing) | | (unavailable | 08:18 | [facility] | | | | + + + +--------+ + + + + | Result panel 186 | + + + + + +--------+ + + | | 2022-07-26 | [facility] | 31.8 | (missing) | (missing) | | (unavailable | 08:18 | [facility] | | | | + + + +--------+ + + + + | Result panel 187 | + + + + + +--------+ + + | | 2022-07-26 | [facility] | 34.3 | (missing) | (missing) | | (unavailable | 08:18 | [facility] | | | | + + + +--------+ + + + + | Result panel 188 | + + + + + +--------+ + + | | 2022-07-26 | [facility] | 12.8 | (missing) | (missing) | | (unavailable | 08:18 | [facility] | | | | + + + +--------+ + + + + | Result panel 189 | + + + + + +-------+ + + | | 2022-07-26 | [facility] | 355 | (missing) | (missing) | | (unavailable | 08:18 | [facility] | | | | + + + +-------+ + + + + | Result panel 190 | + + + + + +--------+ + + | | 2022-07-26 | [facility] | 81.3 | (missing) | (missing) | | (unavailable | 08:18 | [facility] | | | | + + + +--------+ + + + + | Result panel 191 | + + + + + +--------+ + + | | 2022-07-26 | [facility] | 11.5 | (missing) | (missing) | | (unavailable | 08:18 | [facility] | | | | + + + +--------+ + + + + | Result panel 192 | + + + + + +-------+ + + | | 2022-07-26 | [facility] | 7.0 | (missing) | (missing) | | (unavailable | 08:18 | [facility] | | | | + + + +-------+ + + + + | Result panel 193 | + + + + + +-------+ + + | | 2022-07-26 | [facility] | 0.0 | (missing) | (missing) | | (unavailable | 08:18 | [facility] | | | | + + + +-------+ + + + + | Result panel 194 | + + + + + +-------+ + + | | 2022-07-26 | [facility] | 0.2 | (missing) | (missing) | | (unavailable | 08:18 | [facility] | | | | + + + +-------+ + + + + | Result panel 195 | + + + + + +-------+---------+ + | | 2022-07-26 | [facility] | 163 | mg/dL | (missing) | | (unavailable | 08:18 | [facility] | | | | + + + +-------+---------+ + + + | Result panel 196 | + + + + + +-----+---------+ + | | 2022-07-26 | [facility] | 6 | mg/dL | (missing) | | (unavailable | 08:18 | [facility] | | | | + + + +-----+---------+ + + + | Result panel 197 | + + + + + +--------+---------+ + | | 2022-07-26 | [facility] | 1.08 | mg/dL | (missing) | | (unavailable | 08:18 | [facility] | | | | + + + +--------+---------+ + + + | Result panel 198 | + + + + + +------+ + + | | 2022-07-26 | [facility] | 97 | (missing) | (missing) | | (unavailable | 08:18 | [facility] | | | | + + + +------+ + + + + | Result panel 199 | + + + + + +--------+ + + | | 2022-07-26 | [facility] | 5.55 | (missing) | (missing) | | (unavailable | 08:18 | [facility] | | | | + + + +--------+ + + + + | Result panel 200 | + + + + + +-------+ + + | | 2022-07-26 | [facility] | 137 | (missing) | (missing) | | (unavailable | 08:18 | [facility] | | | + + + +-------+ + + + + | Result panel 201 | + + + + + +-------+ + + | | 2022-07-26 | [facility] | 3.6 | (missing) | (missing) | | (unavailable | 08:18 | [facility] | | | | + + + +-------+ + + + + | Result panel 202 | + + + + + +------+ + + | | 2022-07-26 | [facility] | 99 | (missing) | (missing) | | (unavailable | 08:18 | [facility] | | | | + + + +------+ + + + + | Result panel 203 | + + + + + +------+ + + | | 2022-07-26 | [facility] | 21 | (missing) | (missing) | | (unavailable | 08:18 | [facility] | | | | + + + +------+ + + + + | Result panel 204 | + + + + + +--------+ + + | | 2022-07-26 | [facility] | 20.6 | (missing) | (missing) | | (unavailable | 08:18 | [facility] | | | | + + + +--------+ + + + + | Result panel 205 | + + + + + +-------+---------+ + | | 2022-07-26 | [facility] | 9.9 | mg/dL | (missing) | | (unavailable | 08:18 | [facility] | | | | + + + +-------+---------+ + + + | Result panel 206 | + + + + + +-------+ + + | | 2022-07-26 | [facility] | 8.5 | (missing) | (missing) | | (unavailable | 08:18 | [facility] | | | | + + + +-------+ + + + + | Result panel 207 | + + + + + +-------+ + + | | 2022-07-26 | [facility] | 4.6 | (missing) | (missing) | | (unavailable | 08:18 | [facility] | | | | + + + +-------+ + + + + | Result panel 208 | + + + + + +-------+ + + | | 2022-07-26 | [facility] | 3.9 | (missing) | (missing) | | (unavailable | 08:18 | [facility] | | | | + + + +-------+ + + + + | Result panel 209 | + + + + + +--------+ + + | | 2022-07-26 | [facility] | 1.18 | (missing) | (missing) | | (unavailable | 08:18 | [facility] | | | | + + + +--------+ + + + + | Result panel 210 | + + + + + +-------+ + + | | 2022-07-26 | [facility] | 0.5 | (missing) | (missing) | | (unavailable | 08:18 | [facility] | | | | + + + +-------+ + + + + | Result panel 211 | + + + + + +------+ + + | | 2022-07-26 | [facility] | 46 | (missing) | (missing) | | (unavailable | 08:18 | [facility] | | | | + + + +------+ + + + + | Result panel 212 | + + + + + +------+ + + | | 2022-07-26 | [facility] | 27 | (missing) | (missing) | | (unavailable | 08:18 | [facility] | | | | + + + +------+ + + + + | Result panel 213 | + + + + + +------+ + + | | 2022-07-26 | [facility] | 68 | (missing) | (missing) | | (unavailable | 08:18 | [facility] | | | | + + + +------+ + + + + | Result panel 214 | + + + + + +------+ + + | | 2022-07-26 | [facility] | 28 | (missing) | (missing) | | (unavailable | 08:18 | [facility] | | | | + + + +------+ + + + + | Result panel 215 | + + + + + +------+ + + | | 2022-07-26 | [facility] | <3 | (missing) | (missing) | | (unavailable | 08:18 | [facility] | | | | + + + +------+ + + + + | Result panel 216 | + + + + + +-------+ + + | | 2023-02-01 | [facility] | 3.6 | (missing) | (missing) | | (unavailable | 10:09:07 | [facility] | | | | + + + +-------+ + + + + | Result panel 217 | + + + + + +--------+ + + | | 2023-02-01 | [facility] | 1.19 | (missing) | (missing) | | (unavailable | 10:07 | [facility] | | | | + + + +--------+ + + + + | Result panel 218 | + + + + + +-------+ + + | | 2023-02-01 | [facility] | 0.4 | (missing) | (missing) | | (unavailable | 10:07 | [facility] | | | | + + + +-------+ + + + + | Result panel 219 | + + + + + +------+ + + | | 2023-02-01 | [facility] | 32 | (missing) | (missing) | | (unavailable | 10:09:07 | [facility] | | | | + + + +------+ + + + + | Result panel 220 | + + + + + +------+ + + | | 2023-02-01 | [facility] | 28 | (missing) | (missing) | | (unavailable | 10:09:07 | [facility] | | | | + + + +------+ + + + + | Result panel 221 | + + + + + +------+ + + | | 2023-02-01 | [facility] | 64 | (missing) | (missing) | | (unavailable | 10:09:07 | [facility] | | | | + + + +------+ + + + + | Result panel 222 | + + + + + +-------+ + + | | 2023-02-01 | [facility] | 6.5 | (missing) | (missing) | | (unavailable | 10:09:07 | [facility] | | | | + + + +-------+ + + + + | Result panel 223 | + + + + + +--------+ + + | | 2023-02-01 | [facility] | 4.25 | (missing) | (missing) | | (unavailable | 10:09:07 | [facility] | | | | + + + +--------+ + + + + | Result panel 224 | + + + + + +--------+ + + | | 2023-02-01 | [facility] | 13.8 | (missing) | (missing) | | (unavailable | 10:09:07 | [facility] | | | | + + + +--------+ + + + + | Result panel 225 | + + + + + +--------+ + + | | 2023-02-01 | [facility] | 40.8 | (missing) | (missing) | | (unavailable | 10:09:07 | [facility] | | | | + + + +--------+ + + + + | Result panel 226 | + + + + + +--------+ + + | | 2023-02-01 | [facility] | 95.9 | (missing) | (missing) | | (unavailable | 10:09:07 | [facility] | | | | + + + +--------+ + + + + | Result panel 227 | + + + + + +--------+ + + | | 2023-02-01 | [facility] | 32.5 | (missing) | (missing) | | (unavailable | 10:09:07 | [facility] | | | | + + + +--------+ + + + + | Result panel 228 | + + + + + +--------+ + + | | 2023-02-01 | [facility] | 33.9 | (missing) | (missing) | | (unavailable | 10:09:07 | [facility] | | | | + + + +--------+ + + + + | Result panel 229 | + + + + + +--------+ + + | | 2023-02-01 | [facility] | 13.2 | (missing) | (missing) | | (unavailable | 10:09:07 | [facility] | | | | + + + +--------+ + + + + | Result panel 230 | + + + + + +-------+ + + | | 2023-02-01 | [facility] | 264 | (missing) | (missing) | | (unavailable | 10::07 | [facility] | | | | + + + +-------+ + + + + | Result panel 231 | + + + + + +--------+ + + | | 2023-02-01 | [facility] | 67.1 | (missing) | (missing) | | (unavailable | 10::07 | [facility] | | | | + + + +--------+ + + + + | Result panel 232 | + + + + + +--------+ + + | | 2023-02-01 | [facility] | 23.3 | (missing) | (missing) | | (unavailable | 10:: | [facility] | | | | + + + +--------+ + + + + | Result panel 233 | + + + + + +-------+ + + | | 2023-02-01 | [facility] | 7.8 | (missing) | (missing) | | (unavailable | 10::07 | [facility] | | | | + + + +-------+ + + + + | Result panel 234 | + + + + + +-------+ + + | | 2023-02-01 | [facility] | 1.3 | (missing) | (missing) | | (unavailable | 10:: | [facility] | | | | + + + +-------+ + + + + | Result panel 235 | + + + + + +-------+ + + | | 2023-02-01 | [facility] | 0.5 | (missing) | (missing) | | (unavailable | 10::07 | [facility] | | | | + + + +-------+ + + + + | Result panel 236 | + + + + + +------+---------+ + | | 2023-02-01 | [facility] | 90 | mg/dL | (missing) | | (unavailable | | [facility] | | | | + + + +------+---------+ + + + | Result panel 237 | + + + + + +-----+---------+ + | | 2023-02-01 | [facility] | 8 | mg/dL | (missing) | | (unavailable | | [facility] | | | | + + + +-----+---------+ + + + | Result panel 238 | + + + + + +--------+---------+ + | | 2023-02-01 | [facility] | 0.71 | mg/dL | (missing) | | (unavailable | 10: | [facility] | | | | + + + +--------+---------+ + + + | Result panel 239 | + + + + + +-------+ + + | | 2023-02-01 | [facility] | 130 | (missing) | (missing) | | (unavailable | : | [facility] | | | | + + + +-------+ + + + + | Result panel 240 | + + + + + +---------+ + + | | 2023-02-01 | [facility] | 11.26 | (missing) | (missing) | | (unavailable | : | [facility] | | | | + + + +---------+ + + + + | Result panel 241 | + + + + + +-------+ + + | | 2023-02-01 | [facility] | 143 | (missing) | (missing) | | (unavailable | 10::07 | [facility] | | | | + + + +-------+ + + + + | Result panel 242 | + + + + + +-------+ + + | | 2023-02-01 | [facility] | 4.0 | (missing) | (missing) | | (unavailable | 10::07 | [facility] | | | | + + + +-------+ + + + + | Result panel 243 | + + + + + +-------+ + + | | 2023-02-01 | [facility] | 104 | (missing) | (missing) | | (unavailable | 10::07 | [facility] | | | | + + + +-------+ + + + + | Result panel 244 | + + + + + +------+ + + | | 2023-02-01 | [facility] | 24 | (missing) | (missing) | | (unavailable | 10::07 | [facility] | | | | + + + +------+ + + + + | Result panel 245 | + + + + + +--------+ + + | | 2023-02-01 | [facility] | 19.0 | (missing) | (missing) | | (unavailable | 10::07 | [facility] | | | | + + + +--------+ + + + + | Result panel 246 | + + + + + +-------+---------+ + | | 2023-02-01 | [facility] | 9.5 | mg/dL | (missing) | | (unavailable | 10::07 | [facility] | | | | + + + +-------+---------+ + + + | Result panel 247 | + + + + + +-------+ + + | | 2023-02-01 | [facility] | 7.9 | (missing) | (missing) | | (unavailable | 10::07 | [facility] | | | | + + + +-------+ + + + + | Result panel 248 | + + + + + +-------+ + + | | 2023-02-01 | [facility] | 4.3 | (missing) | (missing) | | (unavailable | 10:09:07 | [facility] | | | | + + + +-------+ + + + + | Result panel 249 | + + + + + +-------+ + + | | 2023-04-15 | [facility] | 4.1 | (missing) | (missing) | | (unavailable | 19:46:07 | [facility] | | | | + + + +-------+ + + + + | Result panel 250 | + + + + + +--------+ + + | | 2023-04-15 | [facility] | 4.29 | (missing) | (missing) | | (unavailable | 19:46:07 | [facility] | | | | + + + +--------+ + + + + | Result panel 251 | + + + + + +--------+ + + | | 2023-04-15 | [facility] | 14.3 | (missing) | (missing) | | (unavailable | 19:46:07 | [facility] | | | | + + + +--------+ + + + + | Result panel 252 | + + + + + +--------+ + + | | 2023-04-15 | [facility] | 41.0 | (missing) | (missing) | | (unavailable | 19:46:07 | [facility] | | | | + + + +--------+ + + + + | Result panel 253 | + + + + + +--------+ + + | | 2023-04-15 | [facility] | 95.7 | (missing) | (missing) | | (unavailable | 19:46:07 | [facility] | | | | + + + +--------+ + + + + | Result panel 254 | + + + + + +--------+ + + | | 2023-04-15 | [facility] | 33.3 | (missing) | (missing) | | (unavailable | 19:46:07 | [facility] | | | | + + + +--------+ + + + + | Result panel 255 | + + + + + +--------+ + + | | 2023-04-15 | [facility] | 34.8 | (missing) | (missing) | | (unavailable | 19:46:07 | [facility] | | | | + + + +--------+ + + + + | Result panel 256 | + + + + + +--------+ + + | | 2023-04-15 | [facility] | 13.3 | (missing) | (missing) | | (unavailable | 19:46:07 | [facility] | | | | + + + +--------+ + + + + | Result panel 257 | + + + + + +-------+ + + | | 2023-04-15 | [facility] | 249 | (missing) | (missing) | | (unavailable | 19:46:07 | [facility] | | | | + + + +-------+ + + + + | Result panel 258 | + + + + + +--------+ + + | | 2023-04-15 | [facility] | 37.5 | (missing) | (missing) | | (unavailable | 19:46:07 | [facility] | | | | + + + +--------+ + + + + | Result panel 259 | + + + + + +--------+ + + | | 2023-04-15 | [facility] | 48.8 | (missing) | (missing) | | (unavailable | 19:46:07 | [facility] | | | | + + + +--------+ + + + + | Result panel 260 | + + + + + +-------+ + + | | 2023-04-15 | [facility] | 9.7 | (missing) | (missing) | | (unavailable | 19:46:07 | [facility] | | | | + + + +-------+ + + + + | Result panel 261 | + + + + + +-------+ + + | | 2023-04-15 | [facility] | 3.2 | (missing) | (missing) | | (unavailable | 19:46:07 | [facility] | | | | + + + +-------+ + + + + | Result panel 262 | + + + + + +-------+ + + | | 2023-04-15 | [facility] | 0.8 | (missing) | (missing) | | (unavailable | 19:46:07 | [facility] | | | | + + + +-------+ + + + + | Result panel 263 | + + + + + +------+---------+ + | | 2023-04-15 | [facility] | 97 | mg/dL | (missing) | | (unavailable | 19:46:07 | [facility] | | | | + + + +------+---------+ + + + | Result panel 264 | + + + + + +-----+---------+ + | | 2023-04-15 | [facility] | 5 | mg/dL | (missing) | | (unavailable | 19:46:07 | [facility] | | | | + + + +-----+---------+ + + + | Result panel 265 | + + + + + +--------+---------+ + | | 2023-04-15 | [facility] | 0.75 | mg/dL | (missing) | | (unavailable | 19:46:07 | [facility] | | | | + + + +--------+---------+ + + + | Result panel 266 | + + + + + +-------+ + + | | 2023-04-15 | [facility] | 127 | (missing) | (missing) | | (unavailable | 19:46:07 | [facility] | | | | + + + +-------+ + + + + | Result panel 267 | + + + + + +--------+ + + | | 2023-04-15 | [facility] | 6.66 | (missing) | (missing) | | (unavailable | 19:46:07 | [facility] | | | | + + + +--------+ + + + + | Result panel 268 | + + + + + +-------+ + + | | 2023-04-15 | [facility] | 144 | (missing) | (missing) | | (unavailable | 19:46:07 | [facility] | | | | + + + +-------+ + + + + | Result panel 269 | + + + + + +-------+ + + | | 2023-04-15 | [facility] | 3.7 | (missing) | (missing) | | (unavailable | 19:46:07 | [facility] | | | | + + + +-------+ + + + + | Result panel 270 | + + + + + +-------+ + + | | 2023-04-15 | [facility] | 102 | (missing) | (missing) | | (unavailable | 19:46:07 [facility] | | | | + + + +-------+ + + + + | Result panel 271 | + + + + + +------+ + + | | 2023-04-15 | [facility] | 25 | (missing) | (missing) | | (unavailable | 19:46:07 [facility] | | | | + + + +------+ + + + + | Result panel 272 | + + + + + +--------+ + + | | 2023-04-15 | [facility] | 20.7 | (missing) | (missing) | | (unavailable | 19:46:07 [facility] | | | + + + +--------+ + + + + | Result panel 273 | + + + + + +-------+---------+ + | | 2023-04-15 | [facility] | 8.2 | mg/dL | (missing) | | (unavailable | 19:46:07 [facility] | | | | + + + +-------+---------+ + + + | Result panel 274 | + + + + + +-------+ + + | | 2023-04-15 | [facility] | 8.0 | (missing) | (missing) | | (unavailable | 19:46:07 [facility] | | | | + + + +-------+ + + + + | Result panel 275 | + + + + + +-------+ + + | | 2023-04-15 | [facility] | 4.5 | (missing) | (missing) | | (unavailable | 19:46:07 [facility] | | | | + + + +-------+ + + + + | Result panel 276 | + + + + + +-------+ + + | | 2023-04-15 | [facility] | 3.5 | (missing) | (missing) | | (unavailable | 19:46:07 [facility] | | | | + + + +-------+ + + + + | Result panel 277 | + + + + + +--------+ + + | | 2023-04-15 | [facility] | 1.29 | (missing) | (missing) | | (unavailable | 19:46:07 [facility] | | | | + + + +--------+ + + + + | Result panel 278 | + + + + + +-------+ + + | | 2023-04-15 | [facility] | 0.3 | (missing) | (missing) | | (unavailable | 19:46:07 [facility] | | | | + + + +-------+ + + + + | Result panel 279 | + + + + + +-------+ + + | | 2023-04-15 | [facility] | 149 | (missing) | (missing) | | (unavailable | 19:46:07 [facility] | | | | + + + +-------+ + + + + | Result panel 280 | + + + + + +------+ + + | | 2023-04-15 | [facility] | 87 | (missing) | (missing) | | (unavailable | 19:46:07 [facility] | | | | + + + +------+ + + + + | Result panel 281 | + + + + + +------+ + + | | 2023-04-15 | [facility] | 68 | (missing) | (missing) | | (unavailable | 19:46:07 [facility] | | | | + + + +------+ + + + + | Result panel 282 | + + + + + +------+ + + | | 2023-04-15 | [facility] | 13 | (missing) | (missing) | | (unavailable | 19:46:07 [facility] | | | | + + + +------+ + + + + | Result panel 283 | + + + + + + + + + | | 2023-04-15 | [facility] | 04/15/2023 | (missing) | (missing) | | (unavailable | 19:46:07 | [facility] 0800 | [facility] | [facility] | | | | + + + + + + + + + | Result panel 284 | + + + + + +-------+ + + | | 2023-04-15 | [facility] | 414 | (missing) | (missing) | | (unavailable | 19:46:07 | [facility] | | | | + + + +-------+ + + + + | Result panel 285 | + + + + + +-------+ + + | | 2023-06-20 | [facility] | 5.5 | (missing) | (missing) | | (unavailable | 16:38:07 [facility] | | | | + + + +-------+ + + + + | Result panel 286 | + + + + + +--------+ + + | | 2023-06-20 | [facility] | 38.6 | (missing) | (missing) | | (unavailable | 16:38:07 [facility] | | | | + + + +--------+ + + + + | Result panel 287 | + + + + + +--------+ + + | | 2023-06-20 | [facility] | 52.4 | (missing) | (missing) | | (unavailable | 16:38:07 [facility] | | | | + + + +--------+ + + + + | Result panel 288 | + + + + + +-------+ + + | | 2023-06-20 | [facility] | 7.0 | (missing) | (missing) | | (unavailable | 16:38:07 [facility] | | | | + + + +-------+ + + + + | Result panel 289 | + + + + + +-------+ + + | | 2023-06-20 | [facility] | 1.7 | (missing) | (missing) | | (unavailable | 16:38:07 [facility] | | | | + + + +-------+ + + + + | Result panel 290 | + + + + + +-------+ + + | | 2023-06-20 | [facility] | 0.3 | (missing) | (missing) | | (unavailable | 16:38:07 [facility] | | | | + + + +-------+ + + + + | Result panel 291 | + + + + + +------+---------+ + | | 2023-06-20 | [facility] | 83 | mg/dL | (missing) | | (unavailable | 16:38:07 [facility] | | | | + + + +------+---------+ + + + | Result panel 292 | + + + + + +-----+---------+ + | | 2023-06-20 | [facility] | 5 | mg/dL | (missing) | | (unavailable | 16:38:07 [facility] | | | | + + + +-----+---------+ + + + | Result panel 293 | + + + + + +--------+---------+ + | | 2023-06-20 | [facility] | 0.58 | mg/dL | (missing) | | (unavailable | 16:38:07 [facility] | | | | + + + +--------+---------+ + + + | Result panel 294 | + + + + + +-------+ + + | | 2023-06-20 | [facility] | 137 | (missing) | (missing) | | (unavailable | 16:38:07 [facility] | | | | + + + +-------+ + + + + | Result panel 295 | + + + + + +--------+ + + | | 2023-06-20 | [facility] | 8.62 | (missing) | (missing) | | (unavailable | 16:38:07 [facility] | | | | + + + +--------+ + + + + | Result panel 296 | + + + + + +--------+ + + | | 2023-06-20 | [facility] | 4.76 | (missing) | (missing) | | (unavailable | 16:38:07 [facility] | | | | + + + +--------+ + + + + | Result panel 297 | + + + + + +-------+ + + | | 2023-06-20 | [facility] | 142 | (missing) | (missing) | | (unavailable | 16:38:07 [facility] | | | | + + + +-------+ + + + + | Result panel 298 | + + + + + +-------+ + + | | 2023-06-20 | [facility] | 4.3 | (missing) | (missing) | | (unavailable | 16:38:07 [facility] | | | | + + + +-------+ + + + + | Result panel 299 | + + + + + +-------+ + + | | 2023-06-20 | [facility] | 105 | (missing) | (missing) | | (unavailable | 16:38:07 [facility] | | | | + + + +-------+ + + + + | Result panel 300 | + + + + + +------+ + + | | 2023-06-20 | [facility] | 24 | (missing) | (missing) | | (unavailable | 16:38:07 [facility] | | | | + + + +------+ + + + + | Result panel 301 | + + + + + +--------+ + + | | 2023-06-20 | [facility] | 17.3 | (missing) | (missing) | | (unavailable | 16:38:07 [facility] | | | | + + + +--------+ + + + + | Result panel 302 | + + + + + +-------+---------+ + | | 2023-06-20 | [facility] | 8.6 | mg/dL | (missing) | | (unavailable | 16:38:07 [facility] | | | | + + + +-------+---------+ + + + | Result panel 303 | + + + + + +-------+ + + | | 2023-06-20 | [facility] | 8.3 | (missing) | (missing) | | (unavailable | 16:38:07 [facility] | | | | + + + +-------+ + + + + | Result panel 304 | + + + + + +-------+ + + | | 2023-06-20 | [facility] | 4.5 | (missing) | (missing) | | (unavailable | 16:38:07 [facility] | | | | + + + +-------+ + + + + | Result panel 305 | + + + + + +-------+ + + | | 2023-06-20 | [facility] | 3.8 | (missing) | (missing) | | (unavailable | 16:38:07 [facility] | | | | + + + +-------+ + + + + | Result panel 306 | + + + + + +--------+ + + | | 2023-06-20 | [facility] | 1.18 | (missing) | (missing) | | (unavailable | 16:38:07 [facility] | | | | + + + +--------+ + + + + | Result panel 307 | + + + + + +--------+ + + | | 2023-06-20 | [facility] | 15.5 | (missing) | (missing) | | (unavailable | 16:38:07 [facility] | | | | + + + +--------+ + + + + | Result panel 308 | + + + + + +-------+ + + | | 2023-06-20 | [facility] | 0.4 | (missing) | (missing) | | (unavailable | 16:38:07 [facility] | | | + + + +-------+ + + + + | Result panel 309 | + + + + + +------+ + + | | 2023-06-20 | [facility] | 31 | (missing) | (missing) | | (unavailable | 16:38:07 [facility] | | | | + + + +------+ + + + + | Result panel 310 | + + + + + +------+ + + | | 2023-06-20 | [facility] | 23 | (missing) | (missing) | | (unavailable | 16:38:07 [facility] | | | | + + + +------+ + + + + | Result panel 311 | + + + + + +------+ + + | | 2023-06-20 | [facility] | 56 | (missing) | (missing) | | (unavailable | 16:38:07 [facility] | | | | + + + +------+ + + + + | Result panel 312 | + + + + + +------+ + + | | 2023-06-20 | [facility] | 20 | (missing) | (missing) | | (unavailable | 16:38:07 [facility] | | | | + + + +------+ + + + + | Result panel 313 | + + + + + +------+ + + | | 2023-06-20 | [facility] | // | (missing) | (missing) | | (unavailable | 16:38:07 [facility] | | | | + + + +------+ + + + + | Result panel 314 | + + + + + +-------+ + + | | 2023-06-20 | [facility] | 397 | (missing) | (missing) | | (unavailable | 16:38:07 [facility] | | | | + + + +-------+ + + + + | Result panel 315 | + + + + + +--------+ + + | | 2023-06-20 | [facility] | 46.1 | (missing) | (missing) | | (unavailable | 16:38:07 [facility] | | | | + + + +--------+ + + + + | Result panel 316 | + + + + + +--------+ + + | | 2023-06-20 | [facility] | 96.9 | (missing) | (missing) | | (unavailable | 16:38:07 [facility] | | | | + + + +--------+ + + + + | Result panel 317 | + + + + + +--------+ + + | | 2023-06-20 | [facility] | 32.7 | (missing) | (missing) | | (unavailable | 16:38:07 [facility] | | | | + + + +--------+ + + + + | Result panel 318 | + + + + + +--------+ + + | | 2023-06-20 | [facility] | 33.7 | (missing) | (missing) | | (unavailable | 16:38:07 [facility] | | | | + + + +--------+ + + + + | Result panel 319 | + + + + + +--------+ + + | | 2023-06-20 | [facility] | 12.7 | (missing) | (missing) | | (unavailable | 16:38:07 [facility] | | | + + + +--------+ + + + + | Result panel 320 | + + + + + +-------+ + + | | 2023-06-20 | [facility] | 260 | (missing) | (missing) | | (unavailable | 16:38:07 [facility] | | | | + + + +-------+ + + Social History + + + + | date | description | facility | + + + + | 2008-11-28 00:00 | Smokes tobacco daily | [facility] | | | | [facility] | + + + + | 2022-08-09 00:00 | Smokes tobacco daily | [facility] | | | | [facility] | + + + + Vital Signs + + + +---------+ | date | measurement | value | units | + + + +---------+ | 2022-01-15 00:00 | BMI | 19.9 | kg/m2 | + + + +---------+ | 2022-01-15 00:00 | BP_diastolic | 78 | mmHg | + + + +---------+ | 2022-01-15 00:00 | BP_systolic | 131 | mmHg | + + + +---------+ | 2022-01-15 00:00 | heart_rate | 90 | /min | + + + +---------+ | 2022-01-15 00:00 | height_metric | 190.5 | cm | + + + +---------+ | 2022-01-15 00:00 | height_standard | 75 | in | + + + +---------+ | 2022-01-15 00:00 | o2_saturation | 99 | % | + + + +---------+ | 2022-01-15 00:00 | respiration_rate | 14 | /min | + + + +---------+ | 2022-01-15 00:00 | weight_metric | 72.12 | kg | + + + +---------+ | 2022-01-15 00:00 | weight_standard | 159 | lb | + + + +---------+ | 2022-02-26 00:00 | BMI | 19.9 | kg/m2 | + + + +---------+ | 2022-02-26 00:00 | BP_diastolic | 84 | mmHg | + + + +---------+ | 2022-02-26 00:00 | BP_systolic | 125 | mmHg | + + + +---------+ | 2022-02-26 00:00 | heart_rate | 77 | /min | + + + +---------+ | 2022-02-26 00:00 | height_metric | 190.5 | cm | + + + +---------+ | 2022-02-26 00:00 | height_standard | 75 | in | + + + +---------+ | 2022-02-26 00:00 | o2_saturation | 98 | % | + + + +---------+ | 2022-02-26 00:00 | respiration_rate | 14 | /min | + + + +---------+ | 2022-02-26 00:00 | temperature_metric | 36.94 | C | | | | | | + + + +---------+ | 2022-02-26 00:00 | | 98.5 | F | | | temperature_standar | | | | | d | | | + + + +---------+ | 2022-02-26 00:00 | weight_metric | 72.12 | kg | + + + +---------+ | 2022-02-26 00:00 | weight_standard | 159 | lb | + + + +---------+ | 2022-02-27 00:00 | BMI | 19.9 | kg/m2 | + + + +---------+ | 2022-02-27 00:00 | BP_diastolic | 91 | mmHg | + + + +---------+ | 2022-02-27 00:00 | BP_systolic | 120 | mmHg | + + + +---------+ | 2022-02-27 00:00 | heart_rate | 101 | /min | + + + +---------+ | 2022-02-27 00:00 | height_metric | 190.5 | cm | + + + +---------+ | 2022-02-27 00:00 | height_standard | 75 | in | + + + +---------+ | 2022-02-27 00:00 | o2_saturation | 95 | % | + + + +---------+ | 2022-02-27 00:00 | respiration_rate | 20 | /min | + + + +---------+ | 2022-02-27 00:00 | temperature_metric | 36.5 | C | | | | | | + + + +---------+ | 2022-02-27 00:00 | | 97.7 | F | | | temperature_standar | | | | | d | | | + + + +---------+ | 2022-02-27 00:00 | weight_metric | 72.12 | kg | + + + +---------+ | 2022-02-27 00:00 | weight_standard | 159 | lb | + + + +---------+ | 2022-04-03 00:00 | BMI | 19.9 | kg/m2 | + + + +---------+ | 2022-04-03 00:00 | BP_diastolic | 96 | mmHg | + + + +---------+ | 2022-04-03 00:00 | BP_systolic | 137 | mmHg | + + + +---------+ | 2022-04-03 00:00 | heart_rate | 79 | /min | + + + +---------+ | 2022-04-03 00:00 | height_metric | 190.5 | cm | + + + +---------+ | 2022-04-03 00:00 | height_standard | 75 | in | + + + +---------+ | 2022-04-03 00:00 | o2_saturation | 96 | % | + + + +---------+ | 2022-04-03 00:00 | respiration_rate | 16 | /min | + + + +---------+ | 2022-04-03 00:00 | temperature_metric | 37.06 | C | | | | | | + + + +---------+ | 2022-04-03 00:00 | | 98.7 | F | | | temperature_standar | | | | | d | | | + + + +---------+ | 2022-04-03 00:00 | weight_metric | 72.2 | kg | + + + +---------+ | 2022-04-03 00:00 | weight_standard | 159.17 | lb | + + + +---------+ | 2022-04-03 00:00 | weight_standard | 159.18 | lb | + + + +---------+ | 2022-04-20 00:00 | BMI | 20.2 | kg/m2 | + + + +---------+ | 2022-04-20 00:00 | BP_diastolic | 86 | mmHg | + + + +---------+ | 2022-04-20 00:00 | BP_systolic | 129 | mmHg | + + + +---------+ | 2022-04-20 00:00 | heart_rate | 86 | /min | + + + +---------+ | 2022-04-20 00:00 | height_metric | 190.5 | cm | + + + +---------+ | 2022-04-20 00:00 | height_standard | 75 | in | + + + +---------+ | 2022-04-20 00:00 | o2_saturation | 98 | % | + + + +---------+ | 2022-04-20 00:00 | respiration_rate | 16 | /min | + + + +---------+ | 2022-04-20 00:00 | temperature_metric | 37 | C | | | | | | + + + +---------+ | 2022-04-20 00:00 | | 98.6 | F | | | temperature_standar | | | | | d | | | + + + +---------+ | 2022-04-20 00:00 | weight_metric | 73.28 | kg | + + + +---------+ | 2022-04-20 00:00 | weight_standard | 161.55 | lb | + + + +---------+ | 2022-07-01 00:00 | BMI | 20.2 | kg/m2 | + + + +---------+ | 2022-07-01 00:00 | BP_diastolic | 69 | mmHg | + + + +---------+ | 2022-07-01 00:00 | BP_systolic | 138 | mmHg | + + + +---------+ | 2022-07-01 00:00 | heart_rate | 69 | /min | + + + +---------+ | 2022-07-01 00:00 | height_metric | 190.5 | cm | + + + +---------+ | 2022-07-01 00:00 | height_standard | 75 | in | + + + +---------+ | 2022-07-01 00:00 | o2_saturation | 97 | % | + + + +---------+ | 2022-07-01 00:00 | respiration_rate | 18 | /min | + + + +---------+ | 2022-07-01 00:00 | temperature_metric | 37.33 | C | | | | | | + + + +---------+ | 2022-07-01 00:00 | | 99.2 | F | | | temperature_standar | | | | | d | | | + + + +---------+ | 2022-07-01 00:00 | weight_metric | 73.26 | kg | + + + +---------+ | 2022-07-01 00:00 | weight_standard | 161.5 | lb | + + + +---------+ | 2022-07-01 00:00 | weight_standard | 161.51 | lb | + + + +---------+ | 2022-07-13 00:00 | BMI | 20.2 | kg/m2 | + + + +---------+ | 2022-07-13 00:00 | BP_diastolic | 79 | mmHg | + + + +---------+ | 2022-07-13 00:00 | BP_diastolic | 91 | mmHg | + + + +---------+ | 2022-07-13 00:00 | BP_systolic | 123 | mmHg | + + + +---------+ | 2022-07-13 00:00 | BP_systolic | 133 | mmHg | + + + +---------+ | 2022-07-13 00:00 | heart_rate | 77 | /min | + + + +---------+ | 2022-07-13 00:00 | heart_rate | 91 | /min | + + + +---------+ | 2022-07-13 00:00 | height_metric | 190.5 | cm | + + + +---------+ | 2022-07-13 00:00 | height_standard | 75 | in | + + + +---------+ | 2022-07-13 00:00 | o2_saturation | 96 | % | + + + +---------+ | 2022-07-13 00:00 | o2_saturation | 98 | % | + + + +---------+ | 2022-07-13 00:00 | respiration_rate | 13 | /min | + + + +---------+ | 2022-07-13 00:00 | respiration_rate | 16 | /min | + + + +---------+ | 2022-07-13 00:00 | temperature_metric | 36.89 | C | | | | | | + + + +---------+ | 2022-07-13 00:00 | temperature_metric | 37 | C | | | | | | + + + +---------+ | 2022-07-13 00:00 | | 98.4 | F | | | temperature_standar | | | | | d | | | + + + +---------+ | 2022-07-13 00:00 | | 98.6 | F | | | temperature_standar | | | | | d | | | + + + +---------+ | 2022-07-13 00:00 | weight_metric | 73.26 | kg | + + + +---------+ | 2022-07-13 00:00 | weight_standard | 161.5 | lb | + + + +---------+ | 2022-07-13 00:00 | weight_standard | 161.51 | lb | + + + +---------+ | 2022-07-14 00:00 | BMI | 20.2 | kg/m2 | + + + +---------+ | 2022-07-14 00:00 | BP_diastolic | 67 | mmHg | + + + +---------+ | 2022-07-14 00:00 | BP_systolic | 134 | mmHg | + + + +---------+ | 2022-07-14 00:00 | heart_rate | 97 | /min | + + + +---------+ | 2022-07-14 00:00 | height_metric | 190.5 | cm | + + + +---------+ | 2022-07-14 00:00 | height_standard | 75 | in | + + + +---------+ | 2022-07-14 00:00 | o2_saturation | 98 | % | + + + +---------+ | 2022-07-14 00:00 | respiration_rate | 16 | /min | + + + +---------+ | 2022-07-14 00:00 | temperature_metric | 36.39 | C | | | | | | + + + +---------+ | 2022-07-14 00:00 | | 97.5 | F | | | temperature_standar | | | | | d | | | + + + +---------+ | 2022-07-14 00:00 | weight_metric | 73.26 | kg | + + + +---------+ | 2022-07-14 00:00 | weight_standard | 161.5 | lb | + + + +---------+ | 2022-07-14 00:00 | weight_standard | 161.51 | lb | + + + +---------+ | 2022-07-20 00:00 | BMI | 20.1 | kg/m2 | + + + +---------+ | 2022-07-20 00:00 | BP_diastolic | 88 | mmHg | + + + +---------+ | 2022-07-20 00:00 | BP_systolic | 123 | mmHg | + + + +---------+ | 2022-07-20 00:00 | heart_rate | 95 | /min | + + + +---------+ | 2022-07-20 00:00 | height_metric | 190.5 | cm | + + + +---------+ | 2022-07-20 00:00 | height_standard | 75 | in | + + + +---------+ | 2022-07-20 00:00 | o2_saturation | 97 | % | + + + +---------+ | 2022-07-20 00:00 | respiration_rate | 18 | /min | + + + +---------+ | 2022-07-20 00:00 | temperature_metric | 36.89 | C | | | | | | + + + +---------+ | 2022-07-20 00:00 | | 98.4 | F | | | temperature_standar | | | | | d | | | + + + +---------+ | 2022-07-20 00:00 | weight_metric | 73.03 | kg | + + + +---------+ | 2022-07-20 00:00 | weight_standard | 161 | lb | + + + +---------+ | 2022-07-26 00:00 | BMI | 20.3 | kg/m2 | + + + +---------+ | 2022-07-26 00:00 | BP_diastolic | 87 | mmHg | + + + +---------+ | 2022-07-26 00:00 | BP_systolic | 152 | mmHg | + + + +---------+ | 2022-07-26 00:00 | heart_rate | 78 | /min | + + + +---------+ | 2022-07-26 00:00 | height_metric | 190.5 | cm | + + + +---------+ | 2022-07-26 00:00 | height_standard | 75 | in | + + + +---------+ | 2022-07-26 00:00 | o2_saturation | 100 | % | + + + +---------+ | 2022-07-26 00:00 | respiration_rate | 26 | /min | + + + +---------+ | 2022-07-26 00:00 | temperature_metric | 36.94 | C | | | | | | + + + +---------+ | 2022-07-26 00:00 | | 98.5 | F | | | temperature_standar | | | | | d | | | + + + +---------+ | 2022-07-26 00:00 | weight_metric | 73.6 | kg | + + + +---------+ | 2022-07-26 00:00 | weight_standard | 162.26 | lb | + + + +---------+ | 2022-08-09 00:00 | BMI | 20.75 | kg/m2 | + + + +---------+ | 2022-08-09 00:00 | BP_diastolic | 80 | mmHg | + + + +---------+ | 2022-08-09 00:00 | BP_systolic | 140 | mmHg | + + + +---------+ | 2022-08-09 00:00 | heart_rate | 68 | /min | + + + +---------+ | 2022-08-09 00:00 | height_metric | 190.5 | cm | + + + +---------+ | 2022-08-09 00:00 | height_standard | 75 | in | + + + +---------+ | 2022-08-09 00:00 | weight_metric | 75.3 | kg | + + + +---------+ | 2022-08-09 00:00 | weight_standard | 166 | lb | + + + +---------+ | 2022-10-19 00:00 | BMI | 20.2 | kg/m2 | + + + +---------+ | 2022-10-19 00:00 | BP_diastolic | 79 | mmHg | + + + +---------+ | 2022-10-19 00:00 | BP_diastolic | 89 | mmHg | + + + +---------+ | 2022-10-19 00:00 | BP_systolic | 121 | mmHg | + + + +---------+ | 2022-10-19 00:00 | BP_systolic | 141 | mmHg | + + + +---------+ | 2022-10-19 00:00 | heart_rate | 72 | /min | + + + +---------+ | 2022-10-19 00:00 | heart_rate | 74 | /min | + + + +---------+ | 2022-10-19 00:00 | height_metric | 190.5 | cm | + + + +---------+ | 2022-10-19 00:00 | height_standard | 75 | in | + + + +---------+ | 2022-10-19 00:00 | o2_saturation | 95 | % | + + + +---------+ | 2022-10-19 00:00 | o2_saturation | 97 | % | + + + +---------+ | 2022-10-19 00:00 | respiration_rate | 16 | /min | + + + +---------+ | 2022-10-19 00:00 | respiration_rate | 18 | /min | + + + +---------+ | 2022-10-19 00:00 | temperature_metric | 36.17 | C | | | | | | + + + +---------+ | 2022-10-19 00:00 | temperature_metric | 36.83 | C | | | | | | + + + +---------+ | 2022-10-19 00:00 | | 97.1 | F | | | temperature_standar | | | | | d | | | + + + +---------+ | 2022-10-19 00:00 | | 98.3 | F | | | temperature_standar | | | | | d | | | + + + +---------+ | 2022-10-19 00:00 | weight_metric | 73.48 | kg | + + + +---------+ | 2022-10-19 00:00 | weight_standard | 162 | lb | + + + +---------+ | 2023-01-20 00:00 | BMI | 20.3 | kg/m2 | + + + +---------+ | 2023-01-20 00:00 | BP_diastolic | 98 | mmHg | + + + +---------+ | 2023-01-20 00:00 | BP_systolic | 125 | mmHg | + + + +---------+ | 2023-01-20 00:00 | heart_rate | 76 | /min | + + + +---------+ | 2023-01-20 00:00 | height_metric | 190.5 | cm | + + + +---------+ | 2023-01-20 00:00 | height_standard | 75 | in | + + + +---------+ | 2023-01-20 00:00 | o2_saturation | 100 | % | + + + +---------+ | 2023-01-20 00:00 | respiration_rate | 16 | /min | + + + +---------+ | 2023-01-20 00:00 | temperature_metric | 35.72 | C | | | | | | + + + +---------+ | 2023-01-20 00:00 | | 96.3 | F | | | temperature_standar | | | | | d | | | + + + +---------+ | 2023-01-20 00:00 | weight_metric | 73.6 | kg | + + + +---------+ | 2023-01-20 00:00 | weight_standard | 162.25 | lb | + + + +---------+ | 2023-01-20 00:00 | weight_standard | 162.26 | lb | + + + +---------+ | 2023-02-01 00:00 | BMI | 20.0 | kg/m2 | + + + +---------+ | 2023-02-01 00:00 | height_metric | 190.5 | cm | + + + +---------+ | 2023-02-01 00:00 | height_standard | 75 | in | + + + +---------+ | 2023-02-01 00:00 | weight_metric | 72.72 | kg | + + + +---------+ | 2023-02-01 00:00 | weight_standard | 160.32 | lb | + + + +---------+ | 2023-02-11 00:00 | BP_diastolic | 62 | mmHg | + + + +---------+ | 2023-02-11 00:00 | BP_systolic | 135 | mmHg | + + + +---------+ | 2023-02-11 00:00 | heart_rate | 81 | /min | + + + +---------+ | 2023-02-11 00:00 | o2_saturation | 97 | % | + + + +---------+ | 2023-02-11 00:00 | respiration_rate | 18 | /min | + + + +---------+ | 2023-02-11 00:00 | temperature_metric | 37 | C | | | | | | + + + +---------+ | 2023-02-11 00:00 | | 98.6 | F | | | temperature_standar | | | | | d | | | + + + +---------+ | 2023-04-15 00:00 | BMI | 22.5 | kg/m2 | + + + +---------+ | 2023-04-15 00:00 | BP_diastolic | 75 | mmHg | + + + +---------+ | 2023-04-15 00:00 | BP_systolic | 115 | mmHg | + + + +---------+ | 2023-04-15 00:00 | heart_rate | 93 | /min | + + + +---------+ | 2023-04-15 00:00 | height_metric | 190.5 | cm | + + + +---------+ | 2023-04-15 00:00 | height_standard | 75 | in | + + + +---------+ | 2023-04-15 00:00 | o2_saturation | 96 | % | + + + +---------+ | 2023-04-15 00:00 | respiration_rate | 16 | /min | + + + +---------+ | 2023-04-15 00:00 | temperature_metric | 37.06 | C | | | | | | + + + +---------+ | 2023-04-15 00:00 | | 98.7 | F | | | temperature_standar | | | | | d | | | + + + +---------+ | 2023-04-15 00:00 | weight_metric | 81.76 | kg | + + + +---------+ | 2023-04-15 00:00 | weight_standard | 180.25 | lb | + + + +---------+ | 2023-06-20 00:00 | BMI | 22.5 | kg/m2 | + + + +---------+ | 2023-06-20 00:00 | BP_diastolic | 78 | mmHg | + + + +---------+ | 2023-06-20 00:00 | BP_systolic | 102 | mmHg | + + + +---------+ | 2023-06-20 00:00 | heart_rate | 84 | /min | + + + +---------+ | 2023-06-20 00:00 | height_metric | 190.5 | cm | + + + +---------+ | 2023-06-20 00:00 | height_standard | 75 | in | + + + +---------+ | 2023-06-20 00:00 | o2_saturation | 96 | % | + + + +---------+ | 2023-06-20 00:00 | respiration_rate | 13 | /min | + + + +---------+ | 2023-06-20 00:00 | temperature_metric | 36.83 | C | | | | | | + + + +---------+ | 2023-06-20 00:00 | | 98.3 | F | | | temperature_standar | | | | | d | | | + + + +---------+ | 2023-06-20 00:00 | weight_metric | 81.65 | kg | + + + +---------+ | 2023-06-20 00:00 | weight_standard | 180 | lb | + + + +---------+ | 2023-06-20 00:00 | weight_standard | 180.01 | lb | + + + +---------+"
--- OUTSIDE RECORDS SUMMARY | ~2023-07-18 | XMS | Continuity of Care Document ---
Demographics + + + | Address | [address] | | | [place] [address] | + + + | Preferred Language | Unknown | + + + | Marital Status | Never | + + + | Anabaptism Affiliation | Unknown | + + + | Race | White | + + + | Ethnic Group | Not or | + + + Author + + + | Author | [facility] | + + + | Organization | [facility] | + + + | Address | [address] | | | [place] [address] | + + + | Phone | | + + + Care Team Providers + + + + | Care Superintendent Quarry Name | Role | Phone | + [...] | | | DIPHTHER. TOX | at [place] | | | | | (PF) | [...] (no severity) | | | | at [place] | | | | | | Crest [...] | | | | | | qs [id number] | | | | | | (36 mos, up) | | | | + + + + + + | (no date) | Penicillin | [facility] | (no reaction) | (no severity) | | | [facility] | | | + + + + + + | (no date) | TETANUS AND | [facility] | (no reaction) | (no severity) | | | DIPHTHER. TOX | [facility] | | | | | (PF) | Hospital | | | + + + + + + | (no date) | Penicillin | [facility] | (no reaction) | (no severity) | | | | [facility] | [facility] | | | + + + + + + | (no date) | Wasp venom | [facility] | (no reaction) | (no severity) | | | | [facility] | | | | [facility] Hospital | | | + + + + + + Encounters No information. Functional Status No information. Immunizations + + + + | date | description | facility | + + + + | 2015-12-29 00:00 | DTaP | [facility] | + + + + | 2015-12-29 00:00 | DTaP | [facility] | + + + + Medications + + + + | date | description | facility | + + + + | 2022-07-26 00:00 | ondansetron (as | [facility] | | | ondansetron hcl) 4 mg | [facility] | | | disintegrating oral tablet | | + + + + | 2019-03-20 00:00 | oxycodone hcl 5 mg oral | [facility] | | | tablet | [facility] | + + + + | 2016-05-01 00:00 | DIPHENHYDRAMINE HCL | [facility] | + + + + | 2016-05-01 00:00 | DIPHENHYDRAMINE HCL | [facility] | + + + + | 2023-02-11 00:00 | DIVALPROEX SODIUM | [facility] | + + + + | 2023-04-15 00:00 | DIVALPROEX SODIUM | [facility] | + + + + | 2023-06-20 00:00 | DIVALPROEX SODIUM | [facility] | + + + + | 2019-03-20 00:00 | vpa 250 mg oral capsule | [facility] [place] | | | | [facility] | + + + + | 2021-06-20 00:00 | DOXYCYCLINE HYCLATE | [facility] | + + + + | 2021-06-20 00:00 | DOXYCYCLINE HYCLATE | [facility] | + + + + | 2014-04-21 00:00 | NAPROXEN | [facility] | + + + + | 2014-04-21 00:00 | NAPROXEN | [facility] | + + + + | 2023-02-11 00:00 | CELECOXIB | [facility] | + + + + | 2023-02-11 00:00 | CELECOXIB | [facility] | + + + + | 2022-05-19 00:00 | [id number] 200 actuat | [facility] | | | albuterol 0.09 mg/actuat | [facility] | | | metered dose inhaler | | + + + + | 2015-12-01 00:00 | LEVETIRACETAM | [facility] | + + + + | 2015-12-01 00:00 | LEVETIRACETAM | [facility] | + + + + | 2015-12-22 00:00 | LEVETIRACETAM | [facility] | + + + + | 2015-12-22 00:00 | LEVETIRACETAM | [facility] | + + + + | 2022-02-26 00:00 | LEVETIRACETAM | [facility] | + + + + | 2022-02-26 00:00 | LEVETIRACETAM | [facility] | + + + + | 2022-05-19 00:00 | levetiracetam 750 mg oral | [facility] [place] | | | tablet [keppra] | [facility] | + + + + | 2014-04-21 00:00 | AMOXICILLIN | [facility] | + + + + | 2014-04-21 00:00 | AMOXICILLIN | [facility] | + + + + | 2015-05-25 00:00 | AMOXICILLIN | [facility] | + + + + | 2015-05-25 00:00 | AMOXICILLIN | [facility] | + + + + | 2022-05-19 00:00 | levetiracetam 750 mg oral | [facility] [place] | | | tablet | [facility] | + + + + | 2016-05-01 00:00 | predniSONE | [facility] | + + + + | 2016-05-01 00:00 | predniSONE | [facility] | + + + + | 2021-08-29 00:00 | predniSONE | [facility] | + + + + | 2021-08-29 00:00 | predniSONE | [facility] | + + + + | 2022-08-09 00:00 | levetiracetam 1000 mg oral | [facility] [place] | | | tablet | [facility] | + + + + | 2022-04-03 00:00 | AMOXICILLIN/POTASSIUM CLAV | [facility] | | | | | + + + + | 2022-04-03 00:00 | AMOXICILLIN/POTASSIUM CLAV | [facility] | | | | | + + + + | 2015-09-25 00:00 | LEVETIRACETAM | [facility] | + + + + | 2015-09-25 00:00 | LEVETIRACETAM | [facility] | + + + + | 2022-10-19 00:00 | PYRIDOXINE HCL | [facility] | + + + + | 2022-08-09 00:00 | pyridoxine 50 mg oral | [facility] | | | tablet | [facility] | + + + + | 2022-05-19 00:00 | [id number] 200 actuat | [facility] | | | albuterol 0.09 mg/actuat | [facility] | | | metered dose inhaler | | | | [proair] | | + + + + | 2014-04-21 00:00 | TRAMADOL HCL | [facility] | + + + + | 2014-04-21 00:00 | TRAMADOL HCL | [facility] | + + + + | 2015-05-25 00:00 | TRAMADOL HCL | [facility] | + + + + | 2015-05-25 00:00 | TRAMADOL HCL | [facility] | + + + + | 2023-06-20 00:00 | LEVETIRACETAM | [facility] | + + + + | 2016-08-23 00:00 | PHENYTOIN SODIUM EXTENDED | [facility] | + + + + | 2016-08-23 00:00 | PHENYTOIN SODIUM EXTENDED | [facility] | + + + + | 2022-07-05 00:00 | TRAZODONE HCL | [facility] | + + + + | 2022-07-20 00:00 | TRAZODONE HCL | [facility] | + + + + | 2022-07-21 00:00 | TRAZODONE HCL | [facility] | + + + + | 2022-07-22 00:00 | TRAZODONE HCL | [facility] | + + + + | 2022-07-26 00:00 | TRAZODONE HCL | [facility] | + + + + | 2022-10-19 00:00 | TRAZODONE HCL | [facility] | + + + + | 2023-01-20 00:00 | TRAZODONE HCL | [facility] | + + + + | 2023-02-11 00:00 | TRAZODONE HCL | [facility] | + + + + | 2023-04-15 00:00 | TRAZODONE HCL | [facility] | + + + + | 2023-06-20 00:00 | TRAZODONE HCL | [facility] | + + + + | 2015-12-01 00:00 | TRAZODONE HCL | [facility] | + + + + | 2015-12-01 00:00 | TRAZODONE HCL | [facility] | + + + + | 2022-04-03 00:00 | HYDROCODONE | [facility] | | | BIT/ACETAMINOPHEN | | + + + + | 2022-04-03 00:00 | HYDROCODONE | [facility] | | | BIT/ACETAMINOPHEN | | + + + + | 2020-03-23 00:00 | HYDROCODONE | [facility] | | | BIT/ACETAMINOPHEN | | + + + + | 2020-03-23 00:00 | HYDROCODONE | [facility] | | | BIT/ACETAMINOPHEN | | + + + + | 2023-02-11 00:00 | HYDROCODONE | [facility] | | | BIT/ACETAMINOPHEN | | + + + + | 2022-07-26 00:00 | PROMETHAZINE HCL | [facility] | + + + + Problems + + + + | date | description | facility | + + + + | 2014-08-13 00:00 | Laceration of right index | [facility] | | | finger without foreign body | | | | without damage to nail | | + + + + | 2014-08-13 00:00 | Laceration of right index | [facility] | | | finger without foreign body | | | | without damage to nail | | + + + + | 2015-05-25 00:00 | Acute pharyngitis | [facility] | + + + + | 2015-05-25 00:00 | Acute pharyngitis | [facility] | + + + + | 2015-06-23 00:00 | Convulsions | [facility] | + + + + | 2015-06-23 00:00 | Convulsions | [facility] | + + + + | 2015-09-25 00:00 | Seizure | [facility] | + + + + | 2015-09-25 00:00 | Seizure | [facility] | + + + + | 2015-12-01 00:00 | Anxiety | [facility] | + + + + | 2015-12-01 00:00 | Anxiety | [facility] | + + + + | 2015-12-01 00:00 | Seizure disorder | [facility] | + + + + | 2015-12-01 00:00 | Seizure disorder | [facility] | + + + + | 2015-12-29 00:00 | Laceration of toe | [facility] | + + + + | 2015-12-29 00:00 | Laceration of toe | [facility] | + + + + | 2015-12-29 00:00 | Encounter for wound | [facility] | | | re-check | | + + + + | 2015-12-29 00:00 | Encounter for wound | [facility] | | | re-check | | + + + + | 2016-05-01 00:00 | Allergic dermatitis | [facility] | + + + + | 2016-05-01 00:00 | Allergic dermatitis | [facility] | + + + + | 2016-05-25 00:00 | Acute gastroenteritis | [facility] | + + + + | 2016-05-25 00:00 | Acute gastroenteritis | [facility] | + + + + | 2017-03-12 00:00 | Encounter for medical | [facility] | | | screening examination | | + + + + | 2017-03-12 00:00 | Encounter for medical | [facility] | | | screening examination | | + + + + | 2017-05-29 00:00 | Vomiting | [facility] | + + + + | 2017-05-29 00:00 | Vomiting | [facility] | + + + + | 2018-07-12 00:00 | Alcohol abuse | [facility] | + + + + | 2018-07-12 00:00 | Alcohol abuse | [facility] | + + + + | 2018-07-12 00:00 | Urticaria | [facility] | + + + + | 2018-07-12 00:00 | Urticaria | [facility] | + + + + | 2019-03-19 00:00 | closed fracture of left | [facility] | | | mandible (disorder) | [facility] | + + + + | 2019-03-19 00:00 | closed fracture of base of | [facility] | | | skull (disorder) | [facility] | + + + + | 2019-03-19 00:00 | hemorrhage into | [facility] | | | subarachnoid space of | [facility] | | | neuraxis (disorder) | | + + + + | 2019-03-19 00:00 | SAH (subarachnoid | [facility] | | | hemorrhage) | [facility] | + + + + | 2019-03-19 00:00 | Closed fracture of base of | [facility] | | | skull with subarachnoid | | | | hemorrhage | | + + + + | 2019-03-19 00:00 | Closed fracture of base of | [facility] | | | skull with subarachnoid | | | | hemorrhage | | + + + + | 2019-03-19 00:00 | Closed fracture of base of | [facility] | | | skull, unspecified | [facility] | | | laterality, initial | | | | encounter | | + + + + | 2019-03-19 00:00 | Closed fracture of left | [facility] [place] | | | side of mandible, | [facility] | | | unspecified mandibular | | | | site, initial encounter | | + + + + | 2019-03-20 00:00 | seizure disorder | [facility] | | | (disorder) | [facility] | + + + + | 2019-03-20 00:00 | drug therapy observations | [facility] | | | | [facility] | + + + + | 2019-03-20 00:00 | Seizure disorder | [facility] [place] | | | | [facility] | + + + + | 2019-03-20 00:00 | Fall from ground level | [facility] | | | | [facility] | + + + + | 2019-03-20 00:00 | Encounter for monitoring | [facility] | | | anticonvulsant therapy | [facility] | + + + + | 2022-01-15 00:00 | Acute alcoholic | [facility] | | | intoxication | | + + + + | 2022-01-15 00:00 | Acute alcoholic | [facility] | | | intoxication | | + + + + | 2022-01-15 00:00 | Closed displaced fracture | [facility] | | | of nasal bone | | + + + + | 2022-01-15 00:00 | Closed displaced fracture | [facility] | | | of nasal bone | | + + + + | 2022-01-15 00:00 | Fracture of left side of | [facility] | | | maxilla | | + + + + | 2022-01-15 00:00 | Fracture of left side of | [facility] | | | maxilla | | + + + + | 2022-02-27 00:00 | Muscle spasm of left | [facility] | | | shoulder area | | + + + + | 2022-02-27 00:00 | Muscle spasm of left | [facility] | | | shoulder area | | + + + + | 2022-04-03 00:00 | Bite by animal | [facility] | + + + + | 2022-04-03 00:00 | Bite by animal | [facility] | + + + + | 2022-04-20 00:00 | Epilepsy | [facility] | + + + + | 2022-04-20 00:00 | Epilepsy | [facility] | + + + + | 2022-07-01 00:00 | Recurrent seizures | [facility] | + + + + | 2022-07-01 00:00 | Recurrent seizures | [facility] | + + + + | 2022-07-14 00:00 | Patient left without being | [facility] | | | seen | | + + + + | 2022-07-14 00:00 | Patient left without being | [facility] | | | seen | | + + + + | 2022-08-09 13:01:37 | Alcohol dependence, | [facility] | | | uncomplicated | [facility] | + + + + | 2022-08-09 13:01:37 | Nightmare disorder | [facility] | | | | [facility] | + + + + | 2022-08-09 13:01:37 | Localization-related | [facility] | | | (focal) (partial) | [facility] | | | 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 with | | | | seizures of localized | | | | onset, not intractable, | | | | without status epilepticus | | + + + + | 2022-09-08 13:48:18 | Alcohol dependence, | [facility] | | | uncomplicated | [facility] | + + + + | 2022-09-08 13:48:18 | Nightmare disorder | [facility] | | | | [facility] | + + + + | 2022-09-08 13:48:18 | Localization-related | [facility] | | | (focal) (partial) | [facility] | | | 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 with | | | | seizures of localized | | | | onset, not intractable, | | | | without status epilepticus | | + + + + | 2022-09-08 13:48:18 | Other fdc (current) | [facility] | | | drug therapy | [facility] | + + + + | 2022-10-19 00:00 | Facial laceration | [facility] | + + + + | 2022-10-19 00:00 | Facial laceration | [facility] | + + + + | 2022-10-27 13:33:55 | Localization-related | [facility] | | | (focal) (partial) | [facility] | | | 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 with | | | | seizures of localized | | | | onset, not intractable, | | | | without status epilepticus | | + + + + | 2022-10-27 13:33:55 | Other assistant terminal manager (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) | [facility] | | | drug therapy | [facility] | + + + + | 2022-12-08 13:44:20 | Localization-related | [facility] | | | (focal) (partial) | [facility] | | | 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 with | | | | seizures of localized | | | | onset, not intractable, | | | | without status epilepticus | | + + + + | 2022-12-08 13:44:20 | Other fdc (current) | [facility] | | | drug therapy | [facility] | + + + + | 2023-01-12 13:45:49 | Localization-related | [facility] | | | (focal) (partial) | [facility] | | | 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 with | | | | seizures of localized | | | | onset, not intractable, | | | | without status epilepticus | | + + + + | 2023-01-20 00:00 | Closed fracture of distal | [facility] | | | end of fibula | | + + + + | 2023-01-20 00:00 | Closed fracture of distal | [facility] | | | end of fibula [...] + + | 2023-01-20 09:51 | 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 ROTOR COIL TAPER (CURRENT) | [facility] | | | DRUG [...] 2023-04-15 00:00 | Left against medical | [facility] | | | advice | | [...] + + | 2023-04-15 19:02 | OTHER ROTOR COIL TAPER (CURRENT) | [facility] | | | DRUG THERAPY | | + + + + | 2023-04-15 19:02 | ALLERGY STATUS TO SERUM | [facility] | | | AND VACCINE STATUS | | + + + + | 2023-04-15 19:02 | BEE ALLERGY STATUS | [facility] | + + + + | 2023-04-20 14:59:13 | Localization-related | [facility] | | | (focal) (partial) | [facility] | | | 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 with | | | | seizures of localized | | | | onset, not intractable, | | | | without status epilepticus | | + + + + | 2023-04-20 14:59:13 | Other fdc (current) | [facility] | | | drug therapy | [facility] | + + + + [...] + + | 2023-06-20 16:23 | OTHER [facility] (CURRENT) | [facility] | | | DRUG [...] + + | 2023-06-21 12:19 | OTHER ROTOR COIL TAPER (CURRENT) | [facility] | | | DRUG [...] (missing) | | (unavailable | 13:58 | [facility] | | | | | ) | [...] (missing) | | (unavailable | 13:58 | [facility] | | | | | ) | [...] Smokes tobacco daily | [facility] [place] | | | | [facility] | + + + + | 2022-08-09 00:00 | Smokes tobacco daily | [facility] [place] | | | | [facility] [...]
[~2023-07-18 08:24] MED LIST changes: +LEVETIRACETAM750 M1 PO
--- OUTSIDE RECORDS SUMMARY | 2023-07-18 08:26 | XMS ---
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 - Patient with suicidal and/or homicidal ideations eloped. - Patient eloped with IV in place. Details: Patient left AMA. CRITERIA MET - Group Notification - [facility] - 2 Visits in 30 Days CARE PROVIDERS -Melany- Dentist: Communications Designer [facility] PHONE: [phone] HARI FUNG Physician Piping Drafter Current PHONE: Unknown Diony has no Care Guidelines for this patient. Care History Medical/Surgical 03/20/2019 [facility] WRONG PHONE NUMBER Please update patient phone number when seen. CHW needs to contact patient E.D. VISIT COUNT (12 MO.) [address] [facility] TOTAL 9 NOTE: Visits indicate total known visits. ED/UCC VISIT TRACKING (12 MO.) 07/18/2023 08:24 [facility] [place] TYPE: Emergency COMPLAINT: - L SIDE FACIAL SWELLING 06/21/2023 12:19 [facility] [place] TYPE: Emergency COMPLAINT: - POSS SEIZURE DIAGNOSES: - Alcohol abuse with intoxication, unspecified - Allergy status to penicillin - Allergy status to serum and vaccine - Bee allergy status - Epilepsy, unspecified, not intractable, without status epilepticus - Nicotine dependence, unspecified, uncomplicated - Other [facility] (current) drug therapy - Unspecified convulsions 06/20/2023 16:23 [facility] [place] TYPE: Emergency COMPLAINT: - SEIZURE DIAGNOSES: - Allergy status to penicillin - Allergy status to serum and vaccine - Bee allergy status - Epilepsy, unspecified, not intractable, without status epilepticus - Nicotine dependence, unspecified, uncomplicated - Other [facility] (current) drug therapy - Unspecified convulsions 04/15/2023 19:02 [facility] [place] TYPE: Emergency COMPLAINT: - POST OP PROBLEM DIAGNOSES: - Allergy status to serum and vaccine - Bee allergy status - Nicotine dependence, unspecified, uncomplicated - Other ad terminal makeup operator (current) drug therapy - Procedure and treatment not carried out because of patient's decision for other reasons - Unspecified convulsions 01/20/2023 09:51 [facility] [place] TYPE: Emergency COMPLAINT: - ANKLE PAIN DIAGNOSES: - Allergy status to serum and vaccine - Bee allergy status - Fall on same level from slipping, tripping and stumbling without subsequent striking against object, initial encounter - Nicotine dependence, unspecified, uncomplicated - Other fracture of upper and lower end of right fibula, initial encounter for closed fracture - Other [facility] (current) drug therapy - Pain in right [...] - Nicotine dependence, unspecified, uncomplicated - Other ad terminal makeup operator (current) drug therapy - Procedure and treatment [...] - Nicotine dependence, unspecified, uncomplicated - Other ad terminal makeup operator (current) drug therapy - Vomiting, unspecified 07/20/2022 14:[address] [facility] [place] TYPE: Emergency COMPLAINT: - SEIZURE DIAGNOSES: - Alcohol abuse, uncomplicated - Allergy status to serum and vaccine - Bee allergy status - Epilepsy, unspecified, not intractable, without status epilepticus - Nicotine dependence, unspecified, uncomplicated - Other [facility] (current) drug therapy INPATIENT VISIT TRACKING (12 MO.) No inpatient visits to display in this time frame [id number]
[2023-07-18 10:30] VITALS: BP 00/00
== END 2023-07-18 10:30 | disposition left against medical advice (07) ==
LOC: ED 08:24
DX: S00.12XA Contusion of left eyelid and periocular area, initial encounter (principal); W22.8XXA Striking against or struck by other objects, initial encounter; G43.909 Migraine, unspecified, not intractable, without status migrainosus; F17.200 Nicotine dependence, unspecified, uncomplicated; Z88.0 Allergy status to penicillin; Z88.7 Allergy status to serum and vaccine; Z91.030 Bee allergy status; Z79.899 Other long term (current) drug therapy; Z53.29 Procedure and treatment not carried out because of patient's decision for other reasons
CPT/HCPCS: 70486

== ENCOUNTER 2023-09-01 06:06 | Emergency (ER) | payer SELFPAY ==
[~2023-09-01] VITALS: Ht 190.5 cm; Wt 79.4 kg
--- OUTSIDE RECORDS SUMMARY | ~2023-09-01 | XMS | Continuity of Care Document ---
Demographics + + + | Address | [address] | | | [place] [address] | + + + | Preferred Language | Unknown | + + + | Marital Status | Never | + + + | Rastafarian Affiliation | Unknown | + + + | Race | White | + + + | Ethnic Group | Not or | + + + Author + + + | Author | [facility] | + + + | Organization | [facility] | + + + | Address | [address] | | | [place], [place] [address] | + + + | Phone | | + + + Care Team Providers + + + + | Care Patient Support Representative Name | Role | Phone | + + + + Unavailable | Unavailable | + + + + Allergies No information. Encounters No information. Functional Status No information. Immunizations No information. Medications No information. 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) | [facility] | | | DRUG [...] [facility] | + + + + | 2023-07-18 08:24 | NICOTINE DEPENDENCE, | [facility] | | | UNSPECIFIED, UNCOMPLICATED | | + + + + | 2023-07-18 08:24 | MIGRAINE, UNSP, NOT | [facility] | | | INTRACTABLE, WITHOUT STATUS | | | | ND | | + + + + | 2023-07-18 08:24 | CONTUSION OF LEFT EYELID | [facility] | | | AND PERIOCULAR AREA, INIT | | | | ENCNTR | | + + + + | 2023-07-18 08:24 | STRIKING AGAINST OR STRUCK | [facility] | | | BY OTHER OBJECTS, INIT | | + + + + | 2023-07-18 08:24 | PROC/TRTMT NOT CRD OUT BEC | [facility] | | | PT DECISION FOR OTH ELOISA | | + + + + | 2023-07-18 08:24 | [facility] ([facility]) | [facility] | | | DRUG THERAPY | | + + + + | 2023-07-18 08:24 | ALLERGY STATUS TO | [facility] | | | PENICILLIN | | + + + + | 2023-07-18 08:24 | ALLERGY STATUS TO SERUM | [facility] | | | AND VACCINE STATUS | | + + + + | 2023-07-18 08:24 | BEE ALLERGY STATUS | [facility] | + + + + | 2023-08-09 10:31 | NICOTINE DEPENDENCE, | [facility] | | | UNSPECIFIED, UNCOMPLICATED | | + + + + | 2023-08-09 10:31 | EPILEPSY, UNSP, NOT | [facility] | | | INTRACTABLE, WITHOUT STATUS | | | | EP | | + + + + | 2023-08-09 10:31 | UNSPECIFIED CONVULSIONS | [facility] | + + + + | 2023-08-09 10:31 | [facility] ([facility]) | [facility] | | | DRUG THERAPY | | + + + + | 2023-08-09 10:31 | ALLERGY STATUS TO | [facility] | | | PENICILLIN | | + + + + | 2023-08-09 10:31 | ALLERGY STATUS TO SERUM | [facility] | | | AND VACCINE STATUS | | + + + + | 2023-08-09 10:31 | BEE ALLERGY STATUS | [facility] | + + + + | 2023-08-09 10:31 | OTHER INSECT ALLERGY | [facility] | | | STATUS | | + + + + | 2023-08-24 13:45 | NICOTINE DEPENDENCE, | [facility] | | | UNSPECIFIED, UNCOMPLICATED | | + + + + | 2023-08-24 13:45 | EPILEPSY, UNSP, NOT | [facility] | | | INTRACTABLE, WITHOUT STATUS | | | | EP | | + + + + | 2023-08-24 13:45 | TOXIC EFFECT OF VENOM OF | [facility] | | | BEES, ACCIDENTAL, INIT | | + + + + | 2023-08-24 13:45 | OTHER [facility] (CURRENT) | [facility] | | | DRUG THERAPY | | + + + + | 2023-08-24 13:45 | ALLERGY STATUS TO | [facility] | | | PENICILLIN | | + + + + | 2023-08-24 13:45 | ALLERGY STATUS TO SERUM | [facility] | | | AND VACCINE STATUS | | + + + + Procedures No information. Results/Labs No information. Social History +--------+ + + | date | description | facility | +--------+ + + Vital Signs No information."
--- OUTSIDE RECORDS SUMMARY | 2023-09-01 06:09 | XMS ---
PreManage Notification: MARY HILLMAN Security Referral Clerk Events 2 event(s) in the past 18 months Most recent security events: Elopement at [facility] 07/18/2023 08:24 - Patient eloped before treatment completed. - Patient with suicidal and/or homicidal ideations eloped. - Patient eloped with IV in place. Details: Patient left AMA Elopement at [facility] 10/19/2022 14:16 - Patient eloped before treatment completed. - Patient with suicidal and/or homicidal ideations eloped. - Patient eloped with IV in place. Details: Patient left AMA. CRITERIA MET - 6 ED Visits in 6 Months - Group Notification [facility] - 2 Visits in 30 Days CARE PROVIDERS -Melany- Dentist: Cad Manager [facility] PHONE: [phone] HARI FUNG Physician Carbider Current PHONE: Unknown Diony has no Care Guidelines for this patient. Care History Medical/Surgical 03/20/2019 [facility] WRONG PHONE NUMBER Please update patient phone number when seen. CHW needs to contact patient Terri VISIT COUNT (12 MO.) 10 [facility] [place] TOTAL 10 NOTE: Visits indicate total known visits. ED/UCC VISIT TRACKING (12 MO.) [facility] COMPLAINT: - L KNEE PAIN 08/24/2023 13:45 [facility] [place] TYPE: Emergency COMPLAINT: - BEE STING DIAGNOSES: - Allergy status to penicillin - Allergy status to serum and vaccine - Epilepsy, unspecified, not intractable, without status epilepticus - Nicotine dependence, unspecified, uncomplicated - Other figure model (current) drug therapy - Toxic effect of venom of bees, accidental (unintentional), initial encounter 08/09/2023 10:31 [facility] [place] TYPE: Emergency COMPLAINT: - POSS SEIZURE DIAGNOSES: - Allergy status to penicillin - Allergy status to serum and vaccine - Bee allergy status - Epilepsy, unspecified, not intractable, without status epilepticus - Nicotine dependence, unspecified, uncomplicated - Other insect allergy status - Other figure model (current) drug therapy - Unspecified convulsions 07/18/2023 08:[address] [facility] [place] TYPE: Emergency COMPLAINT: - L SIDE FACIAL SWELLING DIAGNOSES: - Allergy status to penicillin - Allergy status to serum and vaccine - Bee allergy status - Contusion of left eyelid and periocular area, initial encounter - Migraine, unspecified, not intractable, without status migrainosus - Nicotine dependence, unspecified, uncomplicated - Other figure model (current) drug therapy - Procedure and treatment not carried out because of patient's decision for other reasons - Striking against or struck by other objects, initial encounter 06/21/2023 12:19 [facility] [place] TYPE: Emergency COMPLAINT: - POSS SEIZURE DIAGNOSES: - Alcohol abuse with intoxication, unspecified - Allergy status to penicillin - Allergy status to serum and vaccine - Bee allergy status - Epilepsy, unspecified, not intractable, without status epilepticus - Nicotine dependence, unspecified, uncomplicated - Other assisted (current) drug therapy - Unspecified convulsions 06/20/2023 16:23 [facility] [place] TYPE: Emergency COMPLAINT: - SEIZURE DIAGNOSES: - Allergy status to penicillin - Allergy status to serum and vaccine - Bee allergy status - Epilepsy, unspecified, not intractable, without status epilepticus - Nicotine dependence, unspecified, uncomplicated - Other figure model (current) drug therapy - Unspecified convulsions 04/15/2023 19:02 [facility] [place] TYPE: Emergency COMPLAINT: - POST OP PROBLEM DIAGNOSES: - Allergy status to serum and vaccine - Bee allergy status - Nicotine dependence, unspecified, uncomplicated - Other figure model (current) drug therapy - Procedure and treatment [...] initial encounter for closed fracture - Other assisted (current) drug therapy - Pain in right [...] - Nicotine dependence, unspecified, uncomplicated - Other assisted (current) drug therapy - Procedure and treatment not carried out because of patient's decision for other reasons - Striking against other stationary object, initial encounter - Unspecified convulsions INPATIENT VISIT TRACKING (12 MO.) No inpatient visits to display in this time frame [email or web address]
[2023-09-01] MEDS ORDERED: CYCLOBENZAPRINE10 MG PO (06:37)
[2023-09-01] MEDS ORDERED: IBU800 MG PO (06:37)
[2023-09-01 07:42] VITALS: BP 109/59
== END 2023-09-01 07:42 | disposition home or self-care (01) ==
LOC: ED 06:06
DX: S76.312A Strain of muscle, fascia and tendon of the posterior muscle group at thigh level, left thigh, initial encounter (principal); W11.XXXA Fall on and from ladder, initial encounter; G47.00 Insomnia, unspecified; F17.200 Nicotine dependence, unspecified, uncomplicated; Z88.8 Allergy status to other drugs, medicaments and biological substances; Z88.0 Allergy status to penicillin; Z88.7 Allergy status to serum and vaccine; Z91.030 Bee allergy status; Z79.899 Other long term (current) drug therapy
CPT/HCPCS: 73560; 96374; 99283-25; J1885

== ENCOUNTER 2024-05-29 23:18 | Inpatient (IN) | payer OTHER ==
[~2024-05-29] VITALS: Ht 190.5 cm; Wt 78.2 kg
[~2024-05-29 23:18] MED LIST changes: +CYCLOBENZAPRINE10 MG PO; +IBU800 MG PO
[2024-05-29] MEDS ORDERED: levETIRAcetam 500 MG/5 ML VIAL IV ONE (23:45)
[2024-05-29 23:50] LABS: BASOPHILS 0.5 % (0-2); EOSINOPHILS 1.3 % (0-6); HEMATOCRIT 42.9 % (35.0-50.0); HEMOGLOBIN 14.6 g/dL (12.0-18.0); MCH 32.5 (27-36); MCV 95.4 fl (81-99); MONOCYTES 4.8 % (0-12); NEUTROPHILS 61.4 % (39-80); PLATELET COUNT 269 K/uL (140-440); RBC 4.49 M/ul (4.3-5.7); RDW 12.6 (10.5-15.0)
[2024-05-30] VITALS (22 sets, daily range): BP systolic 92–109; BP diastolic 43–70
[2024-05-30 00:06] LABS: ALBUMIN 4.3 g/dL (3.4-5.0); ALBUMIN/GLOBULIN RATIO 1.23 (1.1-2.4); ANION GAP 17.4 (7-21); BILIRUBIN, TOTAL 0.2 ng/dL (0.2-1.0); BUN/CREATININE RATIO 11.26 (6.0-28.6); CREATININE, SERUM 0.71 mg/dL (0.70-1.30); POTASSIUM 3.4 mmol/L (3.5-5.1); PROTEIN, TOTAL 7.8 g/dL (6.4-8.2)
[2024-05-30] MEDS ORDERED: LORazepam 2 MG/ML VIAL IV ONE (00:20)
[2024-05-30] MEDS ORDERED: LORazepam 2 MG/ML VIAL ONE (00:30)
[2024-05-30] MEDS ORDERED: MIDAZOLAM HCL 50 MG in DEXTROSE 5% 90 ML IV SCH (01:00)
[2024-05-30] MEDS ORDERED: SODIUM CHLORIDE 0.9% 1,000 ML IV SCH ×3 (01:00→20:15)
[2024-05-30 01:04] LABS: PH, VENOUS 7.227 (7.31-7.41)
[2024-05-30] MEDS ORDERED: SODIUM CHLORIDE 0.9% 1,000 ML IV PRN (01:15)
[2024-05-30] MEDS ORDERED: LIDOCAINE 2% VISCOUS 6 ML SYR TOP ONE (01:30)
[2024-05-30] MEDS ORDERED: diazePAM 10 MG/2 ML SYR IV ONE (02:45)
[2024-05-30] MEDS ORDERED: SODIUM BICARBONATE 50 MEQ/50 ML VIAL ONE (02:52)
[2024-05-30] MEDS ORDERED: SODIUM BICARBONATE 50 MEQ/50 ML SYR IV SCH (03:00)
[2024-05-30 04:02] LABS: PH, VENOUS 7.311 (7.31-7.41)
[2024-05-30 04:19] LABS: ANION GAP 14.5 (7-21); BUN/CREATININE RATIO 9.85 (6.0-28.6); CALCIUM 7.3 mg/dL (8.5-10.1); CREATININE, SERUM 0.71 mg/dL (0.70-1.30); MAGNESIUM 1.8 mg/dL (1.8-2.4); POTASSIUM 3.5 mmol/L (3.5-5.1)
[2024-05-30] MEDS ORDERED: VALPROATE SODIUM IV ONE (07:30)
[2024-05-30] MEDS ORDERED: DEXTROSE 5% IV ONE (07:30)
[2024-05-30] MEDS ORDERED: levETIRAcetam 500 MG/5 ML VIAL IV ONE (07:30)
[2024-05-30] MEDS ORDERED: SODIUM CHLORIDE 0.9% 1,000 ML IV ONE (08:30)
[2024-05-30] MEDS ORDERED: ENOXAPARIN SODIUM 40 MG/0.4 ML SYR SUB-Q SCH (10:11)
[2024-05-30] MEDS ORDERED: fentaNYL citrate 100 MCG/2 ML VIAL ONE (10:33)
[2024-05-30] MEDS ORDERED: propofoL 100 ML IV SCH (10:45)
[2024-05-30] MEDS ORDERED: fentaNYL citrate 100 MCG/2 ML VIAL IV ONE (10:45)
[2024-05-30] MEDS ORDERED: PHARMACY RENAL DOSE ADJUSTMENT 1 DOSE MISC PO SCH (12:00)
[2024-05-30] MEDS ORDERED: NICOTINE 14 MG/24 HR 1 EA TDSY TD SCH (12:45)
[2024-05-30] MEDS ORDERED: THIAMINE HCL 200 MG/2 ML VIAL IV SCH (13:14)
[2024-05-30] MEDS ORDERED: FOLIC ACID 1 MG/0.2 ML ML IV SCH (13:14)
[2024-05-30] MEDS ORDERED: PANTOPRAZOLE SODIUM 40 MG/10 ML VIAL IV SCH (13:15)
[2024-05-30] MEDS ORDERED: ROCURONIUM BROMIDE 50 MG/5 ML SYR IV ONE (13:32)
[2024-05-30] MEDS ORDERED: ETOMIDATE 40 MG/20 ML VIAL IV ONE (13:32)
[2024-05-30] MEDS ORDERED: THIAMINE HCL IV SCH (13:47)
[2024-05-30] MEDS ORDERED: DEXTROSE 5% IV SCH ×2 (13:47→13:48)
[2024-05-30] MEDS ORDERED: FOLIC ACID IV SCH (13:48)
[2024-05-30] MEDS ORDERED: MIDAZOLAM HCL 100 MG in DEXTROSE 5% 80 ML IV SCH (14:45)
[2024-05-30] MEDS ORDERED: ondansetron HCL 4 MG/2 ML VIAL IV PRN (16:45)
[2024-05-30] MEDS ORDERED: HYDROmorphone HCL 1 MG/ML SYR IV PRN (20:15)
[2024-05-30] MEDS ORDERED: levETIRAcetam 500 MG/5 ML VIAL IV SCH (21:00)
[2024-05-31] VITALS (19 sets, daily range): BP systolic 101–135; BP diastolic 48–75
[2024-05-31 05:29] LABS: PH, VENOUS 7.416 (7.31-7.41)
[2024-05-31 05:33] LABS: HEMOGLOBIN 12.1 g/dL (12.0-18.0)
[2024-05-31 05:36] LABS: BASOPHILS 0.2 % (0-2); EOSINOPHILS 0.3 % (0-6); HEMATOCRIT 34.9 % (35.0-50.0); LYMPHOCYTES 10.2 % (24-44); MCH 33.1 (27-36); MCHC 34.6 g/dl (30-36); MCV 95.6 fl (81-99); MONOCYTES 6.9 % (0-12); NEUTROPHILS 82.4 % (39-80); PLATELET COUNT 166 K/uL (140-440); RBC 3.65 M/ul (4.3-5.7); RDW 12.6 (10.5-15.0)
[2024-05-31 05:44] LABS: ALCOHOL, MEDICAL <3 ng/dL (<3); ANION GAP 17.6 (7-21); BUN/CREATININE RATIO 13.63 (6.0-28.6); CALCIUM 7.8 mg/dL (8.5-10.1); CARBON DIOXIDE 22 mmol/L (21-32); CHLORIDE 108 mmol/L (98-107); CREATININE, SERUM 0.66 mg/dL (0.70-1.30); GLOMERULAR FILTRATION RATE,EST 131 mL/min (>60); MAGNESIUM 1.5 mg/dL (1.8-2.4); POTASSIUM 3.6 mmol/L (3.5-5.1); UREA NITROGEN 9 mg/dL (7-18)
[2024-05-31] MEDS ORDERED: DEXTROSE 5% - NACL 0.9% 1,000 ML IV SCH (06:45)
[2024-05-31] MEDS ORDERED: MAGNESIUM SULFATE 4 GM/100 ML BAG IV ONE (06:45)
[2024-05-31] MEDS ORDERED: MAGNESIUM SULFATE 100 ML IV ONE (09:02)
[2024-05-31] MEDS ORDERED: DIVALPROEX SOD250 MG PO (15:11)
== END 2024-05-31 13:40 | disposition home or self-care (01) | DRG 208 ==
LOC: ED 23:18 → CCU 05-30 10:16
PROVIDERS: Family Medicine; ADMIT Internal Medicine; ATTEND Internal Medicine
PROC: 5A1935Z Respiratory Ventilation, Less than 24 Consecutive Hours (ICD-10-PCS; principal; 2024-05-30)
PROC: 0BH17EZ Insertion of Endotracheal Airway into Trachea, Via Natural or Artificial Opening (ICD-10-PCS; 2024-05-30)
DX: J96.00 Acute respiratory failure, unspecified whether with hypoxia or hypercapnia (principal); R45.851 Suicidal ideations; F10.20 Alcohol dependence, uncomplicated; G31.2 Degeneration of nervous system due to alcohol; F32.9 Major depressive disorder, single episode, unspecified; G40.909 Epilepsy, unspecified, not intractable, without status epilepticus; G47.00 Insomnia, unspecified; F17.210 Nicotine dependence, cigarettes, uncomplicated; Z53.29 Procedure and treatment not carried out because of patient's decision for other reasons; Z90.49 Acquired absence of other specified parts of digestive tract; Z88.7 Allergy status to serum and vaccine; Z88.0 Allergy status to penicillin; Z91.038 Other insect allergy status; Z79.899 Other long term (current) drug therapy
CPT/HCPCS: 36415; 70450; 71045; 80048; 80053; 82803; 83735; 85025; 94002; 94003; C9113; G0480; J1170; J1650; J1953; J2060; J2250; J2405; J2704; J3010; J3360; J3411; J3475; J3490; J7030; J7042

== ENCOUNTER 2024-05-31 20:18 | Emergency (ER) | payer OTHER ==
[~2024-05-31 20:18] MED LIST changes: +DIVALPROEX SOD250 MG PO
[2024-05-31] MEDS ORDERED: MULTIVITAMINS 10 ML,FOLIC ACID 1 MG,THIAMINE HCL 100 MG in SODIUM CHLORIDE 0.9% 1,000 ML IV ONE (20:45)
[2024-05-31] MEDS ORDERED: FOLIC ACID 1 MG/0.2 ML ML ONE (20:46)
[2024-05-31 20:50] LABS: BASOPHILS 0.2 % (0-2); EOSINOPHILS 0.1 % (0-6); HEMATOCRIT 37.9 % (35.0-50.0); HEMOGLOBIN 13.2 g/dL (12.0-18.0); LYMPHOCYTES 10.4 % (24-44); MCH 32.7 (27-36); MCHC 34.8 g/dl (30-36); MCV 93.9 fl (81-99); MONOCYTES 9.3 % (0-12); PLATELET COUNT 194 K/uL (140-440); RBC 4.04 M/ul (4.3-5.7); RDW 12.5 (10.5-15.0)
[2024-05-31 21:01] LABS: ALBUMIN 3.5 g/dL (3.4-5.0); ALBUMIN/GLOBULIN RATIO 0.95 (1.1-2.4); ANION GAP 16.1 (7-21); BILIRUBIN, TOTAL 0.7 ng/dL (0.2-1.0); BUN/CREATININE RATIO 2.56 (6.0-28.6); CALCIUM 8.8 mg/dL (8.5-10.1); CREATININE, SERUM 0.78 mg/dL (0.70-1.30); MAGNESIUM 1.7 mg/dL (1.8-2.4); POTASSIUM 3.1 mmol/L (3.5-5.1); PROTEIN, TOTAL 7.2 g/dL (6.4-8.2)
[2024-05-31] MEDS ORDERED: LIDOCAINE & ANTACID 35 ML BTL PO ONE (21:15)
[2024-05-31] MEDS ORDERED: MAGNESIUM OXIDE 400 MG TABLET PO ONE (21:15)
[2024-05-31 22:31] VITALS: BP 145/89
== END 2024-05-31 22:33 | disposition home or self-care (01) ==
LOC: ED 20:18
PROVIDERS: Family Medicine
DX: J02.9 Acute pharyngitis, unspecified (principal); F17.200 Nicotine dependence, unspecified, uncomplicated; Z88.0 Allergy status to penicillin; Z88.7 Allergy status to serum and vaccine; Z91.030 Bee allergy status; Z79.899 Other long term (current) drug therapy
CPT/HCPCS: 36415; 80053; 83735; 85025; 96374; 99283; G0480; J3411; J7030

== ENCOUNTER 2024-10-22 07:20 | Emergency (ER) | payer OTHER ==
[~2024-10-22] VITALS: Ht 190.5 cm; Wt 73.0 kg
--- OUTSIDE RECORDS SUMMARY | ~2024-10-22 | XMS | Continuity of Care Document ---
Demographics + + + | Address | [address] | | | [place] [address] | + + + | Preferred Language | Unknown | + + + | Marital Status | Never | + + + | Hindu Affiliation | Unknown | + + + | Race | White | + + + | Ethnic Group | Unknown | + + + Author + + + | Author | [facility] | + + + | Organization | [facility] | + + + | Address | [address] | | | [place] [address] | + + + | Phone | | + + + Care Team Providers + + + + | Care Marketing Communications Specialist Name | Role | Phone | + + + + Unavailable | Unavailable | + + + + Allergies No information. Encounters No information. Functional Status No information. Immunizations No information. Medications No information. 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 Results/Labs No information. Social History +--------+ + + | date | description | facility | +--------+ + + Vital Signs No information."
[2024-10-22] MEDS ORDERED: levETIRAcetam 500 MG TAB PO ONE (07:45)
[2024-10-22] MEDS ORDERED: HYDROmorphone HCL 2 MG/ML VIAL IM ONE (07:45)
[2024-10-22] MEDS ORDERED: IBUPROFEN 600 MG TAB PO ONE (08:30)
[2024-10-22] MEDS ORDERED: ACETAMINOPHEN 500 MG TAB PO ONE (08:30)
[2024-10-22] MEDS ORDERED: HYDROCODON-ACE1 EA11 PO (08:52)
[2024-10-22 09:00] VITALS: BP 115/69
== END 2024-10-22 09:00 | disposition home or self-care (01) ==
LOC: ED 07:20
DX: S83.91XA Sprain of unspecified site of right knee, initial encounter (principal); S93.401A Sprain of unspecified ligament of right ankle, initial encounter; F17.200 Nicotine dependence, unspecified, uncomplicated; Z91.030 Bee allergy status; Z88.7 Allergy status to serum and vaccine; Z88.0 Allergy status to penicillin; Z79.899 Other long term (current) drug therapy; W19.XXXA Unspecified fall, initial encounter
CPT/HCPCS: 73560; 73590; 73610; 96372; 99283; A9270; J1171

== ENCOUNTER 2024-12-01 09:27 | Emergency (ER) | payer OTHER ==
[~2024-12-01] VITALS: Ht 190.5 cm; Wt 78.5 kg
[2024-12-01] MEDS ORDERED: HYDROCODON-ACE1 EA10 PO (10:12)
[2024-12-01] MEDS ORDERED: BACTRIM DS TAB1 EACH PO (10:12)
[2024-12-01] MEDS ORDERED: HYDROCODONE/ACETA 5/325 TAB PO ONE (10:15)
[2024-12-01] MEDS ORDERED: TRIMETHOPRIM/SULFAMETHOXAZOLE 1 EA TAB PO ONE (10:15)
[2024-12-01 10:23] VITALS: BP 137/85
== END 2024-12-01 10:25 | disposition home or self-care (01) ==
LOC: ED 09:27
DX: L03.211 Cellulitis of face (principal); F17.200 Nicotine dependence, unspecified, uncomplicated; Z91.030 Bee allergy status; Z88.7 Allergy status to serum and vaccine; Z88.0 Allergy status to penicillin; Z79.899 Other long term (current) drug therapy
CPT/HCPCS: 99283; A9270

== ENCOUNTER 2024-12-04 10:45 | Emergency (ER) | payer OTHER ==
[~2024-12-04] VITALS: Ht 190.5 cm; Wt 78.0 kg
[~2024-12-04 10:45] MED LIST changes: +BACTRIM DS TAB1 EACH PO
[2024-12-04] MEDS ORDERED: CEPHALEXIN500 M1 PO (11:25)
[2024-12-04 11:31] VITALS: BP 151/90
[2024-12-05] MEDS ORDERED: HYDROCODON-ACE1 EA10 PO (14:22)
== END 2024-12-04 11:31 | disposition home or self-care (01) ==
LOC: ED 10:45
DX: L02.01 Cutaneous abscess of face (principal); F17.200 Nicotine dependence, unspecified, uncomplicated; Z88.0 Allergy status to penicillin; Z88.7 Allergy status to serum and vaccine; Z91.030 Bee allergy status; Z79.899 Other long term (current) drug therapy
CPT/HCPCS: 10060; 87070; 87075; 87076; 87205; 99283-25

== ENCOUNTER 2024-12-05 11:39 | Emergency (ER) | payer OTHER ==
[~2024-12-05] VITALS: Ht 190.5 cm; Wt 78.0 kg
[~2024-12-05 11:39] MED LIST changes: +CEPHALEXIN500 M1 PO
[2024-12-05] MEDS ORDERED: HYDROCODONE/ACETA 5/325 TAB PO ONE (13:45)
[2024-12-05] MEDS ORDERED: HYDROCODON-ACE1 EA10 PO (14:22)
[2024-12-05 14:29] VITALS: BP 138/96
== END 2024-12-05 14:25 | disposition home or self-care (01) ==
LOC: ED 11:39
DX: Z48.00 Encounter for change or removal of nonsurgical wound dressing (principal); L02.01 Cutaneous abscess of face; F17.200 Nicotine dependence, unspecified, uncomplicated; Z88.0 Allergy status to penicillin; Z88.7 Allergy status to serum and vaccine; Z91.030 Bee allergy status; Z79.899 Other long term (current) drug therapy
CPT/HCPCS: 99282

== ENCOUNTER 2025-02-24 10:42 | Emergency (ER) | payer OTHER ==
[~2025-02-24] VITALS: Ht 190.5 cm; Wt 75.3 kg
[2025-02-24] MEDS ORDERED: DEXAMETHASONE SOD PHOS 10 MG/ML VIAL PO ONE (11:15)
[2025-02-24] MEDS ORDERED: diphenhydrAMINE HCL 25 MG CAP PO ONE (11:15)
[2025-02-24] MEDS ORDERED: CEPHALEXIN MONOHYDRATE 500 MG CAP PO ONE (11:15)
[2025-02-24] MEDS ORDERED: TRIMETHOPRIM/SULFAMETHOXAZOLE 1 EA TAB PO ONE (11:15)
[2025-02-24] MEDS ORDERED: ACETAMINOPHEN 500 MG TAB PO ONE (14:15)
[2025-02-24] MEDS ORDERED: CEPHALEXIN500 M1 PO (14:45)
[2025-02-24] MEDS ORDERED: BACTRIM DS TAB1 EACH PO (14:45)
[2025-02-24 14:50] VITALS: BP 113/63
== END 2025-02-24 14:50 | disposition home or self-care (01) ==
LOC: ED 10:42
DX: L02.01 Cutaneous abscess of face (principal); T63.441A Toxic effect of venom of bees, accidental (unintentional), initial encounter; F17.200 Nicotine dependence, unspecified, uncomplicated; Z91.038 Other insect allergy status; Z88.7 Allergy status to serum and vaccine; Z88.0 Allergy status to penicillin
CPT/HCPCS: 10060; 99282-25; A9270; J1100

== ENCOUNTER 2025-05-06 11:52 | Emergency (ER) | payer OTHER ==
[~2025-05-06] VITALS: Ht 190.5 cm; Wt 75.3 kg
[2025-05-06] MEDS ORDERED: IBUPROFEN 600 MG TAB PO ONE (13:45)
[2025-05-06 15:33] VITALS: BP 124/98
== END 2025-05-06 15:47 | disposition home or self-care (01) ==
LOC: ED 11:52
DX: M25.561 Pain in right knee (principal); G47.00 Insomnia, unspecified; F17.200 Nicotine dependence, unspecified, uncomplicated; Z79.899 Other long term (current) drug therapy; Z88.0 Allergy status to penicillin; Z88.7 Allergy status to serum and vaccine; Z91.030 Bee allergy status
CPT/HCPCS: 73560; 73590; 73630; 99283; A9270

== ENCOUNTER 2025-07-27 09:58 | Emergency (ER) | payer OTHER ==
[~2025-07-27] VITALS: Ht 190.5 cm; Wt 75.3 kg
[2025-07-27] MEDS ORDERED: levETIRAcetam 500 MG TAB PO ONE (10:15)
[2025-07-27] MEDS ORDERED: ACETAMINOPHEN 500 MG TAB PO ONE (10:15)
[2025-07-27] MEDS ORDERED: ONDANSETRON 4 MG TAB ODT SL ONE (11:00)
[2025-07-27 12:38] VITALS: BP 121/69
== END 2025-07-27 12:37 | disposition home or self-care (01) ==
LOC: ED 09:58
DX: G40.909 Epilepsy, unspecified, not intractable, without status epilepticus (principal); F17.200 Nicotine dependence, unspecified, uncomplicated; Z88.7 Allergy status to serum and vaccine; Z88.0 Allergy status to penicillin; Z91.030 Bee allergy status; Z79.899 Other long term (current) drug therapy
CPT/HCPCS: 99283; A9270